=== PATIENT | female | born 1960 | race Two or more races ===

== ENCOUNTER 2017-06-24 17:37 | Inpatient (IN) | payer MEDICAID ==
[~2017-06-24] VITALS: Ht 162.6 cm; Wt 63.2 kg
[2017-06-24] VITALS (20 sets, daily range): BP systolic 53–132; BP diastolic 28–90
[~2017-06-24 17:37] MED LIST: Ertapenem 1 GM in NS 55 ML IV SCH
[2017-06-24] MEDS ORDERED: Vancomycin 1 GM in NS 275 ML IV ONE (17:45)
[2017-06-24] MEDS ORDERED: Zemuron 50mg/5ml Inj IV ONE (17:45)
[2017-06-24] MEDS ORDERED: Cefepime HCl 1 GM in NS 55 ML IV SCH (17:45)
[2017-06-24] MEDS ORDERED: Etomidate 40mg/20ml Inj IV ONE (17:45)
[2017-06-24] MEDS ORDERED: Cefepime 1gm vial ONE (17:56)
[2017-06-24] MEDS ORDERED: Levophed 4mg/4mL Inj IV ONE (18:41)
[2017-06-24 18:53] LABS: ABG ALLEN TEST POSITIVE; ABG BASE EXCESS 8.4; ABG PCO2 54.2 mmHg (35.0-45.0)
[2017-06-24 18:54] LABS: MEAN CORPUSCULAR HEMOGLOBIN 30.3 PG (27.0-31.0); MEAN CORPUSCULAR HGB CONC 32.8 G/DL (32.0-36.0); MEAN CORPUSCULAR VOLUME 93 FL (80-99); PLATELET COUNT 430 K/UL (150-450); RED BLOOD COUNT 2.94 M/UL (4.20-5.40); RED CELL DISTRIBUTION WIDTH 18.2 % (11.6-14.8); WHITE BLOOD COUNT 21.1 K/UL (4.8-10.8)
--- NOTE | 2017-06-24 18:55 | Emergency Room Report ---
History of Present Illness General Chief Complaint: Vomiting Source: Patient, EMS Present Illness HPI Patient is brought in by EMS. Report is obtained through them. Apparently she has stage IV metastatic cancer. I am uncertain of the source. She is being treated at [facility]. She was recently discharged from [facility]. Apparently for the past couple days the patient has been unresponsive at home. The called 911. On arrival she has a GCS of 3, is unresponsive and has agonal breathing. She is bradycardic with a pulse ox in the high 40s. Apparently she had an episode of emesis just prior to arrival. There is no other history available. Allergies: Coded Allergies: No Known Allergies (Unverified , 06/24/17) Patient History Past Medical History: see triage record, unable to obtain, other - Stage 4 metastatic ca Past Surgical History: unable to obtain Pertinent Family History: unable to obtain Nursing Documentation-PMH Hx Cancer: Yes - STAGE 4 CARCINOMA Review of Systems All Other Systems: limited Physical Exam Vital Signs Date Time Temp Pulse Resp B/P (MAP) Pulse Ox O2 Delivery O2 Flow Rate FiO2 06/24/17 17:27 19 109/69 93 Non-Rebreather 15.0 06/24/17 17:38 124 100 Sp02 EP Interpretation: reviewed, abnormal General Appearance: severe distress, other - Unresponsive, agonal breathing. Head: normocephalic, atraumatic ENT: no angioedema, other - Dark colored fluid pouring from esophagus Neck: normal inspection, full range of motion, supple Respiratory: other - agonal breathing, No BS on the L. Cardiovascular #1: bradycardia Gastrointestinal: distended Musculoskeletal: normal inspection Neurologic: other - GCS 3 Skin: normal inspection, other - See RN skin exam Procedures Intubation Intubation : Consent: Emergent Intubation Method: orotracheal Tube Size (cm): 7.5 Medications: Etomidate, Rocuronium Breath Sounds after Intubation: right greater than left Intubation Complications: no complications Post Intubation Xray: Yes Progress/Xray Impression: Deep about 1 cm into R. main stem bronchus Attempts: One Patient Tolerated: Well Complications: None Medical Decision Making Diagnostic Impression: Primary Impression: Respiratory failure Additional Impressions: Pulmonary edema Pleural effusion Sepsis Hypotension Anemia Lactic acid acidosis Septic shock Elevated troponin ER Course This patient presented in respiratory failure. She also appears to likely have aspirated. She was intubated on arrival with rapid sequence intubation. See my procedure note. She also is hypertensive, tachycardic with a leukocytosis. She meets criteria for septic shock. She was given aggressive IV fluid resuscitation, broad-spectrum antibiotics and started on levophed. The patient' s chest x-ray showed white out of the left chest. The initial endotracheal tube was in the right mainstem. This was retracted 2 cm. Repeat chest x-ray shows good inflation of the left lung. There was some residual left pleural effusion. This patient has a very poor prognosis. This patient is critically ill. This patient required complex medical decision- making, aggressive intervention, extensive laboratory workup and monitoring. Critical care time: 40 minutes. Laboratory Tests Test 06/24/17 18:00 06/24/17 18:17 06/24/17 19:27 06/24/17 19:29 White Blood Count 21.1 K/UL (4.8-10.8) H Red Blood Count 2.94 M/UL (4.20-5.40) L Hemoglobin 8.9 G/DL (12.0-16.0) L Hematocrit 27.3 % (37.0-47.0) L Mean Corpuscular Volume 93 FL (80-99) Mean Corpuscular Hemoglobin 30.3 PG (27.0-31.0) Mean Corpuscular Hemoglobin Concent 32.8 G/DL (32.0-36.0) Red Cell Distribution Width 18.2 % (11.6-14.8) H Platelet Count 430 K/UL (150-450) Mean Platelet Volume 6.0 FL (6.5-10.1) L Neutrophils (%) (Auto) % (45.0-75.0) Lymphocytes (%) (Auto) % (20.0-45.0) Monocytes (%) (Auto) % (1.0-10.0) Eosinophils (%) (Auto) % (0.0-3.0) Basophils (%) (Auto) % (0.0-2.0) Neutrophils % (Manual) Pending Lymphocytes % (Manual) Pending Platelet Estimate Pending Platelet Morphology Pending Prothrombin Time 14.0 SEC (9.30-11.50) H Prothrombin Time INR 1.3 (0.9-1.1) H PTT 45 SEC (23-33) H Sodium Level 145 mEQ/L (135-145) Potassium Level 4.8 mEQ/L (3.4-4.9) Chloride Level 105 mEQ/L (98-107) Carbon Dioxide Level 33 mEQ/L (20-30) H Anion Gap 7 (5-15) Blood Urea Nitrogen 31 mg/dL (7-23) H Creatinine 0.7 mg/dL (0.5-0.9) Estimate Glomerular Filtration Rate > 60 mL/min (>60) Glucose Level 180 mg/dL (74-106) H Lactic Acid Level 3.10 mmol/L (0.66-2.22) H 1.70 mmol/L (0.66-2.22) Calcium Level 7.8 mg/dL (8.6-10.2) L Magnesium Level 2.3 mg/dL (1.7-2.5) Total Bilirubin 0.2 mg/dL (0.0-1.2) Aspartate Amino Transferase (AST) 19 U/L (5-40) Alanine Aminotransferase (ALT) 12 U/L (3-33) Alkaline Phosphatase 293 U/L (35-104) H Total Creatine Kinase 67 U/L (26-140) Creatine Kinase MB < 1.5 ng/mL (< 3.8) Creatine Kinase MB Relative Index Troponin I 0.34 ng/mL (<=0.30) *H Total Protein 5.1 g/dL (6.6-8.7) L Albumin 2.7 g/dL (3.5-5.2) L Globulin 2.4 g/dL Albumin/Globulin Ratio 1.1 (1.0-2.7) Arterial Blood pH 7.416 (7.350-7.450) Arterial Blood Partial Pressure CO2 54.2 mmHg (35.0-45.0) H Arterial Blood Partial Pressure O2 173.2 mmHg (75.0-100.0) H Arterial Blood HCO3 34.1 mmol/L (22.0-26.0) H Arterial Blood Oxygen Saturation 99.0 % (92.0-98.0) H Arterial Blood Base Excess 8.4 Jeffry Test Positive Urine Color Yellow Urine Appearance Slightly cloudy Urine pH 6 (4.5-8.0) Urine Specific [place] 1.020 (1.005-1.035) Urine Protein 3+ (NEGATIVE) H Urine Glucose (UA) Negative (NEGATIVE) Urine Ketones 1+ (NEGATIVE) H Urine Occult Blood 3+ (NEGATIVE) H Urine Nitrite Negative (NEGATIVE) Urine Bilirubin Negative (NEGATIVE) Urine Urobilinogen Normal MG/DL (0.0-1.0) Urine Leukocyte Esterase 1+ (NEGATIVE) H Urine RBC Pending Urine WBC Pending Urine Squamous Epithelial Cells Pending Urine Bacteria Pending EKG Diagnostic Results Rate: tachycardiac Rhythm: other ST Segments: no acute changes Other Impression S.tachycardia Rhythm Strip Diag. Results EP Interpretation: yes Rate: 130's Rhythm: no ectopy, other Other Impression A.tachycardia Chest X-Ray Diagnostic Results Chest X-Ray Diagnostic Results : Chest X-Ray Ordered: Yes # of Views/Limited/Complete: 1 View Indication: Shortness of Breath EP Interpretation: Yes Interpretation: other Impression: Other - Entire left lung opacified. Diffuse pulmonary edema. Endotracheal tube in the right mainstem. Appropriate and G-tube placement Electronically Signed by: Iliana CT/MRI/US Diagnostic Results CT/MRI/US Diagnostic Results : Imaging Test Ordered: CT head Impression No identifiable acute or recent territorial infarct. No localizing mass effect or edema. No midline shift or hemorrhage. Last Vital Signs Date Time Temp Pulse Resp B/P (MAP) Pulse Ox O2 Delivery O2 Flow Rate FiO2 06/24/17 17:44 129 14 100 06/24/17 17:38 68/40 93 Mechanical Ventilator 06/24/17 17:27 15.0 Disposition: ADMITTED INPATIENT Condition: Critical Referrals: NON PHYSICIAN (PCP) ROSAMARIA YO D.O. Jun 24, 2017 18:55
[2017-06-24] MEDS ORDERED: Vancomycin 1gm inj IVPB ONE (18:56)
[2017-06-24 18:59] LABS: INR 1.3 (0.9-1.1)
[2017-06-24 19:09] LABS: ALANINE AMINOTRANSFERASE 12 U/L (3-33); ALBUMIN/GLOBULIN RATIO 1.1 (1.0-2.7); ANION GAP 7 (5-15); ASPARTATE AMINO TRANSFERASE 19 U/L (5-40); CALCIUM 7.8 mg/dL (8.6-10.2); CARBON DIOXIDE 33 mEQ/L (20-30); CHLORIDE 105 mEQ/L (98-107); CREATININE 0.7 mg/dL (0.5-0.9); GLOMERULAR FILTRATION RATE > 60 mL/min (>60); HEMOLYSIS 9; MAGNESIUM 2.3 mg/dL (1.7-2.5); POTASSIUM 4.8 mEQ/L (3.4-4.9); SODIUM 145 mEQ/L (135-145); TOTAL PROTEIN 5.1 g/dL (6.6-8.7)
[2017-06-24 19:13] LABS: REFLEX LACTIC ACID YES OR NO YES
[2017-06-24 19:15] LABS: TROPONIN I 0.34 ng/mL (<=0.30)
[2017-06-24 19:20] LABS: CKMB < 1.5 ng/mL (< 3.8)
[2017-06-24 19:46] LABS: KETONES,URINE 1+ (NEGATIVE); LEUKOCYTE ESTERASE ,URINE 1+ (NEGATIVE); NITRITE,URINE NEGATIVE (NEGATIVE); PH,URINE 6 (4.5-8.0); PROTEIN,URINE 3+ (NEGATIVE); UROBILINOGEN,URINE NORMAL MG/DL (0.0-1.0)
[2017-06-24 19:49] LABS: APPEARANCE,URINE SLIGHTLY CLOUDY
[2017-06-24] MEDS ORDERED: NKM (19:53)
[2017-06-24 20:26] LABS: AMORPHOUS SEDIMENT,UR MODERATE /LPF; BACTERIA,URINE MODERATE /HPF; SQUAMOUS EPITHELIAL CELL,UR FEW /LPF (NONE/OCC)
[2017-06-24 20:36] LABS: ANISOCYTOSIS 1+; BAND NEUTROPHILS % (MANUAL) 3 % (0-8); BASOPHILS % (MANUAL) 0 % (0-2); EOSINOPHILS % (MANUAL) 0 % (0-3); HYPOCHROMASIA 1+; LYMPHOCYTES % (MANUAL) 11 % (20-45); NEUTROPHILS % (MANUAL) 82 % (45-75); PLATELET ESTIMATE ADEQUATE; PLATELET MORPHOLOGY NORMAL; TOTAL CELLS COUNTED 100
[2017-06-24] MEDS ORDERED: LORazepam Inj 2mg/ml 1ml IV PRN (21:30)
[2017-06-24] MEDS ORDERED: Miralax 17gm pkt ORAL PRN (21:30)
[2017-06-24] MEDS ORDERED: DuoNeb 0.5-3(2.5)mg/3ml neb HHN PRN (21:30)
[2017-06-24] MEDS ORDERED: Amikacin Rx to dose MISC PRN (22:00)
--- NOTE | 2017-06-24 23:05 | History and Physical ---
History of Present Illness General Date patient seen: Jun 24, 2017 Reason for Hospitalization: Vomiting Present Illness HPI 56 year old female with hx of metastatic cancer, brought in by EMS since she has been unresponsive at home for a few days. On arrival she had a GCS of 3, was unresponsive and had agonal breathing. She was bradycardic with a pulse ox in the high 40s. She was intubated in ER and started on pressors and transferred to ICU. Allergies: Coded Allergies: No Known Allergies (Unverified , 06/24/17) Medication History Scheduled Enoxaparin* (Lovenox*), 1 ML SUBQ DAILY, (Reported) Levofloxacin* (Levaquin*), 750 MG ORAL DAILY, (Reported) Metronidazole* (Flagyl*), 500 MG ORAL EVERY 6 HOURS, (Reported) No Known Medications* (NKM - No Known Medications*), 0 ., (Reported) Omeprazole (Omeprazole), 20 MG ORAL BID, (Reported) Potassium Chloride (Potassium Chloride), 30 MEQ PO EVERY 12 HOURS, (Reported) Scheduled PRN Acetaminophen* (Tylenol Extra Strength*), 500 MG ORAL Q6H PRN for fever, ( Reported) Morphine 10mg/5ml Oral Soln* (Morphine 10mg/5ml Oral Soln*), 15 MG ORAL EVERY 12 HOURS PRN for For Pain, (Reported) Morphine 10mg/5ml Oral Soln* (Morphine 10mg/5ml Oral Soln*), 2.5 ML ORAL EVERY 4 HOURS PRN for For Pain, (Reported) Ondansetron Odt* (Zofran Odt*), 4 MG ORAL Q6H PRN for Nausea & Vomiting, ( Reported) Patient History Healthcare decision maker Resuscitation status Advanced Directive on File Past Medical/Surgical History Past Medical/Surgical History: (1) Metastatic adenocarcinoma Review of Systems All Other Systems: negative except mentioned in HPI Physical Exam General Appearance: cachetic Lines, tubes and drains: peripheral HEENT: normocephalic, atraumatic Neck: non-tender, normal alignment Respiratory/Chest: chest wall non-tender, lungs clear Cardiovascular/Chest: normal peripheral pulses, normal rate Abdomen: normal bowel sounds, non tender Genitourinary/Rectal: normal genital exam Skin Exam: normal pigmentation Last 24 Hour Vital Signs Date Time Temp Pulse Resp B/P (MAP) Pulse Ox O2 Delivery O2 Flow Rate FiO2 9/11/17 22:28 95/57 06/24/17 21:29 110 14 60 06/24/17 19:50 103.9 126 14 125/65 100 Mechanical Ventilator 15.0 100 06/24/17 19:40 125/65 06/24/17 19:39 15.0 100 06/24/17 19:30 120 14 60 06/24/17 19:30 126 14 127/88 100 Mechanical Ventilator 60 06/24/17 19:15 130 14 125/90 100 Mechanical Ventilator 15.0 100 06/24/17 19:00 103.9 106 14 132/85 100 Mechanical Ventilator 15.0 100 06/24/17 18:55 67/44 06/24/17 18:54 67/44 06/24/17 17:44 129 14 100 06/24/17 17:38 124 18 68/40 93 Mechanical Ventilator 100 06/24/17 17:27 19 109/69 93 Non-Rebreather 15.0 Intake and Output 06/24/17 06/25/17 19:00 07:00 Intake Total 0 ml Output Total 0 ml Balance 0 ml Intake Oral 0 ml Output Urine Total 0 ml # Voids 20 Laboratory Tests Test 06/24/17 18:00 06/24/17 18:17 06/24/17 19:27 06/24/17 19:29 White Blood Count 21.1 K/UL (4.8-10.8) H Red Blood Count 2.94 M/UL (4.20-5.40) L Hemoglobin 8.9 G/DL (12.0-16.0) L Hematocrit 27.3 % (37.0-47.0) L Mean Corpuscular Volume 93 FL (80-99) Mean Corpuscular Hemoglobin 30.3 PG (27.0-31.0) Mean Corpuscular Hemoglobin Concent 32.8 G/DL (32.0-36.0) Red Cell Distribution Width 18.2 % (11.6-14.8) H Platelet Count 430 K/UL (150-450) Mean Platelet Volume 6.0 FL (6.5-10.1) L Neutrophils (%) (Auto) % (45.0-75.0) Lymphocytes (%) (Auto) % (20.0-45.0) Monocytes (%) (Auto) % (1.0-10.0) Eosinophils (%) (Auto) % (0.0-3.0) Basophils (%) (Auto) % (0.0-2.0) Differential Total Cells Counted 100 Neutrophils % (Manual) 82 % (45-75) H Lymphocytes % (Manual) 11 % (20-45) L Monocytes % (Manual) 4 % (1-10) Eosinophils % (Manual) 0 % (0-3) Basophils % (Manual) 0 % (0-2) Band Neutrophils 3 % (0-8) Platelet Estimate Adequate Platelet Morphology Normal Hypochromasia 1+ Anisocytosis 1+ Prothrombin Time 14.0 SEC (9.30-11.50) H Prothromb Time International Ratio 1.3 (0.9-1.1) H Activated Partial Thromboplast Time 45 SEC (23-33) H Sodium Level 145 mEQ/L (135-145) Potassium Level 4.8 mEQ/L (3.4-4.9) Chloride Level 105 mEQ/L (98-107) Carbon Dioxide Level 33 mEQ/L (20-30) H Anion Gap 7 (5-15) Blood Urea Nitrogen 31 mg/dL (7-23) H Creatinine 0.7 mg/dL (0.5-0.9) Estimat Glomerular Filtration Rate > 60 mL/min (>60) Glucose Level 180 mg/dL (74-106) H Lactic Acid Level 3.10 mmol/L (0.66-2.22) H 1.70 mmol/L (0.66-2.22) Calcium Level 7.8 mg/dL (8.6-10.2) L Magnesium Level 2.3 mg/dL (1.7-2.5) Total Bilirubin 0.2 mg/dL (0.0-1.2) Aspartate Amino Transf (AST/SGOT) 19 U/L (5-40) Alanine Aminotransferase (ALT/SGPT) 12 U/L (3-33) Alkaline Phosphatase 293 U/L (35-104) H Total Creatine Kinase 67 U/L (26-140) Creatine Kinase MB < 1.5 ng/mL (< 3.8) Creatine Kinase MB Relative Index Troponin I 0.34 ng/mL (<=0.30) *H Total Protein 5.1 g/dL (6.6-8.7) L Albumin 2.7 g/dL (3.5-5.2) L Globulin 2.4 g/dL Albumin/Globulin Ratio 1.1 (1.0-2.7) Arterial Blood pH 7.416 (7.350-7.450) Arterial Blood Partial Pressure CO2 54.2 mmHg (35.0-45.0) H Arterial Blood Partial Pressure O2 173.2 mmHg (75.0-100.0) H Arterial Blood HCO3 34.1 mmol/L (22.0-26.0) H Arterial Blood Oxygen Saturation 99.0 % (92.0-98.0) H Arterial Blood Base Excess 8.4 Jeffry Test Positive Urine Color Yellow Urine Appearance Slightly cloudy Urine pH 6 (4.5-8.0) Urine Specific [place] 1.020 (1.005-1.035) Urine Protein 3+ (NEGATIVE) H Urine Glucose (UA) Negative (NEGATIVE) Urine Ketones 1+ (NEGATIVE) H Urine Occult Blood 3+ (NEGATIVE) H Urine Nitrite Negative (NEGATIVE) Urine Bilirubin Negative (NEGATIVE) Urine Urobilinogen Normal MG/DL (0.0-1.0) Urine Leukocyte Esterase 1+ (NEGATIVE) H Urine RBC 5-10 /HPF (0 - 2) H Urine WBC 2-4 /HPF (0 - 2) Urine Squamous Epithelial Cells Few /LPF (NONE/OCC) Urine Amorphous Sediment Moderate /LPF (NONE) H Urine Bacteria Moderate /HPF (NONE) H Height (Feet): 5 Height (Inches): 4.00 Weight (Pounds): 130 Medications Current Medications Medications (Trade) Dose Ordered Sig/[place] Route PRN Reason Start Time Stop Time Status Last Admin Dose Admin Acetaminophen (Tylenol) 650 mg Q4H PRN ORAL fever 06/24/17 21:30 07/24/17 21:29 Albuterol/ Ipratropium (DuoNeb 0.5-3(2.5)mg/3ml) 3 ml Q4H PRN HHN Shortness of Breath 06/24/17 21:30 06/29/17 21:29 Amikacin Protocol (Amikacin pharmacy to dose) 1 ea DAILY PRN MISC Per rx protocol 06/24/17 22:00 07/24/17 21:59 Amikacin Sulfate 800 mg/Sodium Chloride 113.2 ml @ 113.2 mls/ hr Q24H IV 06/25/17 00:00 07/02/17 00:00 Ertapenem 1 gm/ Sodium Chloride 55 ml @ 110 mls/hr Q24H IV 06/25/17 02:00 06/30/17 01:59 Heparin Sodium (Porcine) (Heparin 5000 units/ml) 5,000 units EVERY 12 HOURS SUBQ 06/25/17 09:00 07/25/17 08:59 Lorazepam (Ativan 2mg/ml 1ml) 2 mg Q2H PRN IV For Anxiety 06/24/17 21:30 07/01/17 21:29 Morphine Sulfate (Morphine Sulfate) 4 mg Q4H PRN IVP Severe Pain (Pain Scale 7-10) 06/24/17 21:30 07/01/17 21:29 Norepinephrine Bitartrate 4 mg/ Dextrose 254 ml @ 0 mls/hr Q24H IV 06/24/17 22:00 07/24/17 21:59 06/24/17 22:28 Ondansetron HCl (Zofran) 4 mg Q6H PRN IVP Nausea & Vomiting 06/24/17 21:30 07/24/17 21:29 Pantoprazole (Protonix) 40 mg DAILY IVP 06/25/17 09:00 07/25/17 08:59 Polyethylene Glycol (Miralax) 17 gm DAILYPRN PRN ORAL Constipation 06/24/17 21:30 07/24/17 21:29 Sodium Chloride 1,000 ml @ 100 mls/hr Q10H IVLG 06/24/17 22:30 07/24/17 22:29 06/24/17 22:21 Vancomycin HCl (Vanco rx to dose) 1 ea DAILY PRN MISC PRN RX PROTOCOL 06/24/17 22:00 07/24/17 21:59 Vancomycin/Sodium Chloride 250 ml @ 166.667 mls/hr Q12HR@0600,1800 IVPB 06/25/17 06:00 06/30/17 05:59 Assessment/Plan Problem List: (1) Respiratory failure ICD Codes: J96.90 - Respiratory failure, unspecified, unspecified whether with hypoxia or hypercapnia SNOMED: 461210482 (2) Septic shock ICD Codes: A41.9 - Sepsis, unspecified organism; R65.21 - Severe sepsis with septic shock SNOMED: 65650597 (3) Hypotension ICD Codes: I95.9 - Hypotension, unspecified SNOMED: 85366635, 267859093 (4) Metastatic adenocarcinoma ICD Codes: C79.9 - Secondary malignant neoplasm of unspecified site SNOMED: 3924905, 174566218 (5) Anemia ICD Codes: D64.9 - Anemia, unspecified SNOMED: 019112507 (6) Pleural effusion ICD Codes: J90 - Pleural effusion, not elsewhere classified; R65.21 - Severe sepsis with septic shock SNOMED: 75846072 Respiratory: monitor respiratory rate, adjust FIO2, CXR Cardiac: continue to monitor HR/BP Renal: F/U I&O, keep IV fluid Infectious Disease: check cultures, continue antibiotics Endocrine: monitor blood sugar Hematologic: monitor H/H, transfuse if hgb<8.5 Neurologic: PRN Morphine, keep patient comfortable Affect: PRN ativan Prophylaxis: Protonix Disposition: keep in ICU Discussed with: nurses, consultants, medical case manager NIXON CHEATHAM Jun 24, 2017 23:05
[2017-06-24] MEDS ORDERED: Vancomycin 1 GM in D5W 275 ML IV SCH (23:45)
[2017-06-25] VITALS (70 sets, daily range): BP systolic 72–126; BP diastolic 4–97
[2017-06-25] MEDS: Amikacin 800 MG in NS 110 ML IV SCH (00:06)
[2017-06-25] MEDS: Ertapenem 1 GM in NS 55 ML IV SCH (01:41)
[2017-06-25] MEDS ORDERED: TYLENOL EXTRA500 MG ORAL (02:01)
[2017-06-25] MEDS ORDERED: ZOFRAN ODT4 MG ORAL (02:01)
[2017-06-25] MEDS ORDERED: LEVAQUIN750 MG ORAL (02:01)
[2017-06-25] MEDS ORDERED: METRONIDAZOLE500 MG ORAL (02:01)
[2017-06-25] MEDS ORDERED: POTASSIUM40 MEQ/11 PO (02:01)
[2017-06-25] MEDS ORDERED: MORPHINE S10 MG/5 ML ORAL ×2 (02:01)
[2017-06-25] MEDS ORDERED: OMEPRAZOLE20 M2 ORAL (02:01)
[2017-06-25] MEDS ORDERED: LOVENOX10 MG SUBQ (02:01)
[2017-06-25] MEDS: Morphine Sulfate 4mg/ml Inj IVP PRN ×3 (03:06→21:52)
[2017-06-25 05:24] LABS: MEAN CORPUSCULAR HEMOGLOBIN 30.3 PG (27.0-31.0); MEAN CORPUSCULAR HGB CONC 32.8 G/DL (32.0-36.0); MEAN CORPUSCULAR VOLUME 92 FL (80-99); PLATELET COUNT 468 K/UL (150-450); RED BLOOD COUNT 3.04 M/UL (4.20-5.40); RED CELL DISTRIBUTION WIDTH 17.8 % (11.6-14.8); WHITE BLOOD COUNT 20.1 K/UL (4.8-10.8)
[2017-06-25 05:44] LABS: ALANINE AMINOTRANSFERASE 15 U/L (3-33); ALBUMIN/GLOBULIN RATIO 1.2 (1.0-2.7); ANION GAP 12 (5-15); ASPARTATE AMINO TRANSFERASE 53 U/L (5-40); BILIRUBIN,DIRECT 0.1 mg/dL (0.1-0.3); CALCIUM 7.5 mg/dL (8.6-10.2); CARBON DIOXIDE 30 mEQ/L (20-30); CHLORIDE 110 mEQ/L (98-107); CREATININE 0.6 mg/dL (0.5-0.9); GLOMERULAR FILTRATION RATE > 60 mL/min (>60); HEMOLYSIS 13; POTASSIUM 3.8 mEQ/L (3.4-4.9); SODIUM 152 mEQ/L (135-145)
[2017-06-25 05:45] LABS: MAGNESIUM 1.9 mg/dL (1.7-2.5)
[2017-06-25 06:04] LABS: PHOSPHORUS 0.5 mg/dL (2.5-4.8)
[2017-06-25] MEDS: Vancomycin 750mg/NS 250ml 250 ML IVPB SCH ×2 (06:27→18:17)
[2017-06-25] MEDS: Heparin 5000 units/ml inj SUBQ SCH ×2 (08:45→21:07)
[2017-06-25] MEDS ORDERED: Pantoprazole Inj IVP SCH (09:00)
[2017-06-25] MEDS ORDERED: Esomeprazole sodium 40mg vial IVP SCH (09:00)
[2017-06-25 09:07] LABS: ABG PCO2 36.4 mmHg (35.0-45.0)
[2017-06-25 09:08] LABS: ABG ALLEN TEST POSITIVE; ABG BASE EXCESS 4.4
[2017-06-25 09:09] LABS: BAND NEUTROPHILS % (MANUAL) 4 % (0-8); LYMPHOCYTES % (MANUAL) 4 % (20-45); NEUTROPHILS % (MANUAL) 88 % (45-75); TOTAL CELLS COUNTED 100
[2017-06-25 09:10] LABS: ANISOCYTOSIS 1+; MICROCYTES 2+; STOMATOCYTES 1+
[2017-06-25 09:15] LABS: BASOPHILS % (MANUAL) 0 % (0-2); EOSINOPHILS % (MANUAL) 0 % (0-3); PLATELET ESTIMATE INCREASED; PLATELET MORPHOLOGY NORMAL
[2017-06-25 09:16] LABS: SCHISTOCYTES 1+
--- NOTE | 2017-06-25 09:43 | Pulmonolgy Critical Care Note ---
Critical Care - Asmt/Plan Problems: (1) Respiratory failure (2) Septic shock (3) Hypotension (4) Lactic acid acidosis (5) Metastatic adenocarcinoma Respiratory: monitor respiratory rate, adjust FIO2, CXR Cardiac: continue pressors, continue to monitor HR/BP Renal: F/U I&O, keep IV fluid Infectious Disease: check cultures Gastrointestinal: continue feedings/current rate Endocrine: monitor blood sugar, check HgA1C Neurologic: PRN Ativan, PRN Morphine Prophylaxis: Protonix, Heparin Discussed with: nurses, special education case manageroperations manager station - Objective Last 24 Hour Vital Signs Date Time Temp Pulse Resp B/P (MAP) Pulse Ox O2 Delivery O2 Flow Rate FiO2 06/25/17 08:51 123 16 60 06/25/17 08:00 122 06/25/17 08:00 98/56 06/25/17 08:00 60 06/25/17 07:01 136 16 60 06/25/17 07:00 87/47 06/25/17 07:00 128 16 87/4 96 Mechanical Ventilator 60 06/25/17 06:45 128 16 126/60 96 Mechanical Ventilator 60 06/25/17 06:30 136 16 126/64 96 Mechanical Ventilator 60 06/25/17 06:27 87/47 06/25/17 06:15 128 16 106/63 96 Mechanical Ventilator 60 06/25/17 06:00 128 16 102/64 96 Mechanical Ventilator 60 06/25/17 06:00 102/64 06/25/17 05:45 117 16 100/66 96 Mechanical Ventilator 60 06/25/17 05:30 109 18 100/66 96 Mechanical Ventilator 60 06/25/17 05:20 116 16 60 06/25/17 05:15 108 16 95/66 96 Mechanical Ventilator 60 06/25/17 05:00 107/57 06/25/17 05:00 109 15 107/57 96 Mechanical Ventilator 60 06/25/17 04:00 100.0 109 15 100/66 96 Mechanical Ventilator 60 06/25/17 04:00 100/66 06/25/17 04:00 112 06/25/17 04:00 60 06/25/17 03:45 108 15 96/61 96 Mechanical Ventilator 60 06/25/17 03:30 105 15 89/56 96 Mechanical Ventilator 60 06/25/17 03:30 108 16 60 06/25/17 03:15 106 15 92/53 96 Mechanical Ventilator 60 06/25/17 03:00 109 15 89/58 96 Mechanical Ventilator 60 06/25/17 03:00 89/58 06/25/17 03:00 109 15 89/58 96 Mechanical Ventilator 60 06/25/17 02:45 115 15 104/69 96 Mechanical Ventilator 60 06/25/17 02:30 110 15 111/65 96 Mechanical Ventilator 60 06/25/17 02:15 109 15 116/72 96 Mechanical Ventilator 60 06/25/17 02:00 73/49 06/25/17 02:00 110 15 72/49 96 Mechanical Ventilator 60 06/25/17 01:45 110 15 98/58 96 Mechanical Ventilator 60 06/25/17 01:30 110 15 98/58 96 Mechanical Ventilator 60 06/25/17 01:20 108 16 60 06/25/17 01:15 110 15 82/58 96 Mechanical Ventilator 60 06/25/17 01:00 98/58 06/25/17 01:00 110 15 98/58 96 Mechanical Ventilator 60 06/25/17 00:45 110 15 102/58 96 Mechanical Ventilator 60 06/25/17 00:30 110 16 110/62 96 Mechanical Ventilator 60 06/25/17 00:15 110 16 102/62 96 Mechanical Ventilator 60 06/25/17 00:00 60 06/25/17 00:00 99.4 110 16 112/83 96 Mechanical Ventilator 60 06/25/17 00:00 93/55 06/24/17 23:45 106 15 110/60 99 Mechanical Ventilator 60 06/24/17 23:30 102 15 109/67 98 Mechanical Ventilator 60 06/24/17 23:28 116 06/24/17 23:23 125 21 60 06/24/17 23:15 109 15 105/43 97 Mechanical Ventilator 60 06/24/17 23:00 112 15 109/67 97 Mechanical Ventilator 60 06/24/17 23:00 107/67 06/24/17 22:45 110 15 107/68 97 Mechanical Ventilator 60 06/24/17 22:30 109 15 109/67 97 Mechanical Ventilator 60 06/24/17 22:28 95/57 06/24/17 22:15 108 15 97 Mechanical Ventilator 60 06/24/17 22:15 109 15 109/67 97 Mechanical Ventilator 60 06/24/17 22:00 109 14 95/57 97 Mechanical Ventilator 60 06/24/17 21:45 108 14 100/61 97 Mechanical Ventilator 60 06/24/17 21:30 108 14 108/55 98 Mechanical Ventilator 60 06/24/17 21:29 110 14 60 06/24/17 21:15 109 14 91/54 95 Mechanical Ventilator 60 06/24/17 21:00 116 26 101/53 96 Mechanical Ventilator 60 06/24/17 20:45 112 14 97/57 95 Mechanical Ventilator 60 06/24/17 20:30 112 14 93/53 95 Mechanical Ventilator 60 06/24/17 20:15 108 14 100/50 94 Mechanical Ventilator 60 06/24/17 20:00 98.5 134 14 97/63 97 Mechanical Ventilator 60 06/24/17 19:50 103.9 126 14 125/65 100 Mechanical Ventilator 15.0 100 06/24/17 19:40 125/65 06/24/17 19:39 15.0 100 06/24/17 19:30 120 14 60 06/24/17 19:30 126 14 127/88 100 Mechanical Ventilator 60 06/24/17 19:15 130 14 125/90 100 Mechanical Ventilator 15.0 100 06/24/17 19:00 103.9 106 14 132/85 100 Mechanical Ventilator 15.0 100 06/24/17 18:55 67/44 06/24/17 18:54 67/44 06/24/17 17:44 129 14 100 06/24/17 17:38 124 18 68/40 93 Mechanical Ventilator 100 06/24/17 17:27 19 109/69 93 Non-Rebreather 15.0 Condition: improving HEENT: atraumatic Neck: full ROM Lungs: chest wall tender Heart: HR/BP stable Abdomen: soft, non-tender, feeding tube Extremities: no C/C/E, edema Micro: Microbiology Date/Time Source Procedure Growth Status 06/24/17 19:29 Urine,Clean Catch Urine Culture - Preliminary NO GROWTH Resulted Accucheck: 151 Critical Care - Subjective ROS Limited/Unobtainable: Yes ICU Day: 2 Condition: critical EKG Rhythm: Sinus Rhythm FI02: 60 Vent Support Breath Rate: 16 Vent Support Mode: AC Vent Tidal Volume: 600 Sputum Amount: Scant PEEP: 0.0 PIP: 36 I&O: Intake and Output 9/12/17 9/13/17 19:00 07:00 Intake Total 130 ml Output Total 35 ml Balance 95 ml IV Total 130 ml Output Urine Total 35 ml CXR: ET tube in good, infiltrate end effusion. ET-Tube: 7.5 ET Position: 22 NIXON CHEATHAM Jun 25, 2017 09:43
[2017-06-25] MEDS ORDERED: Sodium Phosphate 30 MM in Sodium Chloride 550 ML IV ONE (10:30)
--- NOTE | 2017-06-25 10:54 | Diagnostic Imaging Report ---
Indication: Altered mental status Technique: Contiguous 5 mm thick transaxial imaging of the head obtained in a Siemens Sensation [address] scanner. Soft tissue and bone windows generated. Total Dose length Product (DLP): [address] Dose Index Volume (CTDIvol): 70.38, 0.15 mGy Comparison: none Findings: The size and configuration of the cortical sulci, basal cisterns, and ventricles are within normal limits for age. Probable tiny cystic focus in the left putamen. There is no mass effect, midline shift, or edema identified. There is no evidence of acute hemorrhage or abnormal intra-axial or extra-axial fluid collections. The bones and soft tissues are unremarkable. Impression: No mass effect, edema or acute bleed. Probable tiny old lacunar infarct left putamen The CT scanner at [facility] is accredited by the [employer] and the scans are performed using dose optimization techniques as appropriate to a performed exam including Automatic Exposure control.
--- NOTE | 2017-06-25 11:21 | Consultation ---
Consult Note Consult Note Patient is brought in by EMS. Report is obtained through them. Apparently she has stage IV metastatic cancer. I am uncertain of the source. She is being treated at [facility]. She was recently discharged from [facility]. Apparently for the past couple days the patient has been unresponsive at home. The called 911. On arrival she has a GCS of 3, is unresponsive and has agonal breathing. She is bradycardic with a pulse ox in the high 40s. Apparently she had an episode of emesis just prior to arrival. There is no other history available. in ICU intubated on Vent Assessment/Plan Primary Impression: Respiratory failure Additional Impressions: Pulmonary edema Pleural effusion Sepsis with Shock Hypotension Anemia Lactic acid acidosis Low albumin and proteinuria IV Phos 24 H Urine Proteins Per orders discussed with TIARRA Huang Jun 25, 2017 11:21
--- NOTE | 2017-06-25 12:33 | Diagnostic Imaging Report ---
Indication: Intubation Comparison: None 1117 A single view chest radiograph was obtained. Findings: Endotracheal tube is pulled back and is now above the ramu in satisfactory position. There is a moderate left pleural effusion and a probable right pleural effusion. There is groundglass opacities likely pulmonary edema. Impression: Endotracheal tube in good position
--- NOTE | 2017-06-25 12:35 | Diagnostic Imaging Report ---
Indication: Repositioning endotracheal tube Comparison: 06/24/2017 A single view chest radiograph was obtained. Findings: Interstitial edema again demonstrated. Alveolar component is also likely present. There is a left pleural effusion and a probable right pleural effusion. Heart size is relatively normal. Tubes and lines are satisfactory. Impression: No significant change from the prior day
--- NOTE | 2017-06-25 12:41 | Diagnostic Imaging Report ---
Indication: Dyspnea Comparison: None A single view chest radiograph was obtained. Findings: Endotracheal is in the right mainstem bronchus. There is consolidation or atelectasis involving left lower lobe. There is a left pleural effusion. Patchy infiltrate noted in the right lung base as well as well as generalized interstitial edema. Nasogastric tube in the position. Impression: Right mainstem intubation. Associated atelectasis of the left lower lobe. Left pleural effusion. Interstitial edema Superimposed infiltrate in the right lung not excluded.
[2017-06-25 12:53] LABS: URIC ACID 4.9 mg/dL (3.0-7.5)
[2017-06-25] MEDS ORDERED: Potassium Phosphate 30 MM in NS 275 ML IV ONE (17:00)
--- NOTE | 2017-06-25 17:47 | Cardiology Report ---
APPROVED REPORT EXAM: Two-dimensional and M-mode echocardiogram with Doppler and color Doppler. INDICATION Left Ventricular Function M-Mode DIMENSIONS IVSd1.0 (0.7-1.1cm)Left Atrium (MM)2.9 (1.6-4.0cm) LVDd3.9 (3.5-5.6cm)Aortic Root2.5 (2.0-3.7cm) PWd0.7 (0.7-1.1cm)Aortic Cusp Exc.1.8 (1.5-2.0cm) LVDs2.7 (2.5-4.0cm) PWs1.1 cm Technically difficult study due to poor acoustic windows and patient on ventilator. Study quality precludes accurate assessment of regional wall motion. Normal left ventricular chamber size. Global left ventricular hypokinesis. Left ventricular ejection fraction estimated to be 45-50 %. No evidence of ventricular hypertrophy. Large pleural effusion. Anterior Echo-free space, may be due to pericardial fat or effusion. All other cardiac chamber sizes are within normal limits. Mild focal aortic valve sclerosis with adequate cusp excursion. Mildly thickened mitral valve leaflets with normal excursion. Mild mitral annulus and aortic root calcification. Pulmonic valve not well visualized. Normal tricuspid valve structure. IVC at normal size with physiologic collapse. A color flow and spectral Doppler study was performed and revealed: No aortic regurgitation. No mitral regurgitation. Mitral diastolic velocities suggest reduced left ventricular relaxation (Grade I). Mild tricuspid regurgitation. Tricuspid systolic velocities suggests peak right ventricular systolic pressure of 38 mmHg, consistent with mild pulmonary hypertension. No pulmonic regurgitation present.
--- NOTE | 2017-06-25 17:57 | Cardiology Report ---
APPROVED REPORT EKG Measurement Heart [id number] Sinus tachycardia Low voltage QRS Lateral infarct, age undetermined Abnormal ECG
[2017-06-25] MEDS ORDERED: Tubing IV Secondary IV ONE (19:37)
[2017-06-25] MEDS: Pantoprazole Inj IVP SCH (21:05)
[2017-06-25] MEDS: Dyna-Hex 2% Top Sol 8oz TOPIC SCH (21:05)
--- NOTE | 2017-06-25 22:29 | Consultation ---
Consult Note Consult Note ID Dic # [id number] HENRIETTA FRANCIS M.D. Jun 25, 2017 22:29
[2017-06-26] VITALS (59 sets, daily range): BP systolic 61–122; BP diastolic 43–80
[2017-06-26] MEDS ORDERED: Amikacin 500mg/2mL Inj ONE (00:21)
[2017-06-26] MEDS: Amikacin 800 MG in NS 110 ML IV SCH (00:33)
[2017-06-26] MEDS: Ertapenem 1 GM in NS 55 ML IV SCH (01:56)
[2017-06-26 05:50] LABS: MEAN CORPUSCULAR HEMOGLOBIN 28.3 PG (27.0-31.0); MEAN CORPUSCULAR HGB CONC 31.4 G/DL (32.0-36.0); MEAN CORPUSCULAR VOLUME 90 FL (80-99); MEAN PLATELET VOLUME 6.2 FL (6.5-10.1); PLATELET COUNT 421 K/UL (150-450); RED BLOOD COUNT 3.19 M/UL (4.20-5.40); RED CELL DISTRIBUTION WIDTH 17.9 % (11.6-14.8)
[2017-06-26] MEDS: Vancomycin 750mg/NS 250ml 250 ML IVPB SCH ×2 (05:50→18:32)
[2017-06-26 06:01] LABS: WHITE BLOOD COUNT 22.8 K/UL (4.8-10.8)
[2017-06-26 06:12] LABS: ALANINE AMINOTRANSFERASE 91 U/L (3-33); ALBUMIN/GLOBULIN RATIO 0.9 (1.0-2.7); ANION GAP 13 (5-15); ASPARTATE AMINO TRANSFERASE 389 U/L (5-40); CALCIUM 6.9 mg/dL (8.6-10.2); CARBON DIOXIDE 29 mEQ/L (20-30); CHLORIDE 109 mEQ/L (98-107); CREATININE 0.5 mg/dL (0.5-0.9); GLOMERULAR FILTRATION RATE > 60 mL/min (>60); HEMOLYSIS 1; MAGNESIUM 1.7 mg/dL (1.7-2.5); PHOSPHORUS 2.9 mg/dL (2.5-4.8); POTASSIUM 3.3 mEQ/L (3.4-4.9); SODIUM 151 mEQ/L (135-145)
[2017-06-26 06:17] LABS: THYROID STIMULATING HORMONE 2.1 uIU/mL (0.300-4.500)
[2017-06-26] MEDS: Pantoprazole Inj IVP SCH ×2 (08:33→20:37)
[2017-06-26] MEDS: Dyna-Hex 2% Top Sol 8oz TOPIC SCH (08:34)
[2017-06-26] MEDS: Heparin 5000 units/ml inj SUBQ SCH ×2 (08:39→20:39)
[2017-06-26 09:08] LABS: ABG ALLEN TEST POSITIVE; ABG BASE EXCESS 4.4; ABG PCO2 42.3 mmHg (35.0-45.0)
[2017-06-26 09:17] LABS: ANISOCYTOSIS 1+; BAND NEUTROPHILS % (MANUAL) 4 % (0-8); BASOPHILS % (MANUAL) 0 % (0-2); EOSINOPHILS % (MANUAL) 0 % (0-3); LYMPHOCYTES % (MANUAL) 3 % (20-45); NEUTROPHILS % (MANUAL) 89 % (45-75); NUCLEATED RED BLOOD CELLS 1 /100 WBC; PLATELET ESTIMATE INCREASED; PLATELET MORPHOLOGY NORMAL; SCHISTOCYTES 1+; TOTAL CELLS COUNTED 100
[2017-06-26 09:18] LABS: BLISTER CELL 1+; HYPOCHROMASIA 1+; STOMATOCYTES 1+
[2017-06-26] MEDS: Midodrine 10mg tab NG SCH ×3 (10:24→18:09)
--- NOTE | 2017-06-26 10:34 | Pulmonolgy Critical Care Note ---
Critical Care - Asmt/Plan Problems: (1) Respiratory failure (2) Septic shock (3) Hypotension (4) Lactic acid acidosis (5) Metastatic adenocarcinoma Respiratory: monitor respiratory rate, adjust FIO2, CXR Cardiac: continue to monitor HR/BP Renal: F/U I&O, keep IV fluid, check electrolytes Infectious Disease: check cultures Gastrointestinal: continue feedings/current rate Endocrine: monitor blood sugar, check HgA1C, continue sliding scale insulin Hematologic: transfuse if hgb<8.5 Neurologic: PRN Ativan, PRN Morphine, keep patient comfortable Affect: PRN ativan Prophylaxis: Protonix, Heparin Notes Reviewed: cardio, renal Discussed with: nurses, consultants, outpatient case managerspd manager - Objective Last 24 Hour Vital Signs Date Time Temp Pulse Resp B/P (MAP) Pulse Ox O2 Delivery O2 Flow Rate FiO2 06/26/17 10:00 112 18 102/64 97 Mechanical Ventilator 60 06/26/17 09:30 118 17 96/58 97 Mechanical Ventilator 60 06/26/17 09:00 110 17 108/66 97 Mechanical Ventilator 60 06/26/17 09:00 65/36 06/26/17 08:44 124 26 75 06/26/17 08:30 107 17 61/43 96 Mechanical Ventilator 60 06/26/17 08:00 110 06/26/17 08:00 92/40 06/26/17 08:00 60 06/26/17 08:00 98.2 112 17 94/60 96 Mechanical Ventilator 60 06/26/17 07:30 108 16 95/58 97 Mechanical Ventilator 60 06/26/17 07:00 108 17 97/72 96 Mechanical Ventilator 60 06/26/17 06:53 110 23 75 06/26/17 06:45 109 16 90/57 96 Mechanical Ventilator 60 06/26/17 06:30 109 16 102/65 94 Mechanical Ventilator 60 06/26/17 06:15 108 16 89/58 91 Mechanical Ventilator 60 06/26/17 06:00 108 16 96/57 92 Mechanical Ventilator 60 06/26/17 05:45 108 17 92/61 93 Mechanical Ventilator 60 06/26/17 05:30 108 17 92/61 93 Mechanical Ventilator 60 06/26/17 05:24 112 17 75 06/26/17 05:15 113 17 96/65 95 Mechanical Ventilator 60 06/26/17 05:00 108 18 96/65 97 Mechanical Ventilator 60 06/26/17 04:45 106 16 95/64 97 Mechanical Ventilator 60 06/26/17 04:30 106 16 97/61 96 Mechanical Ventilator 60 06/26/17 04:15 106 16 96/63 97 Mechanical Ventilator 60 06/26/17 04:00 107 06/26/17 04:00 99.8 107 16 97/65 96 Mechanical Ventilator 60 06/26/17 04:00 60 06/26/17 03:45 105 16 98/68 96 Mechanical Ventilator 60 06/26/17 03:30 106 16 95/66 96 Mechanical Ventilator 60 06/26/17 03:16 106 17 75 06/26/17 03:15 108 16 94/62 97 Mechanical Ventilator 60 06/26/17 03:00 106 16 103/70 97 Mechanical Ventilator 60 06/26/17 02:45 104 16 113/78 97 Mechanical Ventilator 60 06/26/17 02:30 107 16 120/74 96 Mechanical Ventilator 60 06/26/17 02:00 106 16 116/80 96 Mechanical Ventilator 60 06/26/17 01:45 106 16 107/66 96 Mechanical Ventilator 60 06/26/17 01:30 106 16 109/73 96 Mechanical Ventilator 60 06/26/17 01:10 102 16 75 06/26/17 01:00 106 16 105/76 97 Mechanical Ventilator 60 06/26/17 00:45 105 16 107/73 97 Mechanical Ventilator 60 06/26/17 00:30 108 16 99/70 97 Mechanical Ventilator 60 06/26/17 00:25 110/74 06/26/17 00:15 109 16 102/74 97 Mechanical Ventilator 60 06/26/17 00:00 99.2 102 16 110/74 97 Mechanical Ventilator 60 06/26/17 00:00 102 06/26/17 00:00 60 06/25/17 23:30 103 16 75 06/25/17 23:30 101 16 114/67 97 Mechanical Ventilator 60 06/25/17 23:15 100 16 106/62 97 Mechanical Ventilator 60 06/25/17 23:00 100 16 99/63 97 Mechanical Ventilator 60 06/25/17 22:30 99.2 06/25/17 21:30 116 16 75 06/25/17 21:30 105 16 100/63 97 Mechanical Ventilator 60 06/25/17 21:15 108 16 102/65 97 Mechanical Ventilator 60 06/25/17 21:00 106 16 101/56 97 Mechanical Ventilator 60 06/25/17 20:45 113 16 104/45 97 Mechanical Ventilator 60 06/25/17 20:30 108 17 117/72 97 Mechanical Ventilator 60 06/25/17 20:15 110 17 105/66 97 Mechanical Ventilator 60 06/25/17 20:00 60 06/25/17 20:00 99.6 111 16 109/66 93 Mechanical Ventilator 60 06/25/17 20:00 109 06/25/17 19:45 111 16 112/67 93 Mechanical Ventilator 60 06/25/17 19:30 109 16 120/78 93 Mechanical Ventilator 60 06/25/17 19:30 115 16 75 06/25/17 19:15 111 16 102/64 93 Mechanical Ventilator 60 06/25/17 19:00 113 16 97/64 94 Mechanical Ventilator 60 06/25/17 18:45 112 16 110/64 94 Mechanical Ventilator 60 06/25/17 18:28 113 16 110/66 93 Mechanical Ventilator 60 06/25/17 18:00 100.3 117 16 118/69 93 Mechanical Ventilator 60 06/25/17 17:30 114 16 97/75 93 Mechanical Ventilator 60 06/25/17 17:00 112 16 101/65 94 Mechanical Ventilator 60 06/25/17 16:45 114 16 98/68 94 Mechanical Ventilator 60 06/25/17 16:42 118 16 60 06/25/17 16:30 118 16 100/67 94 Mechanical Ventilator 60 06/25/17 16:03 60 06/25/17 16:02 125 06/25/17 16:00 99.8 123 16 101/61 93 Mechanical Ventilator 60 06/25/17 15:45 125 16 111/64 94 Mechanical Ventilator 60 06/25/17 15:30 118 16 122/97 96 Mechanical Ventilator 60 06/25/17 15:15 119 16 99/65 96 Mechanical Ventilator 60 06/25/17 15:15 119 16 60 06/25/17 15:00 118 16 102/73 97 Mechanical Ventilator 60 06/25/17 14:30 123 16 115/66 97 Mechanical Ventilator 60 06/25/17 14:30 115/66 06/25/17 14:00 119 16 110/63 97 Mechanical Ventilator 60 06/25/17 13:15 119 16 102/62 96 Mechanical Ventilator 60 06/25/17 13:00 123 16 106/62 96 Mechanical Ventilator 60 06/25/17 13:00 102/62 06/25/17 12:58 100.1 06/25/17 12:45 123 16 106/60 96 Mechanical Ventilator 60 06/25/17 12:41 122 16 60 06/25/17 12:30 126 16 95/61 95 Mechanical Ventilator 60 06/25/17 12:15 125 16 109/64 95 Mechanical Ventilator 60 06/25/17 12:02 130 06/25/17 12:00 60 06/25/17 11:59 100.4 129 18 122/71 94 Mechanical Ventilator 60 06/25/17 11:45 114/78 06/25/17 11:30 130 19 122/76 95 Mechanical Ventilator 60 06/25/17 11:00 127 16 114/75 95 Mechanical Ventilator 60 06/25/17 10:42 134 17 60 Status: sedated Condition: critical HEENT: atraumatic Neck: full ROM Lungs: chest wall tender Heart: HR/BP stable, HR/BP unstable Abdomen: non-tender, active bowel sounds Extremities: no C/C/E, edema Decubiti: location Micro: Microbiology Date/Time Source Procedure Growth Status 06/24/17 18:30 Blood Blood Culture - Preliminary Resulted 06/24/17 17:00 Blood Blood Culture - Preliminary NO GROWTH AFTER 24 HOURS Resulted 06/25/17 10:50 Sputum Gram Stain - Final Resulted 06/25/17 10:50 Sputum Sputum Culture Pending Resulted 06/24/17 19:29 Urine,Clean Catch Urine Culture - Preliminary NO GROWTH AFTER 24 HOURS Resulted Accucheck: 151 Critical Care - Subjective ROS Limited/Unobtainable: No ICU Day: 3 Intubation Day: 3 Condition: critical FI02: 60 Vent Support Breath Rate: 16 Vent Support Mode: AC Vent Tidal Volume: 600 Sputum Amount: Moderate PEEP: 0.0 PIP: 41 I&O: Intake and Output 06/26/17 06/27/17 19:00 07:00 Intake Total 280.48 ml Output Total 70 ml Balance 210.48 ml IV Total 280.48 ml Output Urine Total 70 ml CXR: ET in good position ET-Tube: 7.5 ET Position: 22 Labs: Laboratory Tests Test 06/25/17 12:15 06/26/17 05:00 06/26/17 09:05 Uric Acid 4.9 mg/dL (3.0-7.5) Iron Level 19 ug/dL (37-145) L Total Iron Binding Capacity 74 ug/dL (250-400) L Percent Iron Saturation 26 % (15-50) Unsaturated Iron Binding 55 ug/dL (112-346) L Ferritin 4320 ng/mL (13-150) H Folate Pending Random Amikacin Level 7.6 ug/mL White Blood Count 22.8 K/UL (4.8-10.8) *H Red Blood Count 3.19 M/UL (4.20-5.40) L Hemoglobin 9.0 G/DL (12.0-16.0) L Hematocrit 28.8 % (37.0-47.0) L Mean Corpuscular Volume 90 FL (80-99) Mean Corpuscular Hemoglobin 28.3 PG (27.0-31.0) Mean Corpuscular Hemoglobin Concent 31.4 G/DL (32.0-36.0) L Red Cell Distribution Width 17.9 % (11.6-14.8) H Platelet Count 421 K/UL (150-450) Mean Platelet Volume 6.2 FL (6.5-10.1) L Neutrophils (%) (Auto) % (45.0-75.0) Lymphocytes (%) (Auto) % (20.0-45.0) Monocytes (%) (Auto) % (1.0-10.0) Eosinophils (%) (Auto) % (0.0-3.0) Basophils (%) (Auto) % (0.0-2.0) Differential Total Cells Counted 100 Neutrophils % (Manual) 89 % (45-75) H Lymphocytes % (Manual) 3 % (20-45) L Monocytes % (Manual) 4 % (1-10) Eosinophils % (Manual) 0 % (0-3) Basophils % (Manual) 0 % (0-2) Band Neutrophils 4 % (0-8) Nucleated Red Blood Cells 1 /100 WBC Platelet Estimate Increased H Platelet Morphology Normal Hypochromasia 1+ Anisocytosis 1+ Stomatocytes 1+ Blister Cells 1+ Schistocytes 1+ Sodium Level 151 mEQ/L (135-145) H Potassium Level 3.3 mEQ/L (3.4-4.9) L Chloride Level 109 mEQ/L (98-107) H Carbon Dioxide Level 29 mEQ/L (20-30) Anion Gap 13 (5-15) Blood Urea Nitrogen 21 mg/dL (7-23) Creatinine 0.5 mg/dL (0.5-0.9) Estimat Glomerular Filtration Rate > 60 mL/min (>60) Glucose Level 151 mg/dL (74-106) H Calcium Level 6.9 mg/dL (8.6-10.2) L Phosphorus Level 2.9 mg/dL (2.5-4.8) Magnesium Level 1.7 mg/dL (1.7-2.5) Total Bilirubin 0.3 mg/dL (0.0-1.2) Aspartate Amino Transf (AST/SGOT) 389 U/L (5-40) H Alanine Aminotransferase (ALT/SGPT) 91 U/L (3-33) H Alkaline Phosphatase 285 U/L (35-104) H C-Reactive Protein, Quantitative 33.0 mg/dL (< 0.5) H Pro-B-Type Natriuretic Peptide 2944 pg/mL (0-125) H Total Protein 5.0 g/dL (6.6-8.7) L Albumin 2.4 g/dL (3.5-5.2) L Globulin 2.6 g/dL Albumin/Globulin Ratio 0.9 (1.0-2.7) L Thyroid Stimulating Hormone (TSH) 2.100 uIU/mL (0.300-4.500) Arterial Blood pH 7.451 (7.350-7.450) Arterial Blood Partial Pressure CO2 42.3 mmHg (35.0-45.0) Arterial Blood Partial Pressure O2 67.6 mmHg (75.0-100.0) L Arterial Blood HCO3 28.8 mmol/L (22.0-26.0) H Arterial Blood Oxygen Saturation 93.0 % (92.0-98.0) Arterial Blood Base Excess 4.4 Jeffry Test Positive NIXON CHEATHAM Jun 26, 2017 10:34
[2017-06-26] MEDS: Morphine Sulfate 4mg/ml Inj IVP PRN ×2 (11:02→20:37)
--- NOTE | 2017-06-26 11:12 | General Progress Note ---
Assessment/Plan Status: unchanged Status Narrative low BP Assessment/Plan Respiratory failure Additional Impressions: Pulmonary edema Pleural effusion Sepsis with Shock Hypotension Anemia Lactic acid acidosis Low albumin and proteinuria EjFx 45% : Global left ventricular hypokinesis. change IV to D5 24 H Urine Proteins midodrine Calcium IV IV digoxin Per orders Subjective ROS Limited/Unobtainable: Yes Allergies: Coded Allergies: No Known Allergies (Unverified , 06/24/17) Objective Last 24 Hour Vital Signs Date Time Temp Pulse Resp B/P (MAP) Pulse Ox O2 Delivery O2 Flow Rate FiO2 06/26/17 10:59 115 17 108/64 97 Mechanical Ventilator 60 06/26/17 10:37 115 16 75 06/26/17 10:30 113 17 101/69 97 Mechanical Ventilator 60 06/26/17 10:00 112 18 102/64 97 Mechanical Ventilator 60 06/26/17 09:30 118 17 96/58 97 Mechanical Ventilator 60 06/26/17 09:00 110 17 108/66 97 Mechanical Ventilator 60 06/26/17 09:00 65/36 06/26/17 08:44 124 26 75 06/26/17 08:30 107 17 61/43 96 Mechanical Ventilator 60 06/26/17 08:00 110 06/26/17 08:00 92/40 06/26/17 08:00 60 06/26/17 08:00 98.2 112 17 94/60 96 Mechanical Ventilator 60 06/26/17 07:30 108 16 95/58 97 Mechanical Ventilator 60 06/26/17 07:00 108 17 97/72 96 Mechanical Ventilator 60 06/26/17 06:53 110 23 75 06/26/17 06:45 109 16 90/57 96 Mechanical Ventilator 60 06/26/17 06:30 109 16 102/65 94 Mechanical Ventilator 60 06/26/17 06:15 108 16 89/58 91 Mechanical Ventilator 60 06/26/17 06:00 108 16 96/57 92 Mechanical Ventilator 60 06/26/17 05:45 108 17 92/61 93 Mechanical Ventilator 60 06/26/17 05:30 108 17 92/61 93 Mechanical Ventilator 60 06/26/17 05:24 112 17 75 06/26/17 05:15 113 17 96/65 95 Mechanical Ventilator 60 06/26/17 05:00 108 18 96/65 97 Mechanical Ventilator 60 06/26/17 04:45 106 16 95/64 97 Mechanical Ventilator 60 06/26/17 04:30 106 16 97/61 96 Mechanical Ventilator 60 06/26/17 04:15 106 16 96/63 97 Mechanical Ventilator 60 06/26/17 04:00 107 06/26/17 04:00 99.8 107 16 97/65 96 Mechanical Ventilator 60 06/26/17 04:00 60 06/26/17 03:45 105 16 98/68 96 Mechanical Ventilator 60 06/26/17 03:30 106 16 95/66 96 Mechanical Ventilator 60 06/26/17 03:16 106 17 75 06/26/17 03:15 108 16 94/62 97 Mechanical Ventilator 60 06/26/17 03:00 106 16 103/70 97 Mechanical Ventilator 60 06/26/17 02:45 104 16 113/78 97 Mechanical Ventilator 60 06/26/17 02:30 107 16 120/74 96 Mechanical Ventilator 60 06/26/17 02:00 106 16 116/80 96 Mechanical Ventilator 60 06/26/17 01:45 106 16 107/66 96 Mechanical Ventilator 60 06/26/17 01:30 106 16 109/73 96 Mechanical Ventilator 60 06/26/17 01:10 102 16 75 06/26/17 01:00 106 16 105/76 97 Mechanical Ventilator 60 06/26/17 00:45 105 16 107/73 97 Mechanical Ventilator 60 06/26/17 00:30 108 16 99/70 97 Mechanical Ventilator 60 06/26/17 00:25 110/74 06/26/17 00:15 109 16 102/74 97 Mechanical Ventilator 60 06/26/17 00:00 99.2 102 16 110/74 97 Mechanical Ventilator 60 06/26/17 00:00 102 06/26/17 00:00 60 06/25/17 23:30 103 16 75 06/25/17 23:30 101 16 114/67 97 Mechanical Ventilator 60 06/25/17 23:15 100 16 106/62 97 Mechanical Ventilator 60 06/25/17 23:00 100 16 99/63 97 Mechanical Ventilator 60 06/25/17 22:30 99.2 06/25/17 21:30 116 16 75 06/25/17 21:30 105 16 100/63 97 Mechanical Ventilator 60 06/25/17 21:15 108 16 102/65 97 Mechanical Ventilator 60 06/25/17 21:00 106 16 101/56 97 Mechanical Ventilator 60 06/25/17 20:45 113 16 104/45 97 Mechanical Ventilator 60 06/25/17 20:30 108 17 117/72 97 Mechanical Ventilator 60 06/25/17 20:15 110 17 105/66 97 Mechanical Ventilator 60 06/25/17 20:00 60 06/25/17 20:00 99.6 111 16 109/66 93 Mechanical Ventilator 60 06/25/17 20:00 109 06/25/17 19:45 111 16 112/67 93 Mechanical Ventilator 60 06/25/17 19:30 109 16 120/78 93 Mechanical Ventilator 60 06/25/17 19:30 115 16 75 06/25/17 19:15 111 16 102/64 93 Mechanical Ventilator 60 06/25/17 19:00 113 16 97/64 94 Mechanical Ventilator 60 06/25/17 18:45 112 16 110/64 94 Mechanical Ventilator 60 06/25/17 18:28 113 16 110/66 93 Mechanical Ventilator 60 06/25/17 18:00 100.3 117 16 118/69 93 Mechanical Ventilator 60 06/25/17 17:30 114 16 97/75 93 Mechanical Ventilator 60 06/25/17 17:00 112 16 101/65 94 Mechanical Ventilator 60 06/25/17 16:45 114 16 98/68 94 Mechanical Ventilator 60 06/25/17 16:42 118 16 60 06/25/17 16:30 118 16 100/67 94 Mechanical Ventilator 60 06/25/17 16:03 60 06/25/17 16:02 125 06/25/17 16:00 99.8 123 16 101/61 93 Mechanical Ventilator 60 06/25/17 15:45 125 16 111/64 94 Mechanical Ventilator 60 06/25/17 15:30 118 16 122/97 96 Mechanical Ventilator 60 06/25/17 15:15 119 16 99/65 96 Mechanical Ventilator 60 06/25/17 15:15 119 16 60 06/25/17 15:00 118 16 102/73 97 Mechanical Ventilator 60 06/25/17 14:30 123 16 115/66 97 Mechanical Ventilator 60 06/25/17 14:30 115/66 06/25/17 14:00 119 16 110/63 97 Mechanical Ventilator 60 06/25/17 13:15 119 16 102/62 96 Mechanical Ventilator 60 06/25/17 13:00 123 16 106/62 96 Mechanical Ventilator 60 06/25/17 13:00 102/62 06/25/17 12:58 100.1 06/25/17 12:45 123 16 106/60 96 Mechanical Ventilator 60 06/25/17 12:41 122 16 60 06/25/17 12:30 126 16 95/61 95 Mechanical Ventilator 60 06/25/17 12:15 125 16 109/64 95 Mechanical Ventilator 60 06/25/17 12:02 130 06/25/17 12:00 60 06/25/17 11:59 100.4 129 18 122/71 94 Mechanical Ventilator 60 06/25/17 11:45 114/78 06/25/17 11:30 130 19 122/76 95 Mechanical Ventilator 60 Intake and Output 06/26/17 06/27/17 19:00 07:00 Intake Total 280.48 ml Output Total 70 ml Balance 210.48 ml IV Total 280.48 ml Output Urine Total 70 ml Laboratory Tests 06/25/17 12:15: Uric Acid 4.9, Iron Level 19L, Total Iron Binding Capacity 74L, Percent Iron Saturation 26, Unsaturated Iron Binding 55L, Ferritin 4320H, Folate [Pending], Random Amikacin Level 7.6 06/26/17 05:00: White Blood Count 22.8*H, Red Blood Count 3.19L, Hemoglobin 9.0L, Hematocrit 28.8L, Mean Corpuscular Volume 90, Mean Corpuscular Hemoglobin 28.3, Mean Corpuscular Hemoglobin Concent 31.4L, Red Cell Distribution Width 17.9H, Platelet Count 421, Mean Platelet Volume 6.2L, Neutrophils (%) (Auto) , Lymphocytes (%) (Auto) , Monocytes (%) (Auto) , Eosinophils (%) (Auto) , Basophils (%) (Auto) , Differential Total Cells Counted 100, Neutrophils % ( Manual) 89H, Lymphocytes % (Manual) 3L, Monocytes % (Manual) 4, Eosinophils % ( Manual) 0, Basophils % (Manual) 0, Band Neutrophils 4, Nucleated Red Blood Cells 1, Platelet Estimate IncreasedH, Platelet Morphology Normal, Hypochromasia 1+, Anisocytosis 1+, Stomatocytes 1+, Blister Cells 1+, Schistocytes 1+, Sodium Level 151H, Potassium Level 3.3L, Chloride Level 109H, Carbon Dioxide Level 29, Anion Gap 13, Blood Urea Nitrogen 21, Creatinine 0.5, Estimat Glomerular Filtration Rate > 60, Glucose Level 151H, Calcium Level 6.9L , Phosphorus Level 2.9, Magnesium Level 1.7, Total Bilirubin 0.3, Aspartate Amino Transf (AST/SGOT) 389H, Alanine Aminotransferase (ALT/SGPT) 91H, Alkaline Phosphatase 285H, C-Reactive Protein, Quantitative 33.0H, Pro-B-Type Natriuretic Peptide 2944H, Total Protein 5.0L, Albumin 2.4L, Globulin 2.6, Albumin/Globulin Ratio 0.9L, Thyroid Stimulating Hormone (TSH) 2.100 06/26/17 09:05: Arterial Blood pH 7.451H, Arterial Blood Partial Pressure CO2 42.3, Arterial Blood Partial Pressure O2 67.6L, Arterial Blood HCO3 28.8H, Arterial Blood Oxygen Saturation 93.0, Arterial Blood Base Excess 4.4, Jeffry Test Positive 06/26/17 10:45: Vitamin B12 Level [Pending] Height (Feet): 5 Height (Inches): 4.00 Weight (Pounds): 130 EENT: other - intubated on vent Cardiovascular: tachycardia Respiratory/Chest: decreased breath sounds Abdomen: soft TIARRA HOWARD Jun 26, 2017 11:12
[2017-06-26] MEDS ORDERED: Digoxin 0.5mg/2ml Inj IVP ONE (11:15)
--- NOTE | 2017-06-26 11:28 | Diagnostic Imaging Report ---
Indication: DYSPNEA Technique: One view of the chest Comparison: 06/25/2017 Findings: Again demonstrated are bilateral left greater than right pleural effusions, and extensive interstitial and alveolar edema versus infiltrates. Stable satisfactory positions of endotracheal and nasogastric tubes and left arm PICC. The heart size is normal. When compared to the prior study, the amount of pleural fluid appears slightly increased on the left. Parenchymal consolidation is equivocally slightly less dense Impression:
--- NOTE | 2017-06-26 12:41 | Consultation ---
DATE OF CONSULTATION: INFECTIOUS DISEASES CONSULTATION CONSULTING PHYSICIAN: Toy Thomas M.D. REFERRING PHYSICIAN: Qamar Christie M.D. Reason For Consultation: Evaluation of the patient for fever, pneumonia, sepsis, and antibiotic management. History of Present Illness: The patient is a 56-year-old unfortunate female with multiple medical problems as listed below who was admitted to this medical center due to shortness of breath. The patient with a history of what sounds like maybe cancer and the patient was released from hospital three days ago. According to family at the bedside, the patient did not have any cough or respiratory symptoms. However, the patient is in respiratory distress today, was brought to the hospital. The patient had to be intubated and has been admitted to the ICU. The patient has been started on pressors. An infectious Disease consultation has been requested for further evaluation of the patient and antibiotic management. PAST MEDICAL HISTORY: 1. Hypertension. 2. cancer. 3. stomach cancer. 4. History of diabetes. 5. History of metastasis to the liver. MEDICATIONS: IV vancomycin, ertapenem, and amikacin. ALLERGIES: No known drug allergies. SOCIAL HISTORY: The patient lives at home. FAMILY HISTORY: Unavailable. REVIEW OF SYSTEMS: Unobtainable. PHYSICAL EXAMINATION: Vital Signs: Temperature 99.6 degrees, blood pressure 109/60, pulse 110, and respiratory rate 18. HEENT: Mild pale conjunctivae. No icterus. NECK: No lymphadenopathy. CHEST: Coarse breathing sounds. HEART: S1 and S2. ABDOMEN: Soft. Mildly distended. Nontender. EXTREMITIES: No cyanosis at this time. NEUROLOGIC: Awake. Laboratory Data: White blood cells 20, hemoglobin 9.2, and platelets 468,000. UA unremarkable. BUN 33 and creatinine 0.6. ALT and AST unremarkable. Alkaline phosphatase 289. Urine culture is pending. Blood culture is pending. Sputum culture is pending. Chest x-ray, atelectasis of the left lower lobe, left pleural effusion, interstitial edema. Assessment: The patient is a 56-year-old female with multiple medical problems as listed above, who has: 1. Sepsis. 2. Septic shock. 3. Leukocytosis. 4. Possible healthcare-associated pneumonia. PLAN: 1. We will continue the patient on IV ertapenem, Amikacin, and vancomycin. 2. Monitor CBC. 3. Monitor BMP. 4. Monitor cultures (sputum, urine, blood). 5. We will continue the patient on vent support. 6. We will continue the patient on pressor. 7. Monitor chest x-ray. 8. Based on the patient's clinical course and labs, we will do further recommendations. Thank you, Dr. Christie, for allowing me to participate in the care of this patient. I will follow the patient with you during this hospitalization. Toy Thomas M.D. DR: Taylor JOB#: [id number] CC:
[2017-06-26 13:01] LABS: TROPONIN I < 0.30 ng/mL (<=0.30)
[2017-06-26] MEDS ORDERED: Calcium Gluconate 1gm/10ml vial ONE (13:02)
[2017-06-26] MEDS: Calcium Gluconate 10% 1 GM in NS 110 ML IVPB SCH ×2 (13:56→22:10)
[2017-06-26 15:20] LABS: TOTAL PROTEIN 24HR URINE 502.5 mg/24hr (< 150)
--- NOTE | 2017-06-26 18:43 | Infectious Diseases Prog Note ---
Assessment/Plan Assessment/Plan Assessment: The patient is a 56-year-old female with Fungemia Sepsis Septic shock. Leukocytosis. Possible healthcare-associated pneumonia. Hypertension. Metastatic cancer. History of diabetes. Metastasis to the liver PLAN: continue the patient on IV ertapenem, , and vancomycin # 2 add IV Mycamine d# 1 Monitor CBC Monitor BMP. Monitor cultures (sputum, urine, blood). We will continue the patient on vent support. We will continue the patient on pressor. Monitor chest x-ray. Subjective Constitutional: Denies: no symptoms, fever, chills, fatigue, anorexia, drenching sweats, other Allergies: Coded Allergies: No Known Allergies (Unverified , 06/24/17) Objective Vital Signs Last 24 Hour Vital Signs Date Time Temp Pulse Resp B/P (MAP) Pulse Ox O2 Delivery O2 Flow Rate FiO2 06/26/17 18:29 97 16 94/53 96 Mechanical Ventilator 75 06/26/17 18:10 98/60 06/26/17 18:00 106 16 99/61 94 Mechanical Ventilator 75 06/26/17 17:30 97 16 101/59 95 Mechanical Ventilator 75 06/26/17 17:04 102 16 75 06/26/17 17:00 98/60 06/26/17 17:00 98.7 98 16 99/57 96 Mechanical Ventilator 75 06/26/17 16:30 103 16 98/50 96 Mechanical Ventilator 75 06/26/17 16:03 60 06/26/17 16:02 96 06/26/17 16:00 100/52 06/26/17 15:55 103 16 98/50 96 Mechanical Ventilator 60 06/26/17 15:30 106 16 100/59 93 Mechanical Ventilator 60 06/26/17 15:19 108 16 75 06/26/17 15:00 98/50 06/26/17 15:00 99 16 122/69 93 Mechanical Ventilator 60 06/26/17 14:30 100 16 104/62 95 Mechanical Ventilator 60 06/26/17 14:00 100 16 104/59 95 Mechanical Ventilator 60 06/26/17 14:00 110/52 06/26/17 13:30 100 16 106/65 95 Mechanical Ventilator 60 06/26/17 13:08 110 16 75 06/26/17 13:00 103 16 108/71 94 Mechanical Ventilator 60 06/26/17 12:57 98.5 9/13/17 12:30 97 16 102/66 97 Mechanical Ventilator 60 06/26/17 12:00 104 06/26/17 12:00 98.4 93 18 107/64 96 Mechanical Ventilator 60 06/26/17 12:00 60 06/26/17 11:30 104 17 101/64 97 Mechanical Ventilator 60 06/26/17 11:15 111 06/26/17 10:59 115 17 108/64 97 Mechanical Ventilator 60 06/26/17 10:37 115 16 75 06/26/17 10:30 113 17 101/69 97 Mechanical Ventilator 60 06/26/17 10:00 112 18 102/64 97 Mechanical Ventilator 60 06/26/17 09:30 118 17 96/58 97 Mechanical Ventilator 60 06/26/17 09:00 110 17 108/66 97 Mechanical Ventilator 60 06/26/17 09:00 65/36 06/26/17 08:44 124 26 75 06/26/17 08:30 107 17 61/43 96 Mechanical Ventilator 60 06/26/17 08:00 110 06/26/17 08:00 92/40 06/26/17 08:00 60 06/26/17 08:00 98.2 112 17 94/60 96 Mechanical Ventilator 60 06/26/17 07:30 108 16 95/58 97 Mechanical Ventilator 60 06/26/17 07:00 108 17 97/72 96 Mechanical Ventilator 60 06/26/17 06:53 110 23 75 06/26/17 06:45 109 16 90/57 96 Mechanical Ventilator 60 06/26/17 06:30 109 16 102/65 94 Mechanical Ventilator 60 06/26/17 06:15 108 16 89/58 91 Mechanical Ventilator 60 06/26/17 06:00 108 16 96/57 92 Mechanical Ventilator 60 06/26/17 05:45 108 17 92/61 93 Mechanical Ventilator 60 06/26/17 05:30 108 17 92/61 93 Mechanical Ventilator 60 06/26/17 05:24 112 17 75 06/26/17 05:15 113 17 96/65 95 Mechanical Ventilator 60 06/26/17 05:00 108 18 96/65 97 Mechanical Ventilator 60 06/26/17 04:45 106 16 95/64 97 Mechanical Ventilator 60 06/26/17 04:30 106 16 97/61 96 Mechanical Ventilator 60 06/26/17 04:15 106 16 96/63 97 Mechanical Ventilator 60 06/26/17 04:00 107 06/26/17 04:00 99.8 107 16 97/65 96 Mechanical Ventilator 60 06/26/17 04:00 60 06/26/17 03:45 105 16 98/68 96 Mechanical Ventilator 60 06/26/17 03:30 106 16 95/66 96 Mechanical Ventilator 60 06/26/17 03:16 106 17 75 06/26/17 03:15 108 16 94/62 97 Mechanical Ventilator 60 06/26/17 03:00 106 16 103/70 97 Mechanical Ventilator 60 06/26/17 02:45 104 16 113/78 97 Mechanical Ventilator 60 06/26/17 02:30 107 16 120/74 96 Mechanical Ventilator 60 06/26/17 02:00 106 16 116/80 96 Mechanical Ventilator 60 06/26/17 01:45 106 16 107/66 96 Mechanical Ventilator 60 06/26/17 01:30 106 16 109/73 96 Mechanical Ventilator 60 06/26/17 01:10 102 16 75 06/26/17 01:00 106 16 105/76 97 Mechanical Ventilator 60 06/26/17 00:45 105 16 107/73 97 Mechanical Ventilator 60 06/26/17 00:30 108 16 99/70 97 Mechanical Ventilator 60 06/26/17 00:25 110/74 06/26/17 00:15 109 16 102/74 97 Mechanical Ventilator 60 06/26/17 00:00 99.2 102 16 110/74 97 Mechanical Ventilator 60 06/26/17 00:00 102 06/26/17 00:00 60 06/25/17 23:30 103 16 75 06/25/17 23:30 101 16 114/67 97 Mechanical Ventilator 60 06/25/17 23:15 100 16 106/62 97 Mechanical Ventilator 60 06/25/17 23:00 100 16 99/63 97 Mechanical Ventilator 60 06/25/17 21:30 116 16 75 06/25/17 21:30 105 16 100/63 97 Mechanical Ventilator 60 06/25/17 21:15 108 16 102/65 97 Mechanical Ventilator 60 06/25/17 21:00 106 16 101/56 97 Mechanical Ventilator 60 06/25/17 20:45 113 16 104/45 97 Mechanical Ventilator 60 06/25/17 20:30 108 17 117/72 97 Mechanical Ventilator 60 06/25/17 20:15 110 17 105/66 97 Mechanical Ventilator 60 06/25/17 20:00 60 06/25/17 20:00 99.6 111 16 109/66 93 Mechanical Ventilator 60 06/25/17 20:00 109 06/25/17 19:45 111 16 112/67 93 Mechanical Ventilator 60 06/25/17 19:30 109 16 120/78 93 Mechanical Ventilator 60 06/25/17 19:30 115 16 75 06/25/17 19:15 111 16 102/64 93 Mechanical Ventilator 60 06/25/17 19:00 113 16 97/64 94 Mechanical Ventilator 60 06/25/17 18:45 112 16 110/64 94 Mechanical Ventilator 60 Height (Feet): 5 Height (Inches): 4.00 Weight (Pounds): 130 HEENT: anicteric Respiratory/Chest: no respiratory distress Cardiovascular: regular rhythm Abdomen: non distended Microbiology Date/Time Source Procedure Growth Status 06/24/17 18:30 Blood Blood Culture - Preliminary Resulted 06/24/17 17:00 Blood Blood Culture - Preliminary NO GROWTH AFTER 24 HOURS Resulted 06/25/17 10:50 Sputum Gram Stain - Final Resulted 06/25/17 10:50 Sputum Sputum Culture Pending Resulted 06/24/17 19:29 Urine,Clean Catch Urine Culture - Preliminary NO GROWTH AFTER 24 HOURS Resulted Laboratory Tests Test 06/26/17 05:00 06/26/17 09:05 06/26/17 10:45 06/26/17 17:25 White Blood Count 22.8 K/UL (4.8-10.8) *H Red Blood Count 3.19 M/UL (4.20-5.40) L Hemoglobin 9.0 G/DL (12.0-16.0) L Hematocrit 28.8 % (37.0-47.0) L Mean Corpuscular Volume 90 FL (80-99) Mean Corpuscular Hemoglobin 28.3 PG (27.0-31.0) Mean Corpuscular Hemoglobin Concent 31.4 G/DL (32.0-36.0) L Red Cell Distribution Width 17.9 % (11.6-14.8) H Platelet Count 421 K/UL (150-450) Mean Platelet Volume 6.2 FL (6.5-10.1) L Neutrophils (%) (Auto) % (45.0-75.0) Lymphocytes (%) (Auto) % (20.0-45.0) Monocytes (%) (Auto) % (1.0-10.0) Eosinophils (%) (Auto) % (0.0-3.0) Basophils (%) (Auto) % (0.0-2.0) Differential Total Cells Counted 100 Neutrophils % (Manual) 89 % (45-75) H Lymphocytes % (Manual) 3 % (20-45) L Monocytes % (Manual) 4 % (1-10) Eosinophils % (Manual) 0 % (0-3) Basophils % (Manual) 0 % (0-2) Band Neutrophils 4 % (0-8) Nucleated Red Blood Cells 1 /100 WBC Platelet Estimate Increased H Platelet Morphology Normal Hypochromasia 1+ Anisocytosis 1+ Stomatocytes 1+ Blister Cells 1+ Schistocytes 1+ Sodium Level 151 mEQ/L (135-145) H Potassium Level 3.3 mEQ/L (3.4-4.9) L Chloride Level 109 mEQ/L (98-107) H Carbon Dioxide Level 29 mEQ/L (20-30) Anion Gap 13 (5-15) Blood Urea Nitrogen 21 mg/dL (7-23) Creatinine 0.5 mg/dL (0.5-0.9) Estimat Glomerular Filtration Rate > 60 mL/min (>60) Glucose Level 151 mg/dL (74-106) H Calcium Level 6.9 mg/dL (8.6-10.2) L Phosphorus Level 2.9 mg/dL (2.5-4.8) Magnesium Level 1.7 mg/dL (1.7-2.5) Total Bilirubin 0.3 mg/dL (0.0-1.2) Aspartate Amino Transf (AST/SGOT) 389 U/L (5-40) H Alanine Aminotransferase (ALT/SGPT) 91 U/L (3-33) H Alkaline Phosphatase 285 U/L (35-104) H Troponin I < 0.30 ng/mL (<=0.30) C-Reactive Protein, Quantitative 33.0 mg/dL (< 0.5) H Pro-B-Type Natriuretic Peptide 2944 pg/mL (0-125) H Total Protein 5.0 g/dL (6.6-8.7) L Albumin 2.4 g/dL (3.5-5.2) L Globulin 2.6 g/dL Albumin/Globulin Ratio 0.9 (1.0-2.7) L Thyroid Stimulating Hormone (TSH) 2.100 uIU/mL (0.300-4.500) Arterial Blood pH 7.451 (7.350-7.450) Arterial Blood Partial Pressure CO2 42.3 mmHg (35.0-45.0) Arterial Blood Partial Pressure O2 67.6 mmHg (75.0-100.0) L Arterial Blood HCO3 28.8 mmol/L (22.0-26.0) H Arterial Blood Oxygen Saturation 93.0 % (92.0-98.0) Arterial Blood Base Excess 4.4 Jeffry Test Positive Vitamin B12 Level > 2000 pg/mL (211-946) H Vancomycin Level Trough 15.4 ug/mL (5.0-12.0) H Current Medications Medications (Trade) Dose Ordered Sig/Kwabena Route PRN Reason Start Time Stop Time Status Last Admin Dose Admin Acetaminophen (Tylenol) 650 mg Q4H PRN ORAL fever 06/24/17 21:30 07/24/17 21:29 06/25/17 11:59 Albuterol/ Ipratropium (DuoNeb 0.5-3(2.5)mg/3ml) 3 ml Q4H PRN HHN Shortness of Breath 06/24/17 21:30 06/29/17 21:29 Amikacin Protocol (Amikacin pharmacy to dose) 1 ea DAILY PRN MISC Per rx protocol 06/24/17 22:00 07/24/17 21:59 Amikacin Sulfate 800 mg/Sodium Chloride 113.2 ml @ 113.2 mls/ hr Q24H IV 06/25/17 00:00 07/02/17 00:00 06/26/17 00:33 Calcium Gluconate 1 gm/Sodium Chloride 120 ml @ 240 mls/hr Q8HR IVPB 06/26/17 14:00 07/26/17 13:59 06/26/17 13:56 Chlorhexidine Gluconate (Angelique-Hex 2%) 1 applic DAILY TOPIC 06/25/17 21:00 07/25/17 20:59 06/26/17 08:34 Dextrose 1,000 ml @ 50 mls/hr Q20H IV 06/26/17 11:30 07/26/17 11:29 06/26/17 11:30 Ertapenem 1 gm/ Sodium Chloride 55 ml @ 110 mls/hr Q24H IV 06/25/17 02:00 06/30/17 01:59 06/26/17 01:56 Heparin Sodium (Porcine) (Heparin 5000 units/ml) 5,000 units EVERY 12 HOURS SUBQ 06/25/17 09:00 07/25/17 08:59 06/26/17 08:39 Lorazepam (Ativan 2mg/ml 1ml) 2 mg Q2H PRN IV For Anxiety 06/24/17 21:30 07/01/17 21:29 Midodrine (Pro-Amatine) 10 mg THREE TIMES A DAY NG 06/26/17 10:15 07/26/17 10:14 06/26/17 18:09 Morphine Sulfate (Morphine Sulfate) 4 mg Q4H PRN IVP Severe Pain (Pain Scale 7-10) 06/24/17 21:30 07/01/17 21:29 06/26/17 11:02 Norepinephrine Bitartrate 4 mg/ Dextrose 254 ml @ 0 mls/hr Q24H IV 06/24/17 22:00 07/24/17 21:59 06/26/17 18:10 Ondansetron HCl (Zofran) 4 mg Q6H PRN IVP Nausea & Vomiting 06/24/17 21:30 07/24/17 21:29 Pantoprazole (Protonix) 40 mg Q12HR IVP 06/25/17 21:00 07/25/17 20:59 06/26/17 08:33 Polyethylene Glycol (Miralax) 17 gm DAILYPRN PRN ORAL Constipation 06/24/17 21:30 07/24/17 21:29 Vancomycin HCl (Vanco rx to dose) 1 ea DAILY PRN MISC PRN RX PROTOCOL 06/24/17 22:00 07/24/17 21:59 Vancomycin/Sodium Chloride 250 ml @ 166.667 mls/hr Q12HR@0600,1800 IVPB 06/25/17 06:00 06/30/17 05:59 06/26/17 18:32 HENRIETTA FRANCIS M.D. Jun 26, 2017 18:43
[2017-06-26] MEDS: Micafungin 100 MG in NS 110 ML IVPB SCH (20:35)
[2017-06-27] VITALS (24 sets, daily range): BP systolic 84–106; BP diastolic 50–78
[2017-06-27] MEDS: Ertapenem 1 GM in NS 55 ML IV SCH (01:46)
[2017-06-27 05:33] LABS: MEAN CORPUSCULAR HEMOGLOBIN 29.1 PG (27.0-31.0); MEAN CORPUSCULAR HGB CONC 32.1 G/DL (32.0-36.0); MEAN CORPUSCULAR VOLUME 91 FL (80-99); MEAN PLATELET VOLUME 6.4 FL (6.5-10.1); PLATELET COUNT 349 K/UL (150-450); RED BLOOD COUNT 2.78 M/UL (4.20-5.40); RED CELL DISTRIBUTION WIDTH 18.3 % (11.6-14.8); WHITE BLOOD COUNT 19.1 K/UL (4.8-10.8)
[2017-06-27 05:36] LABS: ALANINE AMINOTRANSFERASE 71 U/L (3-33); ALBUMIN/GLOBULIN RATIO 0.8 (1.0-2.7); ASPARTATE AMINO TRANSFERASE 177 U/L (5-40); CALCIUM 7.4 mg/dL (8.6-10.2); CARBON DIOXIDE 29 mEQ/L (20-30); CHLORIDE 108 mEQ/L (98-107); CREATININE 0.5 mg/dL (0.5-0.9); GLOMERULAR FILTRATION RATE > 60 mL/min (>60); HEMOLYSIS 1; MAGNESIUM 1.5 mg/dL (1.7-2.5); PHOSPHORUS 1.7 mg/dL (2.5-4.8); SODIUM 148 mEQ/L (135-145); TOTAL PROTEIN 5.2 g/dL (6.6-8.7)
[2017-06-27 05:46] LABS: ANION GAP 11 (5-15); POTASSIUM 3.6 mEQ/L (3.4-4.9)
[2017-06-27] MEDS: Vancomycin 750mg/NS 250ml 250 ML IVPB SCH ×2 (06:34→17:50)
[2017-06-27] MEDS: Calcium Gluconate 10% 1 GM in NS 110 ML IVPB SCH ×3 (06:34→21:44)
[2017-06-27] MEDS: Heparin 5000 units/ml inj SUBQ SCH ×2 (07:34→20:45)
[2017-06-27] MEDS: Dyna-Hex 2% Top Sol 8oz TOPIC SCH ×2 (08:12→20:44)
[2017-06-27] MEDS: Midodrine 10mg tab NG SCH ×3 (08:12→17:49)
[2017-06-27] MEDS: Pantoprazole Inj IVP SCH ×2 (08:13→20:44)
[2017-06-27] MEDS ORDERED: Potassium Phosphate 30 MM in NS 275 ML IV ONE ×2 (08:30→09:30)
[2017-06-27 09:41] LABS: ANISOCYTOSIS 1+; BAND NEUTROPHILS % (MANUAL) 0 % (0-8); BASOPHILS % (MANUAL) 0 % (0-2); EOSINOPHILS % (MANUAL) 1 % (0-3); LYMPHOCYTES % (MANUAL) 4 % (20-45); NEUTROPHILS % (MANUAL) 94 % (45-75); PLATELET ESTIMATE ADEQUATE; PLATELET MORPHOLOGY NORMAL; TOTAL CELLS COUNTED 100
[2017-06-27 09:42] LABS: SCHISTOCYTES 1+
--- NOTE | 2017-06-27 09:54 | General Progress Note ---
Assessment/Plan Status: unchanged Assessment/Plan Respiratory failure Additional Impressions: Pulmonary edema Pleural effusion Sepsis with Shock Hypotension Anemia Lactic acid acidosis Low albumin and proteinuria EjFx 45% : Global left ventricular hypokinesis. change IV to D5 24 H Urine Proteins Pending midodrine Calcium IV IV digoxin Per orders Subjective ROS Limited/Unobtainable: Yes Allergies: Coded Allergies: No Known Allergies (Unverified , 06/24/17) Objective Last 24 Hour Vital Signs Date Time Temp Pulse Resp B/P (MAP) Pulse Ox O2 Delivery O2 Flow Rate FiO2 06/27/17 08:55 107 18 90 06/27/17 08:00 90 06/27/17 08:00 104 06/27/17 08:00 100.8 98 18 93/64 98 Mechanical Ventilator 90 06/27/17 07:14 97 21 90 06/27/17 07:00 108 16 95/61 97 Mechanical Ventilator 80 06/27/17 06:00 105 16 106/62 98 Mechanical Ventilator 80 06/27/17 05:26 102 16 90 06/27/17 05:00 104 17 90/53 96 Mechanical Ventilator 80 06/27/17 04:00 80 06/27/17 04:00 99.3 105 17 90/58 93 Mechanical Ventilator 80 06/27/17 04:00 105 06/27/17 03:25 103 16 80 06/27/17 03:00 96 18 102/59 94 Mechanical Ventilator 80 06/27/17 02:00 103 16 89/59 93 Mechanical Ventilator 80 06/27/17 01:28 106 16 80 06/27/17 01:00 95 18 86/50 95 Mechanical Ventilator 80 06/27/17 00:00 111 06/27/17 00:00 98.9 111 18 90/58 92 Mechanical Ventilator 80 06/27/17 00:00 80 06/26/17 23:18 104 16 80 06/26/17 23:00 128 18 92/51 92 Mechanical Ventilator 80 06/26/17 22:00 109 16 107/64 94 Mechanical Ventilator 80 06/26/17 21:45 103 16 95/58 95 Mechanical Ventilator 80 06/26/17 21:15 104 16 88/49 95 Mechanical Ventilator 80 06/26/17 21:11 99.0 06/26/17 21:07 106 16 80 06/26/17 21:00 104 16 85/50 95 Mechanical Ventilator 80 06/26/17 20:30 106 16 95/57 92 Mechanical Ventilator 80 06/26/17 20:00 106 06/26/17 20:00 106 16 96/61 94 Mechanical Ventilator 75 06/26/17 20:00 80 06/26/17 19:30 99.6 97 16 100/63 94 Mechanical Ventilator 75 06/26/17 19:29 96 16 75 17 19:00 97 16 96/61 96 Mechanical Ventilator 75 06/26/17 18:29 97 16 94/53 96 Mechanical Ventilator 75 06/26/17 18:10 98/60 06/26/17 18:00 106 16 99/61 94 Mechanical Ventilator 75 17 17:30 97 16 101/59 95 Mechanical Ventilator 75 06/26/17 17:04 102 16 75 06/26/17 17:00 98/60 06/26/17 17:00 98.7 98 16 99/57 96 Mechanical Ventilator 75 06/26/17 16:30 103 16 98/50 96 Mechanical Ventilator 75 06/26/17 16:03 60 06/26/17 16:02 96 06/26/17 16:00 100/52 06/26/17 15:55 103 16 98/50 96 Mechanical Ventilator 60 06/26/17 15:30 106 16 100/59 93 Mechanical Ventilator 60 06/26/17 15:19 108 16 75 06/26/17 15:00 98/50 06/26/17 15:00 99 16 122/69 93 Mechanical Ventilator 60 06/26/17 14:30 100 16 104/62 95 Mechanical Ventilator 60 06/26/17 14:00 100 16 104/59 95 Mechanical Ventilator 60 06/26/17 14:00 110/52 06/26/17 13:30 100 16 106/65 95 Mechanical Ventilator 60 06/26/17 13:08 110 16 75 06/26/17 13:00 103 16 108/71 94 Mechanical Ventilator 60 06/26/17 12:30 97 16 102/66 97 Mechanical Ventilator 60 06/26/17 12:00 104 06/26/17 12:00 98.4 93 18 107/64 96 Mechanical Ventilator 60 06/26/17 12:00 60 06/26/17 11:30 104 17 101/64 97 Mechanical Ventilator 60 06/26/17 11:15 111 06/26/17 10:59 115 17 108/64 97 Mechanical Ventilator 60 06/26/17 10:37 115 16 75 06/26/17 10:30 113 17 101/69 97 Mechanical Ventilator 60 06/26/17 10:00 112 18 102/64 97 Mechanical Ventilator 60 Intake and Output 06/27/17 06/28/17 19:00 07:00 Output Total 20 ml Balance -20 ml Output Urine Total 20 ml Laboratory Tests 06/26/17 10:45: Vitamin B12 Level > 2000H 06/26/17 17:25: Vancomycin Level Trough 15.4H 06/27/17 04:30: White Blood Count 19.1H, Red Blood Count 2.78L, Hemoglobin 8.1L, Hematocrit 25.2L, Mean Corpuscular Volume 91, Mean Corpuscular Hemoglobin 29.1, Mean Corpuscular Hemoglobin Concent 32.1, Red Cell Distribution Width 18.3H, Platelet Count 349, Mean Platelet Volume 6.4L, Neutrophils (%) (Auto) , Lymphocytes (%) (Auto) , Monocytes (%) (Auto) , Eosinophils (%) (Auto) , Basophils (%) (Auto) , Differential Total Cells Counted 100, Neutrophils % ( Manual) 94H, Lymphocytes % (Manual) 4L, Monocytes % (Manual) 1, Eosinophils % ( Manual) 1, Basophils % (Manual) 0, Band Neutrophils 0, Platelet Estimate Adequate, Platelet Morphology Normal, Anisocytosis 1+, Schistocytes 1+, Sodium Level 148H, Potassium Level 3.6, Chloride Level 108H, Carbon Dioxide Level 29, Anion Gap 11, Blood Urea Nitrogen 17, Creatinine 0.5, Estimat Glomerular Filtration Rate > 60, Glucose Level 155H, Calcium Level 7.4L, Phosphorus Level 1.7L, Magnesium Level 1.5L, Total Bilirubin 0.4, Aspartate Amino Transf (AST/ SGOT) 177H, Alanine Aminotransferase (ALT/SGPT) 71H, Alkaline Phosphatase 367H, Total Protein 5.2L, Albumin 2.4L, Globulin 2.8, Albumin/Globulin Ratio 0.8L Height (Feet): 5 Height (Inches): 4.00 Weight (Pounds): 133 General Appearance: no apparent distress EENT: other - intubated on vent Cardiovascular: tachycardia Respiratory/Chest: decreased breath sounds TIARRA HOWARD Jun 27, 2017 09:54
[2017-06-27] MEDS ORDERED: Digoxin 0.5mg/2ml Inj IVP ONE (10:00)
[2017-06-27 10:16] LABS: ABG BASE EXCESS 0.6; ABG PCO2 38.9 mmHg (35.0-45.0)
[2017-06-27 10:17] LABS: ABG ALLEN TEST POSITIVE
--- NOTE | 2017-06-27 10:34 | Pulmonology Progress Note ---
Assessment/Plan Problems: (1) Respiratory failure (2) Septic shock (3) Hypotension (4) Metastatic adenocarcinoma (5) Anemia (6) Pleural effusion Respiratory: monitor respiratory rate, adjust FIO2, CXR Cardiac: continue to monitor HR/BP Renal: F/U I&O, keep IV fluid, check electrolytes Infectious Disease: check cultures Gastrointestinal: continue feedings/current rate, hold feedings Endocrine: check TSH, check HgA1C, continue sliding scale insulin Hematologic: transfuse if hgb<8.5 Neurologic: PRN Ativan, PRN Morphine, keep patient comfortable Affect: PRN ativan Notes Reviewed: renal Discussed with: nurses, consultants, case picker Subjective ROS Limited/Unobtainable: No Constitutional: Reports: no symptoms HEENT: Repors: no symptoms Allergies: Coded Allergies: No Known Allergies (Unverified , 06/24/17) Objective Last 24 Hour Vital Signs Date Time Temp Pulse Resp B/P (MAP) Pulse Ox O2 Delivery O2 Flow Rate FiO2 06/27/17 10:00 102 19 91/57 98 Mechanical Ventilator 90 06/27/17 09:12 99.0 06/27/17 09:00 99.0 96 20 91/56 98 Mechanical Ventilator 90 06/27/17 08:55 107 18 90 06/27/17 08:00 90 06/27/17 08:00 104 06/27/17 08:00 100.8 98 18 93/64 98 Mechanical Ventilator 90 06/27/17 07:14 97 21 90 06/27/17 07:00 108 16 95/61 97 Mechanical Ventilator 80 06/27/17 06:00 105 16 106/62 98 Mechanical Ventilator 80 06/27/17 05:26 102 16 90 06/27/17 05:00 104 17 90/53 96 Mechanical Ventilator 80 06/27/17 04:00 80 06/27/17 04:00 99.3 105 17 90/58 93 Mechanical Ventilator 80 06/27/17 04:00 105 06/27/17 03:25 103 16 80 06/27/17 03:00 96 18 102/59 94 Mechanical Ventilator 80 06/27/17 02:00 103 16 89/59 93 Mechanical Ventilator 80 06/27/17 01:28 106 16 80 06/27/17 01:00 95 18 86/50 95 Mechanical Ventilator 80 06/27/17 00:00 111 06/27/17 00:00 98.9 111 18 90/58 92 Mechanical Ventilator 80 06/27/17 00:00 80 06/26/17 23:18 104 16 80 06/26/17 23:00 128 18 92/51 92 Mechanical Ventilator 80 06/26/17 22:00 109 16 107/64 94 Mechanical Ventilator 80 06/26/17 21:45 103 16 95/58 95 Mechanical Ventilator 80 06/26/17 21:15 104 16 88/49 95 Mechanical Ventilator 80 06/26/17 21:11 99.0 06/26/17 21:07 106 16 80 06/26/17 21:00 104 16 85/50 95 Mechanical Ventilator 80 06/26/17 20:30 106 16 95/57 92 Mechanical Ventilator 80 06/26/17 20:00 106 06/26/17 20:00 106 16 96/61 94 Mechanical Ventilator 75 06/26/17 20:00 80 06/26/17 19:30 99.6 97 16 100/63 94 Mechanical Ventilator 75 06/26/17 19:29 96 16 75 06/26/17 19:00 97 16 96/61 96 Mechanical Ventilator 75 06/26/17 18:29 97 16 94/53 96 Mechanical Ventilator 75 06/26/17 18:10 98/60 06/26/17 18:00 106 16 99/61 94 Mechanical Ventilator 75 06/26/17 17:30 97 16 101/59 95 Mechanical Ventilator 75 06/26/17 17:04 102 16 75 06/26/17 17:00 98/60 06/26/17 17:00 98.7 98 16 99/57 96 Mechanical Ventilator 75 06/26/17 16:30 103 16 98/50 96 Mechanical Ventilator 75 06/26/17 16:03 60 06/26/17 16:02 96 06/26/17 16:00 100/52 06/26/17 15:55 103 16 98/50 96 Mechanical Ventilator 60 06/26/17 15:30 106 16 100/59 93 Mechanical Ventilator 60 06/26/17 15:19 108 16 75 06/26/17 15:00 98/50 06/26/17 15:00 99 16 122/69 93 Mechanical Ventilator 60 06/26/17 14:30 100 16 104/62 95 Mechanical Ventilator 60 06/26/17 14:00 100 16 104/59 95 Mechanical Ventilator 60 06/26/17 14:00 110/52 06/26/17 13:30 100 16 106/65 95 Mechanical Ventilator 60 06/26/17 13:08 110 16 75 06/26/17 13:00 103 16 108/71 94 Mechanical Ventilator 60 06/26/17 12:30 97 16 102/66 97 Mechanical Ventilator 60 06/26/17 12:00 104 06/26/17 12:00 98.4 93 18 107/64 96 Mechanical Ventilator 60 06/26/17 12:00 60 06/26/17 11:30 104 17 101/64 97 Mechanical Ventilator 60 06/26/17 11:15 111 06/26/17 10:59 115 17 108/64 97 Mechanical Ventilator 60 06/26/17 10:37 115 16 75 Intake and Output 06/27/17 06/28/17 19:00 07:00 Intake Total 40 ml Output Total 70 ml Balance -30 ml Other 40 ml Output Urine Total 70 ml General Appearance: WD/WN HEENT: normocephalic, atraumatic Respiratory/Chest: chest wall non-tender, lungs clear, normal breath sounds Breasts: no masses Cardiovascular: normal peripheral pulses, normal rate Abdomen: normal bowel sounds, soft, non tender, no organomegaly Genitourinary: normal external genitalia Extremities: no cyanosis Skin: no rash 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: 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 normal Lymphatic: no neck adenopathy, no groin adenopathy Microbiology Date/Time Source Procedure Growth Status 06/24/17 18:30 Blood Blood Culture - Preliminary Yeast Species Resulted 06/24/17 17:00 Blood Blood Culture - Preliminary NO GROWTH AFTER 48 HOURS Resulted 06/25/17 10:50 Sputum Gram Stain - Final Complete 06/25/17 10:50 Sputum Culture - Final Sharon Albicans Complete 06/24/17 19:29 Urine,Clean Catch Urine Culture - Final NO GROWTH AFTER 48 HOURS Complete Laboratory Tests 06/26/17 10:45: Vitamin B12 Level > 2000H 06/26/17 17:25: Vancomycin Level Trough 15.4H 06/27/17 04:30: White Blood Count 19.1H, Red Blood Count 2.78L, Hemoglobin 8.1L, Hematocrit 25.2L, Mean Corpuscular Volume 91, Mean Corpuscular Hemoglobin 29.1, Mean Corpuscular Hemoglobin Concent 32.1, Red Cell Distribution Width 18.3H, Platelet Count 349, Mean Platelet Volume 6.4L, Neutrophils (%) (Auto) , Lymphocytes (%) (Auto) , Monocytes (%) (Auto) , Eosinophils (%) (Auto) , Basophils (%) (Auto) , Differential Total Cells Counted 100, Neutrophils % ( Manual) 94H, Lymphocytes % (Manual) 4L, Monocytes % (Manual) 1, Eosinophils % ( Manual) 1, Basophils % (Manual) 0, Band Neutrophils 0, Platelet Estimate Adequate, Platelet Morphology Normal, Anisocytosis 1+, Schistocytes 1+, Sodium Level 148H, Potassium Level 3.6, Chloride Level 108H, Carbon Dioxide Level 29, Anion Gap 11, Blood Urea Nitrogen 17, Creatinine 0.5, Estimat Glomerular Filtration Rate > 60, Glucose Level 155H, Calcium Level 7.4L, Phosphorus Level 1.7L, Magnesium Level 1.5L, Total Bilirubin 0.4, Aspartate Amino Transf (AST/ SGOT) 177H, Alanine Aminotransferase (ALT/SGPT) 71H, Alkaline Phosphatase 367H, Total Protein 5.2L, Albumin 2.4L, Globulin 2.8, Albumin/Globulin Ratio 0.8L 06/27/17 10:06: Arterial Blood pH 7.420, Arterial Blood Partial Pressure CO2 38.9, Arterial Blood Partial Pressure O2 85.5, Arterial Blood HCO3 25.0, Arterial Blood Oxygen Saturation 96.0, Arterial Blood Base Excess 0.6, Jeffry Test Positive Current Medications Medications (Trade) Dose Ordered Sig/Kwabena Route PRN Reason Start Time Stop Time Status Last Admin Dose Admin Acetaminophen (Tylenol) 650 mg Q4H PRN ORAL fever 06/24/17 21:30 07/24/17 21:29 06/27/17 08:13 Albuterol/ Ipratropium (DuoNeb 0.5-3(2.5)mg/3ml) 3 ml Q4H PRN HHN Shortness of Breath 06/24/17 21:30 06/29/17 21:29 Calcium Gluconate 1 gm/Sodium Chloride 120 ml @ 240 mls/hr Q8HR IVPB 06/26/17 14:00 07/26/17 13:59 06/27/17 06:34 Chlorhexidine Gluconate (Angelique-Hex 2%) 1 applic DAILY TOPIC 06/25/17 21:00 07/25/17 20:59 06/27/17 08:12 Dextrose 1,000 ml @ 50 mls/hr Q20H IV 06/26/17 11:30 07/26/17 11:29 06/27/17 07:38 Ertapenem 1 gm/ Sodium Chloride 55 ml @ 110 mls/hr Q24H IV 06/25/17 02:00 06/30/17 01:59 06/27/17 01:46 Heparin Sodium (Porcine) (Heparin 5000 units/ml) 5,000 units EVERY 12 HOURS SUBQ 06/25/17 09:00 07/25/17 08:59 06/26/17 20:39 Lorazepam (Ativan 2mg/ml 1ml) 2 mg Q2H PRN IV For Anxiety 06/24/17 21:30 07/01/17 21:29 Magnesium Sulfate 100 ml @ 100 mls/hr Q1H IVPB 06/27/17 08:30 06/27/17 12:29 06/27/17 09:52 Micafungin Sodium 100 mg/Sodium Chloride 110 ml @ 110 mls/hr Q24H IVPB 06/26/17 20:00 07/03/17 19:59 06/26/17 20:35 Midodrine (Pro-Amatine) 10 mg THREE TIMES A DAY NG 06/26/17 10:15 07/26/17 10:14 06/27/17 08:12 Morphine Sulfate (Morphine Sulfate) 4 mg Q4H PRN IVP Severe Pain (Pain Scale 7-10) 06/24/17 21:30 07/01/17 21:29 06/26/17 20:37 Norepinephrine Bitartrate 4 mg/ Dextrose 254 ml @ 0 mls/hr Q24H IV 06/24/17 22:00 07/24/17 21:59 06/26/17 18:10 Ondansetron HCl (Zofran) 4 mg Q6H PRN IVP Nausea & Vomiting 06/24/17 21:30 07/24/17 21:29 Pantoprazole (Protonix) 40 mg Q12HR IVP 06/25/17 21:00 07/25/17 20:59 06/27/17 08:13 Polyethylene Glycol (Miralax) 17 gm DAILYPRN PRN ORAL Constipation 06/24/17 21:30 07/24/17 21:29 Potassium Phosphate 30 mm/ Sodium Chloride 285 ml @ 47.5 mls/hr ONCE ONCE IV 06/27/17 09:30 06/27/17 15:29 06/27/17 09:51 Vancomycin HCl (Vanco rx to dose) 1 ea DAILY PRN MISC PRN RX PROTOCOL 06/24/17 22:00 07/24/17 21:59 Vancomycin/Sodium Chloride 250 ml @ 166.667 mls/hr Q12HR@0600,1800 IVPB 06/25/17 06:00 06/30/17 05:59 06/27/17 06:34 NIXON CHEATHAM Jun 27, 2017 10:34
--- NOTE | 2017-06-27 14:00 | Diagnostic Imaging Report ---
Indication: Dyspnea Comparison: 06/26/17 A single view chest radiograph was obtained. Findings: Bilateral airspace opacification noted. There is a left pleural effusion again demonstrated. Heart size is relatively normal. Tubes and lines are stable. Impression: No change from the previous day
[2017-06-27] MEDS: Micafungin 100 MG in NS 110 ML IVPB SCH (19:39)
[2017-06-28] VITALS (24 sets, daily range): BP systolic 80–111; BP diastolic 40–73
[2017-06-28] MEDS: Ertapenem 1 GM in NS 55 ML IV SCH (01:58)
[2017-06-28 05:19] LABS: MEAN CORPUSCULAR HGB CONC 33.3 G/DL (32.0-36.0); MEAN CORPUSCULAR VOLUME 90 FL (80-99); MEAN PLATELET VOLUME 7.5 FL (6.5-10.1); PLATELET COUNT 312 K/UL (150-450); RED BLOOD COUNT 3.03 M/UL (4.20-5.40); RED CELL DISTRIBUTION WIDTH 18.1 % (11.6-14.8); WHITE BLOOD COUNT 21.9 K/UL (4.8-10.8)
[2017-06-28 05:44] LABS: ALANINE AMINOTRANSFERASE 42 U/L (3-33); ALBUMIN/GLOBULIN RATIO 0.7 (1.0-2.7); ANION GAP 12 (5-15); ASPARTATE AMINO TRANSFERASE 64 U/L (5-40); CALCIUM 7.8 mg/dL (8.6-10.2); CARBON DIOXIDE 25 mEQ/L (20-30); CHLORIDE 105 mEQ/L (98-107); CREATININE 0.5 mg/dL (0.5-0.9); GLOMERULAR FILTRATION RATE > 60 mL/min (>60); HEMOLYSIS 0; MAGNESIUM 2.1 mg/dL (1.7-2.5); POTASSIUM 2.9 mEQ/L (3.4-4.9); SODIUM 142 mEQ/L (135-145); TOTAL PROTEIN 5.2 g/dL (6.6-8.7)
[2017-06-28] MEDS: Vancomycin 750mg/NS 250ml 250 ML IVPB SCH ×2 (05:51→17:44)
[2017-06-28] MEDS: Calcium Gluconate 10% 1 GM in NS 110 ML IVPB SCH (05:52)
[2017-06-28] MEDS ORDERED: 1/2 NS 1000ml IV ONE (09:03)
[2017-06-28] MEDS ORDERED: Tubing IV Secondary IV ONE ×2 (09:03→09:08)
[2017-06-28] MEDS ORDERED: NS 275ml ONE ×2 (09:03→09:08)
--- NOTE | 2017-06-28 09:45 | Diagnostic Imaging Report ---
Indication: DYSPNEA Technique: One view of the chest Comparison: 06/27/2017 Findings: Diffuse and extensive consolidation of both lungs appears to progressed since the previous study. Large left pleural effusion is again demonstrated, probably increased in extent. Stable satisfactory positions of left arm PICC, nasogastric tube, endotracheal tube Impression: Worsening bilateral infiltrates Worsening left-sided pleural effusion, over one day
[2017-06-28] MEDS: Midodrine 10mg tab NG SCH (09:48)
[2017-06-28] MEDS: Pantoprazole Inj IVP SCH ×2 (09:48→21:01)
[2017-06-28] MEDS: Digoxin 0.5mg/2ml Inj IVP SCH (09:48)
[2017-06-28] MEDS: Heparin 5000 units/ml inj SUBQ SCH ×2 (09:48→21:03)
[2017-06-28 09:57] LABS: ANISOCYTOSIS 2+; BAND NEUTROPHILS % (MANUAL) 9 % (0-8); BASOPHILS % (MANUAL) 0 % (0-2); EOSINOPHILS % (MANUAL) 1 % (0-3); LYMPHOCYTES % (MANUAL) 3 % (20-45); NEUTROPHILS % (MANUAL) 86 % (45-75); PLATELET ESTIMATE ADEQUATE; PLATELET MORPHOLOGY NORMAL; TOTAL CELLS COUNTED 100
[2017-06-28 09:59] LABS: HYPOCHROMASIA 1+
--- NOTE | 2017-06-28 10:15 | Pulmonolgy Critical Care Note ---
Critical Care - Asmt/Plan Problems: (1) Respiratory failure (2) Septic shock (3) Hypotension (4) Lactic acid acidosis (5) Metastatic adenocarcinoma Respiratory: monitor respiratory rate, adjust FIO2, CXR Cardiac: continue to monitor HR/BP Renal: F/U I&O, keep IV fluid, check electrolytes Infectious Disease: check cultures Gastrointestinal: continue feedings/current rate, other - us of abdomen with possible paracentesis Endocrine: continue sliding scale insulin Hematologic: monitor H/H, transfuse if hgb<8.5 Neurologic: PRN Ativan, PRN Morphine, keep patient comfortable Affect: PRN ativan Disposition: keep in ICU Notes Reviewed: educational/development assistant, renal Discussed with: consultants, counseling case managerflight kitchen manager - Objective Last 24 Hour Vital Signs Date Time Temp Pulse Resp B/P (MAP) Pulse Ox O2 Delivery O2 Flow Rate FiO2 06/28/17 09:48 99 06/28/17 08:51 102 18 100 06/28/17 08:00 100 06/28/17 08:00 99.0 106 20 99/56 99 Mechanical Ventilator 100 06/28/17 07:00 103 20 85/55 99 Mechanical Ventilator 90 06/28/17 06:49 95 20 100 06/28/17 06:00 99.9 106 20 99/56 99 Mechanical Ventilator 100 06/28/17 05:21 100.3 06/28/17 05:00 119 21 100 06/28/17 05:00 100.3 107 21 110/66 95 Mechanical Ventilator 90 06/28/17 04:00 101.6 111 20 89/55 96 Mechanical Ventilator 90 06/28/17 04:00 111 06/28/17 04:00 90 06/28/17 03:00 102 21 92/56 97 Mechanical Ventilator 90 06/28/17 03:00 106 17 90 06/28/17 02:00 110 19 80/48 95 Mechanical Ventilator 90 06/28/17 01:30 108 21 90 06/28/17 01:00 103 19 91/46 95 Mechanical Ventilator 90 06/28/17 00:00 120 06/28/17 00:00 90 06/28/17 00:00 99.2 105 20 111/73 96 Mechanical Ventilator 90 06/27/17 23:01 115 19 90 06/27/17 23:00 111 20 105/63 95 Mechanical Ventilator 90 06/27/17 22:00 107 20 88/67 96 Mechanical Ventilator 90 06/27/17 22:00 88/67 06/27/17 21:00 100 16 90 06/27/17 21:00 115 20 86/57 96 Mechanical Ventilator 90 06/27/17 20:00 90 06/27/17 20:00 98.9 115 19 84/60 95 Mechanical Ventilator 90 06/27/17 20:00 119 06/27/17 19:07 114 17 90 06/27/17 19:00 106 20 96/55 98 Mechanical Ventilator 90 06/27/17 18:00 93 20 100/78 98 Mechanical Ventilator 90 06/27/17 17:00 108 20 98/63 98 Mechanical Ventilator 90 06/27/17 16:59 110 19 90 06/27/17 16:00 99.0 101 19 91/63 98 Mechanical Ventilator 90 06/27/17 16:00 90 06/27/17 16:00 101 06/27/17 15:12 97 16 90 06/27/17 15:00 94 20 89/54 98 Mechanical Ventilator 90 06/27/17 14:00 105 20 106/62 98 Mechanical Ventilator 90 06/27/17 13:28 112 17 90 06/27/17 13:00 96 20 104/63 98 Mechanical Ventilator 90 06/27/17 12:00 90 06/27/17 12:00 98.9 109 19 87/56 98 Mechanical Ventilator 90 06/27/17 12:00 96 06/27/17 11:00 98 20 86/57 98 Mechanical Ventilator 90 06/27/17 10:47 104 17 90 06/27/17 10:34 99 Status: sedated Condition: critical HEENT: atraumatic Neck: full ROM Lungs: clear Heart: HR/BP stable, HR/BP unstable, regular Abdomen: soft, non-tender Extremities: no C/C/E, edema Decubiti: location Micro: Microbiology Date/Time Source Procedure Growth Status 06/25/17 10:50 Sputum Gram Stain - Final Complete 06/25/17 10:50 Sputum Culture - Final Sharon Albicans Complete 06/28/17 00:05 Stool Clostridium difficile Toxin Assay - Final Complete Accucheck: 151 Critical Care - Subjective ROS Limited/Unobtainable: No ICU Day: 4 Intubation Day: 4 Condition: critical EKG Rhythm: Sinus Tachycardia FI02: 100 Vent Support Breath Rate: 16 Vent Support Mode: AC Vent Tidal Volume: 600 Sputum Amount: Small PEEP: 0.0 PIP: 51 I&O: Intake and Output 06/28/17 06/29/17 19:00 07:00 Output Total 20 ml Balance -20 ml Output Urine Total 20 ml CXR: worsening, ET tube in place ET-Tube: 7.5 ET Position: 22 Labs: Laboratory Tests Test 06/28/17 04:55 White Blood Count 21.9 K/UL (4.8-10.8) H Red Blood Count 3.03 M/UL (4.20-5.40) L Hemoglobin 9.1 G/DL (12.0-16.0) L Hematocrit 27.3 % (37.0-47.0) L Mean Corpuscular Volume 90 FL (80-99) Mean Corpuscular Hemoglobin 30.0 PG (27.0-31.0) Mean Corpuscular Hemoglobin Concent 33.3 G/DL (32.0-36.0) Red Cell Distribution Width 18.1 % (11.6-14.8) H Platelet Count 312 K/UL (150-450) Mean Platelet Volume 7.5 FL (6.5-10.1) Neutrophils (%) (Auto) % (45.0-75.0) Lymphocytes (%) (Auto) % (20.0-45.0) Monocytes (%) (Auto) % (1.0-10.0) Eosinophils (%) (Auto) % (0.0-3.0) Basophils (%) (Auto) % (0.0-2.0) Differential Total Cells Counted 100 Neutrophils % (Manual) 86 % (45-75) H Lymphocytes % (Manual) 3 % (20-45) L Monocytes % (Manual) 1 % (1-10) Eosinophils % (Manual) 1 % (0-3) Basophils % (Manual) 0 % (0-2) Band Neutrophils 9 % (0-8) H Platelet Estimate Adequate Platelet Morphology Normal Hypochromasia 1+ Anisocytosis 2+ Arterial Blood pH Pending Arterial Blood Partial Pressure CO2 Pending Arterial Blood Partial Pressure O2 Pending Arterial Blood HCO3 Pending Arterial Blood Oxygen Saturation Pending Arterial Blood Base Excess Pending Jeffry Test Pending Sodium Level 142 mEQ/L (135-145) Potassium Level 2.9 mEQ/L (3.4-4.9) L Chloride Level 105 mEQ/L (98-107) Carbon Dioxide Level 25 mEQ/L (20-30) Anion Gap 12 (5-15) Blood Urea Nitrogen 16 mg/dL (7-23) Creatinine 0.5 mg/dL (0.5-0.9) Estimat Glomerular Filtration Rate > 60 mL/min (>60) Glucose Level 169 mg/dL (74-106) H Calcium Level 7.8 mg/dL (8.6-10.2) L Phosphorus Level 3.0 mg/dL (2.5-4.8) Magnesium Level 2.1 mg/dL (1.7-2.5) Total Bilirubin 0.4 mg/dL (0.0-1.2) Aspartate Amino Transf (AST/SGOT) 64 U/L (5-40) H Alanine Aminotransferase (ALT/SGPT) 42 U/L (3-33) H Alkaline Phosphatase 299 U/L (35-104) H Total Protein 5.2 g/dL (6.6-8.7) L Albumin 2.2 g/dL (3.5-5.2) L Globulin 3.0 g/dL Albumin/Globulin Ratio 0.7 (1.0-2.7) L NIXON CHEATHAM Jun 28, 2017 10:15
--- NOTE | 2017-06-28 10:58 | GI Initial Consult Note ---
History of Present Illness General Date patient seen: Jun 28, 2017 Time patient seen: 10:50 Reason for Hospitalization: Vomiting Referring physician: NIXON CARTER Reason for Consultation: ABDOMINAL DISTENTION Present Illness HPI Patient is brought in by EMS. Report is obtained through them. Apparently she has stage IV metastatic cancer. I am uncertain of the source. She is being treated at [facility]. She was recently discharged from [facility]. Apparently for the past couple days the patient has been unresponsive at home. The called 911. On arrival she has a GCS of 3, is unresponsive and has agonal breathing. She is bradycardic with a pulse ox in the high 40s. Apparently she had an episode of emesis just prior to arrival. There is no other history available. GI Consult. HPI as noted above. GI consulted for abdominal distention. ROS limited, family at bedside. Patient on mechanical vent with NGT to suction. Noted patient has episodes of emesis after flush and/or feeding pushed. Patient presents today with abdominal distention, generalized anasarca, leukocytosis, anemia, hypoalbuminemia and transaminitis. Cdiff negative. Unknown history of endoscopic procedures. Home Meds Reported Medications Morphine 10mg/5ml Oral Soln* (Morphine 10mg/5ml Oral Soln*) 10 Mg/5 Ml Solution , 2.5 ML ORAL EVERY 4 HOURS Y for For Pain, ML 0 Refills 06/25/17 Omeprazole (OMEPRAZOLE) 20 Mg Capsule.dr, 20 MG ORAL BID, CAP 06/25/17 Acetaminophen* (TYLENOL EXTRA STRENGTH*) 500 Mg Tablet, 500 MG ORAL Q6H Y for fever, TAB 0 Refills 06/25/17 Potassium Chloride (POTASSIUM CHLORIDE) 40 Meq/15 Ml Liquid, 30 MEQ PO EVERY 12 HOURS, ML 06/25/17 Enoxaparin* (LOVENOX*) 30 Mg/0.3 Ml Inj, 1 ML SUBQ DAILY, EA 0 Refills 06/25/17 Metronidazole* (FLAGYL*) 500 Mg Tablet, 500 MG ORAL EVERY 6 HOURS for 7 Days, TAB 06/25/17 Levofloxacin* (LEVAQUIN*) 750 Mg Tablet, 750 MG ORAL DAILY for 7 Days, TAB 06/25/17 Morphine 10mg/5ml Oral Soln* (Morphine 10mg/5ml Oral Soln*) 10 Mg/5 Ml Solution , 15 MG ORAL EVERY 12 HOURS Y for For Pain, ML 0 Refills 06/25/17 Ondansetron Odt* (ZOFRAN ODT*) 4 Mg Tab.rapdis, 4 MG ORAL Q6H Y for Nausea & Vomiting, TAB 06/25/17 No Known Medications* (NKM - No Known Medications*) ., 0 ., 0 Refills 06/24/17 Med list reviewed/reconciled: Yes Allergies: Coded Allergies: No Known Allergies (Unverified , 06/24/17) Patient History Limited by: medical condition History Provided By: Medical Record [facility] Narrative Past Medical History: see triage record, unable to obtain, other - Stage 4 metastatic ca Past Surgical History: unable to obtain Pertinent Family History: unable to obtain Nursing Documentation-H Hx Cancer: Yes - STAGE 4 CARCINOMA Social History: Denies: smoking, alcohol use, drug use, other Review of Systems All Other Systems: limited Physical Exam Vital Signs Date Time Temp Pulse Resp B/P (MAP) Pulse Ox O2 Delivery O2 Flow Rate FiO2 06/24/17 17:27 19 109/69 93 Non-Rebreather 15.0 06/24/17 17:38 124 100 06/24/17 19:00 103.9 Sp02 EP Interpretation: reviewed Labs Laboratory Tests Test 06/28/17 04:55 White Blood Count 21.9 K/UL (4.8-10.8) H Red Blood Count 3.03 M/UL (4.20-5.40) L Hemoglobin 9.1 G/DL (12.0-16.0) L Hematocrit 27.3 % (37.0-47.0) L Mean Corpuscular Volume 90 FL (80-99) Mean Corpuscular Hemoglobin 30.0 PG (27.0-31.0) Mean Corpuscular Hemoglobin Concent 33.3 G/DL (32.0-36.0) Red Cell Distribution Width 18.1 % (11.6-14.8) H Platelet Count 312 K/UL (150-450) Mean Platelet Volume 7.5 FL (6.5-10.1) Neutrophils (%) (Auto) % (45.0-75.0) Lymphocytes (%) (Auto) % (20.0-45.0) Monocytes (%) (Auto) % (1.0-10.0) Eosinophils (%) (Auto) % (0.0-3.0) Basophils (%) (Auto) % (0.0-2.0) Differential Total Cells Counted 100 Neutrophils % (Manual) 86 % (45-75) H Lymphocytes % (Manual) 3 % (20-45) L Monocytes % (Manual) 1 % (1-10) Eosinophils % (Manual) 1 % (0-3) Basophils % (Manual) 0 % (0-2) Band Neutrophils 9 % (0-8) H Platelet Estimate Adequate Platelet Morphology Normal Hypochromasia 1+ Anisocytosis 2+ Arterial Blood pH Pending Arterial Blood Partial Pressure CO2 Pending Arterial Blood Partial Pressure O2 Pending Arterial Blood HCO3 Pending Arterial Blood Oxygen Saturation Pending Arterial Blood Base Excess Pending Jeffry Test Pending Sodium Level 142 mEQ/L (135-145) Potassium Level 2.9 mEQ/L (3.4-4.9) L Chloride Level 105 mEQ/L (98-107) Carbon Dioxide Level 25 mEQ/L (20-30) Anion Gap 12 (5-15) Blood Urea Nitrogen 16 mg/dL (7-23) Creatinine 0.5 mg/dL (0.5-0.9) Estimat Glomerular Filtration Rate > 60 mL/min (>60) Glucose Level 169 mg/dL (74-106) H Calcium Level 7.8 mg/dL (8.6-10.2) L Phosphorus Level 3.0 mg/dL (2.5-4.8) Magnesium Level 2.1 mg/dL (1.7-2.5) Total Bilirubin 0.4 mg/dL (0.0-1.2) Aspartate Amino Transf (AST/SGOT) 64 U/L (5-40) H Alanine Aminotransferase (ALT/SGPT) 42 U/L (3-33) H Alkaline Phosphatase 299 U/L (35-104) H Total Protein 5.2 g/dL (6.6-8.7) L Albumin 2.2 g/dL (3.5-5.2) L Globulin 3.0 g/dL Albumin/Globulin Ratio 0.7 (1.0-2.7) L General Appearance: no apparent distress Head: normocephalic EENT: normal ENT inspection Neck: supple Respiratory: other - mech vent Cardiovascular: normal rate Gastrointestinal: distended, ascites, ngt - TO LIS Rectal: deferred Genitourinary: no CVA tenderness Musculoskeletal: back normal Neurologic: alert Psychiatric: normal inspection, judgement/insight normal, memory normal Skin: normal inspection, normal color, no rash, other - +3 edema BLE Current Medications Current Medications Medications (Trade) Dose Ordered Sig/Kwabena Route PRN Reason Start Time Stop Time Status Last Admin Dose Admin Acetaminophen (Tylenol) 650 mg Q4H PRN ORAL fever 06/24/17 21:30 07/24/17 21:29 06/28/17 04:22 Albuterol/ Ipratropium (DuoNeb 0.5-3(2.5)mg/3ml) 3 ml Q4H PRN HHN Shortness of Breath 06/24/17 21:30 06/29/17 21:29 Calcium Gluconate 1 gm/Sodium Chloride 120 ml @ 240 mls/hr Q8HR IVPB 06/26/17 14:00 07/26/17 13:59 06/28/17 05:52 Chlorhexidine Gluconate (Angelique-Hex 2%) 1 applic BEDTIME TOPIC 06/28/17 21:00 07/25/17 21:00 Dextrose 1,000 ml @ 50 mls/hr Q20H IV 06/26/17 11:30 07/26/17 11:29 06/27/17 21:47 Digoxin (Lanoxin) 0.25 mg DAILY IVP 06/28/17 09:30 07/28/17 09:29 06/28/17 09:48 Ergocalciferol (Drisdol) 50,000 intlu QWEEK ORAL 06/28/17 17:00 07/28/17 16:59 Ertapenem 1 gm/ Sodium Chloride 55 ml @ 110 mls/hr Q24H IV 06/25/17 02:00 06/30/17 01:59 06/28/17 01:58 Heparin Sodium (Porcine) (Heparin 5000 units/ml) 5,000 units EVERY 12 HOURS SUBQ 06/25/17 09:00 07/25/17 08:59 06/28/17 09:48 Lorazepam (Ativan 2mg/ml 1ml) 2 mg Q2H PRN IV For Anxiety 06/24/17 21:30 07/01/17 21:29 Micafungin Sodium 100 mg/Sodium Chloride 110 ml @ 110 mls/hr Q24H IVPB 06/26/17 20:00 07/03/17 19:59 06/27/17 19:39 Morphine Sulfate (Morphine Sulfate) 4 mg Q4H PRN IVP Severe Pain (Pain Scale 7-10) 06/24/17 21:30 07/01/17 21:29 06/26/17 20:37 Norepinephrine Bitartrate 4 mg/ Dextrose 254 ml @ 0 mls/hr Q24H IV 06/24/17 22:00 07/24/17 21:59 06/26/17 18:10 Ondansetron HCl (Zofran) 4 mg Q6H PRN IVP Nausea & Vomiting 06/24/17 21:30 07/24/17 21:29 Pantoprazole (Protonix) 40 mg Q12HR IVP 06/25/17 21:00 07/25/17 20:59 06/28/17 09:48 Potassium Chloride 100 ml @ 50 mls/hr Q2H IVPB 06/28/17 09:30 06/28/17 15:29 06/28/17 09:47 Vancomycin HCl (Vanco rx to dose) 1 ea DAILY PRN MISC PRN RX PROTOCOL 06/24/17 22:00 07/24/17 21:59 Vancomycin/Sodium Chloride 250 ml @ 166.667 mls/hr Q12HR@0600,1800 IVPB 06/25/17 06:00 06/30/17 05:59 06/28/17 05:51 GI: Plan Problems: (1) Severe malnutrition (2) Transaminitis (3) Ascites (4) Metastatic adenocarcinoma (5) Anemia (6) Respiratory failure Plan cdiff negative supportive care monitor H&H, prn transfusion abdominal paracentesis >> r/o SBP maintain NPO + NGT to LIS consider reglan if patient has persistent emesis ppi abx pulmonary care fu labs, tumor markers request med records from [facility] Discussed with Dr. Alexis. Thank you for referring this patient, we will follow. Stephanie Funes N.P. Jun 28, 2017 10:58
[2017-06-28] MEDS: Morphine Sulfate 4mg/ml Inj IVP PRN (12:44)
[2017-06-28] MEDS ORDERED: Metoclopramide 10mg/2ml Inj IVP PRN (13:00)
--- NOTE | 2017-06-28 14:08 | General Progress Note ---
Assessment/Plan Status: stable - from renal stand Assessment/Plan Respiratory failure Additional Impressions: Pulmonary edema Pleural effusion Sepsis with Shock Hypotension Anemia Lactic acid acidosis Low albumin and proteinuria EjFx 45% : Global left ventricular hypokinesis. IV to D5 NGT feeding 24 H Urine Proteins Pending midodrine Calcium IV decrease the ddose IV digoxin Per orders Subjective Allergies: Coded Allergies: No Known Allergies (Unverified , 06/24/17) Objective Last 24 Hour Vital Signs Date Time Temp Pulse Resp B/P (MAP) Pulse Ox O2 Delivery O2 Flow Rate FiO2 06/28/17 13:22 108 16 100 06/28/17 13:14 99.0 06/28/17 13:00 104 20 86/40 99 Mechanical Ventilator 100 06/28/17 12:00 99.0 113 20 90/50 99 Mechanical Ventilator 90 06/28/17 12:00 112 06/28/17 12:00 90 06/28/17 11:00 104 20 94/71 99 Mechanical Ventilator 100 06/28/17 10:43 112 22 100 06/28/17 10:00 105 20 99/58 99 Mechanical Ventilator 100 06/28/17 09:48 99 06/28/17 09:00 101 21 90/58 99 Mechanical Ventilator 100 06/28/17 08:51 102 18 100 06/28/17 08:00 100 06/28/17 08:00 99.0 106 20 99/56 99 Mechanical Ventilator 100 06/28/17 08:00 104 06/28/17 07:00 103 20 85/55 99 Mechanical Ventilator 90 06/28/17 06:49 95 20 100 06/28/17 06:00 99.9 106 20 99/56 99 Mechanical Ventilator 100 06/28/17 05:21 100.3 06/28/17 05:00 119 21 100 06/28/17 05:00 100.3 107 21 110/66 95 Mechanical Ventilator 90 06/28/17 04:00 101.6 111 20 89/55 96 Mechanical Ventilator 90 06/28/17 04:00 111 06/28/17 04:00 90 06/28/17 03:00 102 21 92/56 97 Mechanical Ventilator 90 06/28/17 03:00 106 17 90 06/28/17 02:00 110 19 80/48 95 Mechanical Ventilator 90 06/28/17 01:30 108 21 90 06/28/17 01:00 103 19 91/46 95 Mechanical Ventilator 90 06/28/17 00:00 120 06/28/17 00:00 90 06/28/17 00:00 99.2 105 20 111/73 96 Mechanical Ventilator 90 06/27/17 23:01 115 19 90 06/27/17 23:00 111 20 105/63 95 Mechanical Ventilator 90 06/27/17 22:00 107 20 88/67 96 Mechanical Ventilator 90 06/27/17 22:00 88/67 06/27/17 21:00 100 16 90 06/27/17 21:00 115 20 86/57 96 Mechanical Ventilator 90 06/27/17 20:00 90 06/27/17 20:00 98.9 115 19 84/60 95 Mechanical Ventilator 90 06/27/17 20:00 119 06/27/17 19:07 114 17 90 06/27/17 19:00 106 20 96/55 98 Mechanical Ventilator 90 06/27/17 18:00 93 20 100/78 98 Mechanical Ventilator 90 06/27/17 17:00 108 20 98/63 98 Mechanical Ventilator 90 06/27/17 16:59 110 19 90 06/27/17 16:00 99.0 101 19 91/63 98 Mechanical Ventilator 90 06/27/17 16:00 90 06/27/17 16:00 101 06/27/17 15:12 97 16 90 06/27/17 15:00 94 20 89/54 98 Mechanical Ventilator 90 Intake and Output 06/28/17 06/29/17 19:00 07:00 Intake Total 493.333 ml Output Total 90 ml Balance 403.333 ml IV Total 433.333 ml Other 60 ml Output Urine Total 90 ml Laboratory Tests 06/28/17 04:55: White Blood Count 21.9H, Red Blood Count 3.03L, Hemoglobin 9.1L, Hematocrit 27.3L, Mean Corpuscular Volume 90, Mean Corpuscular Hemoglobin 30.0, Mean Corpuscular Hemoglobin Concent 33.3, Red Cell Distribution Width 18.1H, Platelet Count 312, Mean Platelet Volume 7.5, Neutrophils (%) (Auto) , Lymphocytes (%) (Auto) , Monocytes (%) (Auto) , Eosinophils (%) (Auto) , Basophils (%) (Auto) , Differential Total Cells Counted 100, Neutrophils % ( Manual) 86H, Lymphocytes % (Manual) 3L, Monocytes % (Manual) 1, Eosinophils % ( Manual) 1, Basophils % (Manual) 0, Band Neutrophils 9H, Platelet Estimate Adequate, Platelet Morphology Normal, Hypochromasia 1+, Anisocytosis 2+, Arterial Blood pH [Pending], Arterial Blood Partial Pressure CO2 [Pending], Arterial Blood Partial Pressure O2 [Pending], Arterial Blood HCO3 [Pending], Arterial Blood Oxygen Saturation [Pending], Arterial Blood Base Excess [Pending] , Jeffry Test [Pending], Sodium Level 142, Potassium Level 2.9L, Chloride Level 105, Carbon Dioxide Level 25, Anion Gap 12, Blood Urea Nitrogen 16, Creatinine 0.5, Estimat Glomerular Filtration Rate > 60, Glucose Level 169H, Calcium Level 7.8L, Phosphorus Level 3.0, Magnesium Level 2.1, Total Bilirubin 0.4, Aspartate Amino Transf (AST/SGOT) 64H, Alanine Aminotransferase (ALT/SGPT) 42H, Alkaline Phosphatase 299H, Total Protein 5.2L, Albumin 2.2L, Globulin 3.0, Albumin/ Globulin Ratio 0.7L Height (Feet): 5 Height (Inches): 4.00 Weight (Pounds): 142 General Appearance: no apparent distress Cardiovascular: tachycardia Respiratory/Chest: decreased breath sounds Objective no change in other PE TIARRA HOWARD Jun 28, 2017 14:08
[2017-06-28 14:11] LABS: ABG ALLEN TEST POSITIVE; ABG BASE EXCESS 1.6; ABG PCO2 41.1 mmHg (35.0-45.0)
--- NOTE | 2017-06-28 15:50 | Diagnostic Imaging Report ---
Indications: Ascites Technique: Procedure performed at bedside Ultrasound used to localize optimal puncture site. Sterile prepping and draping right lower quadrant. Local anesthesia with 1% lidocaine. Under real-time ultrasound guidance, puncture peritoneal space using paracentesis needle. Stylet removed. Catheter placed to vacuum bottle suction. Total 3.4 liters of clear yellow fluid aspirated. Patient tolerated procedure well, without immediate complication. Findings: Followup sonography demonstrates complete resolution of peritoneal fluid. Impression: Successful ultrasound-guided paracentesis, yielding 3.4 liters of clear yellow fluid
[2017-06-28 16:56] LABS: APPEARANCE, BODY FLUID CLOUDY; BD FL VOLUME 24 mL
[2017-06-28 16:57] LABS: BD FL SOURCE ASCITIC FLUID
[2017-06-28] MEDS ORDERED: Vitamin D 50,000 units cap ORAL SCH (17:00)
[2017-06-28 18:39] LABS: BODY FLUID NUCLEATED CELLS 145 /CUMM; BODY FLUID RBC 4560 /CUMM; MONONUCLEAR WBC 14 %; POLYMORPHONUCLEAR WBC 86 %
[2017-06-28] MEDS ORDERED: Heparin 2000 units/Ns 1000ml INJ PRN (18:45)
[2017-06-28] MEDS ORDERED: Lidocaine 1% Plain 30 ml INJ PRN (18:45)
[2017-06-28] MEDS ORDERED: Sodium Bicarbonate 50ml Carp IV PRN (18:45)
--- NOTE | 2017-06-28 19:07 | Infectious Diseases Prog Note ---
Assessment/Plan Assessment/Plan Assessment: The patient is a 56-year-old female with Fungemia ( Lusitaniae ) Sepsis Septic shock, SP off of pressors Leukocytosis. Possible healthcare-associated pneumonia. Hypertension. Metastatic cancer. History of diabetes. Metastasis to the liver PLAN: continue the patient on IV ertapenem d# 4 / 7, and IV Mycamine d# 3 / 14-21 DC vancomycin # 4 Monitor CBC Monitor BMP. Monitor cultures (sputum, urine, blood). repeat Blood cx in AM We will continue the patient on vent support. remove PICC and Tip for Cx ( SHAYY RN ) Monitor chest x-ray. paracentesis Subjective Constitutional: Denies: no symptoms, fever, chills, fatigue, anorexia, drenching sweats, other Allergies: Coded Allergies: No Known Allergies (Unverified , 06/24/17) Objective Vital Signs Last 24 Hour Vital Signs Date Time Temp Pulse Resp B/P (MAP) Pulse Ox O2 Delivery O2 Flow Rate FiO2 06/28/17 18:00 101 19 96/66 97 Mechanical Ventilator 90 06/28/17 17:12 103 16 90 06/28/17 17:00 103 20 80/54 97 Mechanical Ventilator 90 06/28/17 16:00 90 06/28/17 16:00 99.2 86 21 89/54 99 Mechanical Ventilator 90 06/28/17 16:00 105 06/28/17 15:11 109 17 90 06/28/17 15:00 109 20 87/57 99 Mechanical Ventilator 90 06/28/17 14:00 118 21 90/55 99 Mechanical Ventilator 100 06/28/17 13:22 108 16 90 06/28/17 13:14 99.0 06/28/17 13:00 104 20 86/40 99 Mechanical Ventilator 100 06/28/17 12:00 99.0 113 20 90/50 99 Mechanical Ventilator 90 06/28/17 12:00 112 06/28/17 12:00 90 06/28/17 11:00 104 20 94/71 99 Mechanical Ventilator 100 06/28/17 10:43 112 22 100 06/28/17 10:00 105 20 99/58 99 Mechanical Ventilator 100 06/28/17 09:48 99 06/28/17 09:00 101 21 90/58 99 Mechanical Ventilator 100 06/28/17 08:51 102 18 100 06/28/17 08:00 100 9/15/17 08:00 99.0 106 20 99/56 99 Mechanical Ventilator 100 06/28/17 08:00 104 06/28/17 07:00 103 20 85/55 99 Mechanical Ventilator 90 06/28/17 06:49 95 20 100 06/28/17 06:00 99.9 106 20 99/56 99 Mechanical Ventilator 100 06/28/17 05:21 100.3 06/28/17 05:00 119 21 100 06/28/17 05:00 100.3 107 21 110/66 95 Mechanical Ventilator 90 06/28/17 04:00 101.6 111 20 89/55 96 Mechanical Ventilator 90 06/28/17 04:00 111 06/28/17 04:00 90 06/28/17 03:00 102 21 92/56 97 Mechanical Ventilator 90 06/28/17 03:00 106 17 90 06/28/17 02:00 110 19 80/48 95 Mechanical Ventilator 90 06/28/17 01:30 108 21 90 06/28/17 01:00 103 19 91/46 95 Mechanical Ventilator 90 06/28/17 00:00 120 06/28/17 00:00 90 06/28/17 00:00 99.2 105 20 111/73 96 Mechanical Ventilator 90 06/27/17 23:01 115 19 90 06/27/17 23:00 111 20 105/63 95 Mechanical Ventilator 90 06/27/17 22:00 107 20 88/67 96 Mechanical Ventilator 90 06/27/17 22:00 88/67 06/27/17 21:00 100 16 90 06/27/17 21:00 115 20 86/57 96 Mechanical Ventilator 90 06/27/17 20:00 90 06/27/17 20:00 98.9 115 19 84/60 95 Mechanical Ventilator 90 06/27/17 20:00 119 06/27/17 19:07 114 17 90 Height (Feet): 5 Height (Inches): 4.00 Weight (Pounds): 142 HEENT: anicteric Respiratory/Chest: chest wall non-tender Cardiovascular: regularly irregular Abdomen: non distended Microbiology Date/Time Source Procedure Growth Status 06/28/17 00:05 Stool Clostridium difficile Toxin Assay - Final Complete Laboratory Tests Test 06/28/17 04:55 06/28/17 14:05 06/28/17 15:00 White Blood Count 21.9 K/UL (4.8-10.8) H Red Blood Count 3.03 M/UL (4.20-5.40) L Hemoglobin 9.1 G/DL (12.0-16.0) L Hematocrit 27.3 % (37.0-47.0) L Mean Corpuscular Volume 90 FL (80-99) Mean Corpuscular Hemoglobin 30.0 PG (27.0-31.0) Mean Corpuscular Hemoglobin Concent 33.3 G/DL (32.0-36.0) Red Cell Distribution Width 18.1 % (11.6-14.8) H Platelet Count 312 K/UL (150-450) Mean Platelet Volume 7.5 FL (6.5-10.1) Neutrophils (%) (Auto) % (45.0-75.0) Lymphocytes (%) (Auto) % (20.0-45.0) Monocytes (%) (Auto) % (1.0-10.0) Eosinophils (%) (Auto) % (0.0-3.0) Basophils (%) (Auto) % (0.0-2.0) Differential Total Cells Counted 100 Neutrophils % (Manual) 86 % (45-75) H Lymphocytes % (Manual) 3 % (20-45) L Monocytes % (Manual) 1 % (1-10) Eosinophils % (Manual) 1 % (0-3) Basophils % (Manual) 0 % (0-2) Band Neutrophils 9 % (0-8) H Platelet Estimate Adequate Platelet Morphology Normal Hypochromasia 1+ Anisocytosis 2+ Arterial Blood pH Pending 7.420 (7.350-7.450) Arterial Blood Partial Pressure CO2 Pending 41.1 mmHg (35.0-45.0) Arterial Blood Partial Pressure O2 Pending 83.2 mmHg (75.0-100.0) Arterial Blood HCO3 Pending 26.2 mmol/L (22.0-26.0) H Arterial Blood Oxygen Saturation Pending 96.0 % (92.0-98.0) Arterial Blood Base Excess Pending 1.6 Jeffry Test Pending Positive Sodium Level 142 mEQ/L (135-145) Potassium Level 2.9 mEQ/L (3.4-4.9) L Chloride Level 105 mEQ/L (98-107) Carbon Dioxide Level 25 mEQ/L (20-30) Anion Gap 12 (5-15) Blood Urea Nitrogen 16 mg/dL (7-23) Creatinine 0.5 mg/dL (0.5-0.9) Estimat Glomerular Filtration Rate > 60 mL/min (>60) Glucose Level 169 mg/dL (74-106) H Calcium Level 7.8 mg/dL (8.6-10.2) L Phosphorus Level 3.0 mg/dL (2.5-4.8) Magnesium Level 2.1 mg/dL (1.7-2.5) Total Bilirubin 0.4 mg/dL (0.0-1.2) Aspartate Amino Transf (AST/SGOT) 64 U/L (5-40) H Alanine Aminotransferase (ALT/SGPT) 42 U/L (3-33) H Alkaline Phosphatase 299 U/L (35-104) H Total Protein 5.2 g/dL (6.6-8.7) L Albumin 2.2 g/dL (3.5-5.2) L Globulin 3.0 g/dL Albumin/Globulin Ratio 0.7 (1.0-2.7) L Body Fluid Source Ascitic fluid Body Fluid Volume 24 mL Body Fluid Appearance Cloudy Body Fluid RBC 4560 /CUMM Body Fluid Total Nucleated Cells 145 /CUMM Body Fluid Polynuclear WBCs (%) 86 % Body Fluid Mononuclear WBCs (%) 14 % Body Fluid Mesothelial Cells (%) 0 % Body Fluid Glucose Pending Body Fluid Total Protein Pending Body Fluid Albumin Pending Current Medications Medications (Trade) Dose Ordered Sig/K[place] Route PRN Reason Start Time Stop Time Status Last Admin Dose Admin Acetaminophen (Tylenol) 650 mg Q4H PRN ORAL fever 06/28/17 11:00 07/28/17 10:59 Albuterol/ Ipratropium (DuoNeb 0.5-3(2.5)mg/3ml) 3 ml Q4H PRN HHN Shortness of Breath 06/24/17 21:30 06/29/17 21:29 Calcium Gluconate 1 gm/Sodium Chloride 120 ml @ 240 mls/hr Q12HR IVPB 06/29/17 09:00 07/26/17 13:59 Chlorhexidine Gluconate (Angelique-Hex 2%) 1 applic DAILY TOPIC 06/29/17 09:00 07/29/17 08:59 Dextrose 1,000 ml @ 50 mls/hr Q20H IV 06/26/17 11:30 07/26/17 11:29 06/28/17 17:44 Digoxin (Lanoxin) 0.25 mg DAILY IVP 06/28/17 09:30 07/28/17 09:29 06/28/17 09:48 Ergocalciferol (Drisdol) 50,000 intlu QWEEK ORAL 06/28/17 17:00 07/28/17 16:59 Ertapenem 1 gm/ Sodium Chloride 55 ml @ 110 mls/hr Q24H IV 06/25/17 02:00 06/30/17 01:59 06/28/17 01:58 Heparin Sodium (Porcine) (Heparin 5000 units/ml) 5,000 units EVERY 12 HOURS SUBQ 06/25/17 09:00 07/25/17 08:59 06/28/17 09:48 Heparin Sodium/ Sodium Chloride (Heparin 2000 units/Ns 1000ml premix) 2,000 unit ONCE PRN INJ PICC PLACEMENT 06/28/17 18:45 06/29/17 23:59 Lidocaine HCl (Xylocaine 1% 30ml) 30 ml ONCE PRN INJ PICC PLACEMENT 06/28/17 18:45 06/29/17 23:59 Lorazepam (Ativan 2mg/ml 1ml) 2 mg Q2H PRN IV For Anxiety 06/24/17 21:30 07/01/17 21:29 Metoclopramide HCl (Reglan) 10 mg Q8H PRN IVP Nausea & Vomiting 06/28/17 13:00 07/28/17 12:59 Micafungin Sodium 100 mg/Sodium Chloride 110 ml @ 110 mls/hr Q24H IVPB 06/26/17 20:00 07/03/17 19:59 06/27/17 19:39 Morphine Sulfate (Morphine Sulfate) 4 mg Q4H PRN IVP Severe Pain (Pain Scale 7-10) 06/24/17 21:30 07/01/17 21:29 06/28/17 12:44 Norepinephrine Bitartrate 4 mg/ Dextrose 254 ml @ 0 mls/hr Q24H IV 06/24/17 22:00 07/24/17 21:59 06/26/17 18:10 Ondansetron HCl (Zofran) 4 mg Q6H PRN IVP Nausea & Vomiting 06/24/17 21:30 07/24/17 21:29 Pantoprazole (Protonix) 40 mg Q12HR IVP 06/25/17 21:00 07/25/17 20:59 06/28/17 09:48 Sodium Bicarbonate (Sodium Bicarbonate) 50 ml ONCE PRN IV PICC LINE USE 06/28/17 18:45 06/29/17 23:59 Vancomycin HCl (Vanco rx to dose) 1 ea DAILY PRN MISC PRN RX PROTOCOL 06/24/17 22:00 07/24/17 21:59 Vancomycin/Sodium Chloride 250 ml @ 166.667 mls/hr Q12HR@0600,1800 IVPB 06/25/17 06:00 06/30/17 05:59 06/28/17 17:44 HENRIETTA FRANCIS M.D. Jun 28, 2017 19:07
[2017-06-28] MEDS: Micafungin 100 MG in NS 110 ML IVPB SCH (19:58)
[2017-06-28] MEDS ORDERED: Dyna-Hex 2% Top Sol 8oz TOPIC SCH (21:00)
[2017-06-29] VITALS (59 sets, daily range): BP systolic 39–142; BP diastolic 16–104
[2017-06-29] MEDS: Acetaminophen 650mg/20.3ml ORAL PRN ×2 (00:24→20:28)
[2017-06-29] MEDS: Ertapenem 1 GM in NS 55 ML IV SCH (02:01)
[2017-06-29] MEDS ORDERED: Levophed 4mg/4mL Inj IV ONE (05:22)
[2017-06-29 08:01] LABS: MEAN CORPUSCULAR HEMOGLOBIN 28.1 PG (27.0-31.0); MEAN CORPUSCULAR HGB CONC 31.4 G/DL (32.0-36.0); MEAN CORPUSCULAR VOLUME 89 FL (80-99); MEAN PLATELET VOLUME 7.4 FL (6.5-10.1); PLATELET COUNT 326 K/UL (150-450); RED BLOOD COUNT 3.46 M/UL (4.20-5.40); RED CELL DISTRIBUTION WIDTH 17.7 % (11.6-14.8)
[2017-06-29 08:02] LABS: ABG BASE EXCESS -3.6
[2017-06-29 08:03] LABS: ABG ALLEN TEST POSITIVE
[2017-06-29 08:18] LABS: WHITE BLOOD COUNT 22.4 K/UL (4.8-10.8)
[2017-06-29 08:35] LABS: ALANINE AMINOTRANSFERASE 31 U/L (3-33); ALBUMIN/GLOBULIN RATIO 0.5 (1.0-2.7); ANION GAP 13 (5-15); ASPARTATE AMINO TRANSFERASE 58 U/L (5-40); CALCIUM 7.5 mg/dL (8.6-10.2); CARBON DIOXIDE 23 mEQ/L (20-30); CHLORIDE 104 mEQ/L (98-107); CREATININE 0.7 mg/dL (0.5-0.9); GLOMERULAR FILTRATION RATE > 60 mL/min (>60); HEMOLYSIS 2; MAGNESIUM 2.1 mg/dL (1.7-2.5); PHOSPHORUS 3.2 mg/dL (2.5-4.8); POTASSIUM 3.2 mEQ/L (3.4-4.9); SODIUM 140 mEQ/L (135-145); TOTAL PROTEIN 5.2 g/dL (6.6-8.7)
[2017-06-29 08:36] LABS: URIC ACID 3.9 mg/dL (3.0-7.5)
--- NOTE | 2017-06-29 08:40 | General Progress Note ---
Assessment/Plan Status: unchanged Status Narrative Feeding on hold for vomiting Assessment/Plan Respiratory failure Additional Impressions: Pulmonary edema Pleural effusion Sepsis with Shock Hypotension Anemia Lactic acid acidosis Low albumin and proteinuria EjFx 45% : Global left ventricular hypokinesis. Had paracenthesis IV to D5 NGT feeding held. NG suction- 24 H Urine Proteins Pending midodrine Calcium IV decrease the ddose IV digoxin Per orders Subjective ROS Limited/Unobtainable: Yes Allergies: Coded Allergies: No Known Allergies (Unverified , 06/24/17) Objective Last 24 Hour Vital Signs Date Time Temp Pulse Resp B/P (MAP) Pulse Ox O2 Delivery O2 Flow Rate FiO2 06/29/17 08:22 100 06/29/17 07:10 117 16 80 06/29/17 07:00 103 20 99/62 96 Mechanical Ventilator 80 06/29/17 07:00 99/62 06/29/17 06:45 100 19 89/57 97 Mechanical Ventilator 80 06/29/17 06:30 101 19 89/57 96 Mechanical Ventilator 80 06/29/17 06:15 102 19 90/55 96 Mechanical Ventilator 80 06/29/17 06:00 103 17 103/53 96 Mechanical Ventilator 80 06/29/17 06:00 103/54 06/29/17 05:45 102 18 92/55 96 Mechanical Ventilator 80 06/29/17 05:36 102 18 80 06/29/17 05:30 101 18 103/68 97 Mechanical Ventilator 80 06/29/17 05:27 79/45 06/29/17 05:00 97 20 79/45 97 Mechanical Ventilator 80 06/29/17 04:00 99.5 103 18 94/65 94 Mechanical Ventilator 80 06/29/17 04:00 100 06/29/17 04:00 80 06/29/17 03:29 107 21 85 06/29/17 03:00 106 20 85/51 97 Mechanical Ventilator 85 06/29/17 02:00 99.7 103 20 91/45 96 Mechanical Ventilator 85 06/29/17 01:54 121 22 85 06/29/17 01:00 100.0 108 19 82/48 97 Mechanical Ventilator 85 06/29/17 00:54 100.0 06/29/17 00:00 107 06/29/17 00:00 100.4 100 20 108/55 98 Mechanical Ventilator 85 06/29/17 00:00 85 06/28/17 23:40 122 27 85 06/28/17 23:00 107 19 91/53 97 Mechanical Ventilator 85 06/28/17 22:00 105 18 82/53 97 Mechanical Ventilator 85 06/28/17 22:00 87/52 06/28/17 21:31 100 18 85 06/28/17 21:00 104 18 87/52 97 Mechanical Ventilator 85 06/28/17 20:00 85 06/28/17 20:00 99.3 99 19 93/48 97 Mechanical Ventilator 85 06/28/17 20:00 98 06/28/17 19:37 96 19 85 06/28/17 19:00 102 20 85/52 97 Mechanical Ventilator 90 06/28/17 18:00 101 19 96/66 97 Mechanical Ventilator 90 06/28/17 17:12 103 16 90 06/28/17 17:00 103 20 80/54 97 Mechanical Ventilator 90 06/28/17 16:00 90 06/28/17 16:00 99.2 86 21 89/54 99 Mechanical Ventilator 90 06/28/17 16:00 105 06/28/17 15:11 109 17 90 06/28/17 15:00 109 20 87/57 99 Mechanical Ventilator 90 06/28/17 14:00 118 21 90/55 99 Mechanical Ventilator 100 06/28/17 13:22 108 16 90 06/28/17 13:14 99.0 06/28/17 13:00 104 20 86/40 99 Mechanical Ventilator 100 06/28/17 12:00 99.0 113 20 90/50 99 Mechanical Ventilator 90 06/28/17 12:00 112 06/28/17 12:00 90 06/28/17 11:00 104 20 94/71 99 Mechanical Ventilator 100 06/28/17 10:43 112 22 100 06/28/17 10:00 105 20 99/58 99 Mechanical Ventilator 100 06/28/17 09:48 99 06/28/17 09:00 101 21 90/58 99 Mechanical Ventilator 100 06/28/17 08:51 102 18 100 Laboratory Tests 06/28/17 14:05: Arterial Blood pH 7.420, Arterial Blood Partial Pressure CO2 41.1, Arterial Blood Partial Pressure O2 83.2, Arterial Blood HCO3 26.2H, Arterial Blood Oxygen Saturation 96.0, Arterial Blood Base Excess 1.6, Jeffry Test Positive 06/28/17 15:00: Body Fluid Source Ascitic fluid, Body Fluid Volume 24, Body Fluid Appearance Cloudy, Body Fluid RBC 4560, Body Fluid Total Nucleated Cells 145, Body Fluid Polynuclear WBCs (%) 86, Body Fluid Mononuclear WBCs (%) 14, Body Fluid Mesothelial Cells (%) 0, Body Fluid Glucose [Pending], Body Fluid Total Protein [Pending], Body Fluid Albumin [Pending] 06/29/17 07:00: White Blood Count 22.4*H, Red Blood Count 3.46L, Hemoglobin 9.7L, Hematocrit 31.0L, Mean Corpuscular Volume 89, Mean Corpuscular Hemoglobin 28.1, Mean Corpuscular Hemoglobin Concent 31.4L, Red Cell Distribution Width 17.7H, Platelet Count 326, Mean Platelet Volume 7.4, Neutrophils (%) (Auto) , Lymphocytes (%) (Auto) , Monocytes (%) (Auto) , Eosinophils (%) (Auto) , Basophils (%) (Auto) , Neutrophils % (Manual) [Pending], Lymphocytes % (Manual) [Pending], Platelet Estimate [Pending], Platelet Morphology [Pending], Sodium Level [Pending], Potassium Level [Pending], Chloride Level [Pending], Carbon Dioxide Level [Pending], Blood Urea Nitrogen [Pending], Creatinine [Pending], Estimat Glomerular Filtration Rate [Pending], Glucose Level [Pending], Uric Acid [Pending], Calcium Level [Pending], Phosphorus Level [Pending], Magnesium Level [Pending], Total Bilirubin [Pending], Aspartate Amino Transf (AST/SGOT) [ Pending], Alanine Aminotransferase (ALT/SGPT) [Pending], Alkaline Phosphatase [ Pending], C-Reactive Protein, Quantitative [Pending], Pro-B-Type Natriuretic Peptide [Pending], Total Protein [Pending], Albumin [Pending], Globulin [Pending ], Alpha Fetoprotein [Pending], Carcinoembryonic Antigen [Pending], CA 19-9 Antigen [Pending] 06/29/17 07:55: Arterial Blood pH 7.344L, Arterial Blood Partial Pressure CO2 41.0, Arterial Blood Partial Pressure O2 59.9L, Arterial Blood HCO3 21.8L, Arterial Blood Oxygen Saturation 87.6L, Arterial Blood Base Excess -3.6, Jeffry Test Positive Height (Feet): 5 Height (Inches): 4.00 Weight (Pounds): 139 General Appearance: no apparent distress EENT: other - intubated Respiratory/Chest: decreased breath sounds Abdomen: distended Objective no change in other PE TIARRA HOWARD Jun 29, 2017 08:40
[2017-06-29] MEDS: Digoxin 0.5mg/2ml Inj IVP SCH (08:45)
[2017-06-29] MEDS: Pantoprazole Inj IVP SCH ×2 (08:45→20:30)
[2017-06-29] MEDS: Calcium Gluconate 10% 1 GM in NS 110 ML IVPB SCH ×2 (08:45→20:30)
[2017-06-29] MEDS: Heparin 5000 units/ml inj SUBQ SCH ×2 (08:48→20:31)
[2017-06-29 08:53] LABS: CRP QUANT 35.1 mg/dL (< 0.5)
[2017-06-29] MEDS ORDERED: Dyna-Hex 2% Top Sol 8oz TOPIC SCH (09:00)
--- NOTE | 2017-06-29 09:45 | General Progress Note ---
Assessment/Plan Problem List: (1) Metastatic adenocarcinoma ICD Codes: C79.9 - Secondary malignant neoplasm of unspecified site SNOMED: 6107542, 796364248 (2) Ascites ICD Codes: R18.8 - Other ascites SNOMED: 917298071 (3) Transaminitis ICD Codes: R74.0 - Nonspecific elevation of levels of transaminase and lactic acid dehydrogenase [LDH] SNOMED: 993527337 (4) Respiratory failure ICD Codes: J96.90 - Respiratory failure, unspecified, unspecified whether with hypoxia or hypercapnia SNOMED: 501509962 (5) Anemia ICD Codes: D64.9 - Anemia, unspecified SNOMED: 837346151 Assessment/Plan s/p paracentesis NPO NGT to suction ABX fu labs fu oncology poor prognosis Subjective ROS Limited/Unobtainable: No Allergies: Coded Allergies: No Known Allergies (Unverified , 06/24/17) Objective Last 24 Hour Vital Signs Date Time Temp Pulse Resp B/P (MAP) Pulse Ox O2 Delivery O2 Flow Rate FiO2 06/29/17 08:45 111 06/29/17 08:22 100 06/29/17 08:00 100 06/29/17 07:10 117 16 80 06/29/17 07:00 103 20 99/62 96 Mechanical Ventilator 80 06/29/17 07:00 99/62 06/29/17 06:45 100 19 89/57 97 Mechanical Ventilator 80 06/29/17 06:30 101 19 89/57 96 Mechanical Ventilator 80 06/29/17 06:15 102 19 90/55 96 Mechanical Ventilator 80 06/29/17 06:00 103 17 103/53 96 Mechanical Ventilator 80 06/29/17 06:00 103/54 06/29/17 05:45 102 18 92/55 96 Mechanical Ventilator 80 06/29/17 05:36 102 18 80 06/29/17 05:30 101 18 103/68 97 Mechanical Ventilator 80 06/29/17 05:27 79/45 06/29/17 05:00 97 20 79/45 97 Mechanical Ventilator 80 06/29/17 04:00 99.5 103 18 94/65 94 Mechanical Ventilator 80 06/29/17 04:00 100 06/29/17 04:00 80 06/29/17 03:29 107 21 85 06/29/17 03:00 106 20 85/51 97 Mechanical Ventilator 85 06/29/17 02:00 99.7 103 20 91/45 96 Mechanical Ventilator 85 06/29/ 01:54 121 22 85 06/29/17 01:00 100.0 108 19 82/48 97 Mechanical Ventilator 85 16 00:54 100.0 06/29/17 00:00 107 06/29/17 00:00 100.4 100 20 108/55 98 Mechanical Ventilator 85 06/29/17 00:00 85 06/28/17 23:40 122 27 85 06/28/17 23:00 107 19 91/53 97 Mechanical Ventilator 85 06/28/17 22:00 105 18 82/53 97 Mechanical Ventilator 85 06/28/17 22:00 87/52 06/28/17 21:31 100 18 85 06/28/17 21:00 104 18 87/52 97 Mechanical Ventilator 85 06/28/17 20:00 85 06/28/17 20:00 99.3 99 19 93/48 97 Mechanical Ventilator 85 06/28/17 20:00 98 06/28/17 19:37 96 19 85 06/28/17 19:00 102 20 85/52 97 Mechanical Ventilator 90 06/28/17 18:00 101 19 96/66 97 Mechanical Ventilator 90 06/28/17 17:12 103 16 90 06/28/17 17:00 103 20 80/54 97 Mechanical Ventilator 90 06/28/17 16:00 90 06/28/17 16:00 99.2 86 21 89/54 99 Mechanical Ventilator 90 06/28/17 16:00 105 06/28/17 15:11 109 17 90 06/28/17 15:00 109 20 87/57 99 Mechanical Ventilator 90 06/28/17 14:00 118 21 90/55 99 Mechanical Ventilator 100 06/28/17 13:22 108 16 90 06/28/17 13:14 99.0 06/28/17 13:00 104 20 86/40 99 Mechanical Ventilator 100 06/28/17 12:00 99.0 113 20 90/50 99 Mechanical Ventilator 90 06/28/17 12:00 112 06/28/17 12:00 90 06/28/17 11:00 104 20 94/71 99 Mechanical Ventilator 100 06/28/17 10:43 112 22 100 06/28/17 10:00 105 20 99/58 99 Mechanical Ventilator 100 9/15/17 09:48 99 Intake and Output 06/29/17 06/30/17 19:00 07:00 Output Total 5 ml Balance -5 ml Output Urine Total 5 ml Laboratory Tests 06/28/17 14:05: Arterial Blood pH 7.420, Arterial Blood Partial Pressure CO2 41.1, Arterial Blood Partial Pressure O2 83.2, Arterial Blood HCO3 26.2H, Arterial Blood Oxygen Saturation 96.0, Arterial Blood Base Excess 1.6, Jeffry Test Positive 06/28/17 15:00: Body Fluid Source Ascitic fluid, Body Fluid Volume 24, Body Fluid Appearance Cloudy, Body Fluid RBC 4560, Body Fluid Total Nucleated Cells 145, Body Fluid Polynuclear WBCs (%) 86, Body Fluid Mononuclear WBCs (%) 14, Body Fluid Mesothelial Cells (%) 0, Body Fluid Glucose [Pending], Body Fluid Total Protein [Pending], Body Fluid Albumin [Pending] 06/29/17 07:00: White Blood Count 22.4*H, Red Blood Count 3.46L, Hemoglobin 9.7L, Hematocrit 31.0L, Mean Corpuscular Volume 89, Mean Corpuscular Hemoglobin 28.1, Mean Corpuscular Hemoglobin Concent 31.4L, Red Cell Distribution Width 17.7H, Platelet Count 326, Mean Platelet Volume 7.4, Neutrophils (%) (Auto) , Lymphocytes (%) (Auto) , Monocytes (%) (Auto) , Eosinophils (%) (Auto) , Basophils (%) (Auto) , Neutrophils % (Manual) [Pending], Lymphocytes % (Manual) [Pending], Platelet Estimate [Pending], Platelet Morphology [Pending], Sodium Level 140, Potassium Level 3.2L, Chloride Level 104, Carbon Dioxide Level 23, Anion Gap 13, Blood Urea Nitrogen 20, Creatinine 0.7, Estimat Glomerular Filtration Rate > 60, Glucose Level 158H, Uric Acid 3.9, Calcium Level 7.5L, Phosphorus Level 3.2, Magnesium Level 2.1, Total Bilirubin 0.4, Aspartate Amino Transf (AST/SGOT) 58H, Alanine Aminotransferase (ALT/SGPT) 31, Alkaline Phosphatase 247H, C-Reactive Protein, Quantitative 35.1H, Pro-B-Type Natriuretic Peptide 3195H, Total Protein 5.2L, Albumin 1.9L, Globulin 3.3, Albumin/Globulin Ratio 0.5L, Alpha Fetoprotein [Pending], Carcinoembryonic Antigen 14.0H, CA 19-9 Antigen > [id number] 06/29/17 07:55: Arterial Blood pH 7.344L, Arterial Blood Partial Pressure CO2 41.0, Arterial Blood Partial Pressure O2 59.9L, Arterial Blood HCO3 21.8L, Arterial Blood Oxygen Saturation 87.6L, Arterial Blood Base Excess -3.6, Jeffry Test Positive Height (Feet): 5 Height (Inches): 4.00 Weight (Pounds): 139 General Appearance: mild distress EENT: normal ENT inspection Neck: supple Cardiovascular: tachycardia Respiratory/Chest: decreased breath sounds Abdomen: soft, hypoactive bowel sounds, distended Extremities: non-tender JOSE D GRIFFIN Jun 29, 2017 09:45
[2017-06-29 09:52] LABS: BAND NEUTROPHILS % (MANUAL) 0 % (0-8); BASOPHILS % (MANUAL) 0 % (0-2); EOSINOPHILS % (MANUAL) 0 % (0-3); HYPOCHROMASIA 2+; LYMPHOCYTES % (MANUAL) 3 % (20-45); NEUTROPHILS % (MANUAL) 93 % (45-75); PLATELET ESTIMATE ADEQUATE; PLATELET MORPHOLOGY NORMAL; TOTAL CELLS COUNTED 100
[2017-06-29 09:53] LABS: ANISOCYTOSIS 1+; SCHISTOCYTES 1+
--- NOTE | 2017-06-29 11:44 | Diagnostic Imaging Report ---
Indication: Dyspnea Comparison: 06/28/17 A single view chest radiograph was obtained. Findings: Tubes and lines are stable and satisfactory. Extensive airspace opacification noted bilaterally with air bronchograms. Suspected left pleural effusion again noted. Heart size is difficult to assess because of extensive lung disease. 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
[2017-06-29 13:10] LABS: PROTEIN, BODY FLUID 2.3 g/dL (.)
[2017-06-29] MEDS ORDERED: NS 275ml ONE (16:05)
[2017-06-29] MEDS ORDERED: Tubing IV Secondary IV ONE (16:05)
[2017-06-29] MEDS ORDERED: D5W 275ml ONE (16:05)
[2017-06-29] MEDS: Morphine Sulfate 4mg/ml Inj IVP PRN (18:45)
--- NOTE | 2017-06-29 19:03 | Infectious Diseases Prog Note ---
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 Monitor CXR remove PICC and Tip for Cx vent support, wean as tolerated Subjective Allergies: Coded Allergies: No Known Allergies (Unverified , 06/24/17) Subjective fevers improved remains on vent repeat BCx pending Objective Vital Signs Last 24 Hour Vital Signs Date Time Temp Pulse Resp B/P (MAP) Pulse Ox O2 Delivery O2 Flow Rate FiO2 06/29/17 18:45 76/59 06/29/17 18:00 96 24 81/60 100 Mechanical Ventilator 100 06/29/17 17:30 89 24 91/56 100 Mechanical Ventilator 100 06/29/17 17:15 99 25 100 06/29/17 17:00 90 25 95/50 100 Mechanical Ventilator 100 06/29/17 16:30 99 24 87/51 100 Mechanical Ventilator 100 06/29/17 16:00 99.4 92 21 86/53 100 Mechanical Ventilator 100 06/29/17 16:00 89 06/29/17 16:00 100 06/29/17 15:30 92 21 98/62 100 Mechanical Ventilator 100 06/29/17 15:10 99 21 100 06/29/17 15:00 93 21 88/75 100 Mechanical Ventilator 100 06/29/17 14:30 90 19 93/75 100 Mechanical Ventilator 100 06/29/17 14:00 96 21 102/60 100 Mechanical Ventilator 100 06/29/17 13:30 93 21 91/52 100 Mechanical Ventilator 100 06/29/17 13:10 91 21 100 06/29/17 13:00 94 20 89/58 100 Mechanical Ventilator 100 9/16/17 12:45 94 20 100/62 100 Mechanical Ventilator 100 16/17 12:30 94 19 91/53 100 Mechanical Ventilator 100 16/17 12:15 96 18 101/68 100 Mechanical Ventilator 100 /16/17 12:00 97 /16/17 12:00 100 /16/17 12:00 97 19 101/62 100 Mechanical Ventilator 100 16/17 11:45 97 19 89/71 100 Mechanical Ventilator 100 16/17 11:30 96 19 85/56 100 Mechanical Ventilator 100 16/17 11:05 96 20 100 /16/17 11:00 96 21 102/60 100 Mechanical Ventilator 100 16/17 10:30 96 20 96/56 100 Mechanical Ventilator 100 16/17 10:00 97 21 91/59 100 Mechanical Ventilator 100 16/17 09:30 123 17 109/69 100 Mechanical Ventilator 100 16/17 09:10 91 17 100 16/17 09:00 122 18 116/84 97 Mechanical Ventilator 100 16/17 08:45 111 16/17 08:30 108 16 98/59 100 Mechanical Ventilator 100 16/17 08:22 100 16/17 08:00 113 /16/17 08:00 98/61 16/17 08:00 100 16/17 08:00 113 17 98/61 96 Mechanical Ventilator 100 16/17 07:45 116 17 105/65 93 Mechanical Ventilator 80 16/17 07:30 110 20 110/66 93 Mechanical Ventilator 80 16/17 07:15 107 21 119/84 90 Mechanical Ventilator 80 16/17 07:10 117 16 80 16/17 07:00 103 20 99/62 96 Mechanical Ventilator 80 16/17 07:00 99/62 16/17 06:45 100 19 89/57 97 Mechanical Ventilator 80 16/17 06:30 101 19 89/57 96 Mechanical Ventilator 80 /16/17 06:15 102 19 90/55 96 Mechanical Ventilator 80 /16/17 06:00 103 17 103/53 96 Mechanical Ventilator 80 /16/17 06:00 103/54 16/17 05:45 102 18 92/55 96 Mechanical Ventilator 80 16/17 05:36 102 18 80 9/16/17 05:30 101 18 103/68 97 Mechanical Ventilator 80 06/29/17 05:27 79/45 06/29/17 05:00 97 20 79/45 97 Mechanical Ventilator 80 06/29/17 04:00 99.5 103 18 94/65 94 Mechanical Ventilator 80 06/29/17 04:00 100 06/29/17 04:00 80 06/29/17 03:29 107 21 85 06/29/17 03:00 106 20 85/51 97 Mechanical Ventilator 85 06/29/17 02:00 99.7 103 20 91/45 96 Mechanical Ventilator 85 06/29/17 01:54 121 22 85 06/29/17 01:00 100.0 108 19 82/48 97 Mechanical Ventilator 85 06/29/17 00:54 100.0 06/29/17 00:00 107 06/29/17 00:00 100.4 100 20 108/55 98 Mechanical Ventilator 85 06/29/17 00:00 85 06/28/17 23:40 122 27 85 06/28/17 23:00 107 19 91/53 97 Mechanical Ventilator 85 06/28/17 22:00 105 18 82/53 97 Mechanical Ventilator 85 06/28/17 22:00 87/52 06/28/17 21:31 100 18 85 06/28/17 21:00 104 18 87/52 97 Mechanical Ventilator 85 06/28/17 20:00 85 06/28/17 20:00 99.3 99 19 93/48 97 Mechanical Ventilator 85 06/28/17 20:00 98 06/28/17 19:37 96 19 85 06/28/17 19:00 102 20 85/52 97 Mechanical Ventilator 90 Height (Feet): 5 Height (Inches): 4.00 Weight (Pounds): 139 General Appearance: no acute distress Respiratory/Chest: decreased breath sounds Cardiovascular: normal rate, regular rhythm Abdomen: normal bowel sounds, soft, non tender, non distended Microbiology Date/Time Source Procedure Growth Status 06/28/17 00:05 Stool Clostridium difficile Toxin Assay - Final Complete Laboratory Tests Test 06/29/17 07:00 06/29/17 07:55 White Blood Count 22.4 K/UL (4.8-10.8) *H Red Blood Count 3.46 M/UL (4.20-5.40) L Hemoglobin 9.7 G/DL (12.0-16.0) L Hematocrit 31.0 % (37.0-47.0) L Mean Corpuscular Volume 89 FL (80-99) Mean Corpuscular Hemoglobin 28.1 PG (27.0-31.0) Mean Corpuscular Hemoglobin Concent 31.4 G/DL (32.0-36.0) L Red Cell Distribution Width 17.7 % (11.6-14.8) H Platelet Count 326 K/UL (150-450) Mean Platelet Volume 7.4 FL (6.5-10.1) Neutrophils (%) (Auto) % (45.0-75.0) Lymphocytes (%) (Auto) % (20.0-45.0) Monocytes (%) (Auto) % (1.0-10.0) Eosinophils (%) (Auto) % (0.0-3.0) Basophils (%) (Auto) % (0.0-2.0) Differential Total Cells Counted 100 Neutrophils % (Manual) 93 % (45-75) H Lymphocytes % (Manual) 3 % (20-45) L Monocytes % (Manual) 4 % (1-10) Eosinophils % (Manual) 0 % (0-3) Basophils % (Manual) 0 % (0-2) Band Neutrophils 0 % (0-8) Platelet Estimate Adequate Platelet Morphology Normal Hypochromasia 2+ Anisocytosis 1+ Schistocytes 1+ Sodium Level 140 mEQ/L (135-145) Potassium Level 3.2 mEQ/L (3.4-4.9) L Chloride Level 104 mEQ/L (98-107) Carbon Dioxide Level 23 mEQ/L (20-30) Anion Gap 13 (5-15) Blood Urea Nitrogen 20 mg/dL (7-23) Creatinine 0.7 mg/dL (0.5-0.9) Estimat Glomerular Filtration Rate > 60 mL/min (>60) Glucose Level 158 mg/dL (74-106) H Uric Acid 3.9 mg/dL (3.0-7.5) Calcium Level 7.5 mg/dL (8.6-10.2) L Phosphorus Level 3.2 mg/dL (2.5-4.8) Magnesium Level 2.1 mg/dL (1.7-2.5) Total Bilirubin 0.4 mg/dL (0.0-1.2) Aspartate Amino Transf (AST/SGOT) 58 U/L (5-40) H Alanine Aminotransferase (ALT/SGPT) 31 U/L (3-33) Alkaline Phosphatase 247 U/L (35-104) H C-Reactive Protein, Quantitative 35.1 mg/dL (< 0.5) H Pro-B-Type Natriuretic Peptide 3195 pg/mL (0-125) H Total Protein 5.2 g/dL (6.6-8.7) L Albumin 1.9 g/dL (3.5-5.2) L Globulin 3.3 g/dL Albumin/Globulin Ratio 0.5 (1.0-2.7) L Alpha Fetoprotein Pending Carcinoembryonic Antigen 14.0 ng/mL H CA 19-9 Antigen > 54486 U/mL (< 37) H Arterial Blood pH 7.344 (7.350-7.450) Arterial Blood Partial Pressure CO2 41.0 mmHg (35.0-45.0) Arterial Blood Partial Pressure O2 59.9 mmHg (75.0-100.0) L Arterial Blood HCO3 21.8 mmol/L (22.0-26.0) L Arterial Blood Oxygen Saturation 87.6 % (92.0-98.0) L Arterial Blood Base Excess -3.6 Jeffry Test Positive Current Medications Medications (Trade) Dose Ordered Sig/Kwabena Route PRN Reason Start Time Stop Time Status Last Admin Dose Admin Acetaminophen (Tylenol) 650 mg Q4H PRN ORAL fever 06/28/17 11:00 07/28/17 10:59 06/29/17 00:24 Albuterol/ Ipratropium (DuoNeb 0.5-3(2.5)mg/3ml) 3 ml Q4H PRN HHN Shortness of Breath 06/24/17 21:30 06/29/17 21:29 Calcium Gluconate 1 gm/Sodium Chloride 120 ml @ 240 mls/hr Q12HR IVPB 06/29/17 09:00 07/26/17 13:59 06/29/17 08:45 Chlorhexidine Gluconate (Angelique-Hex 2%) 1 applic DAILY TOPIC 06/29/17 09:00 07/29/17 08:59 Dextrose 1,000 ml @ 50 mls/hr Q20H IV 06/26/17 11:30 07/26/17 11:29 06/29/17 14:00 Digoxin (Lanoxin) 0.25 mg DAILY IVP 06/28/17 09:30 07/28/17 09:29 06/29/17 08:45 Ergocalciferol (Drisdol) 50,000 intlu QWEEK ORAL 06/28/17 17:00 07/28/17 16:59 Ertapenem 1 gm/ Sodium Chloride 55 ml @ 110 mls/hr Q24H IV 06/25/17 02:00 07/01/17 23:59 06/29/17 02:01 Heparin Sodium (Porcine) (Heparin 5000 units/ml) 5,000 units EVERY 12 HOURS SUBQ 06/25/17 09:00 07/25/17 08:59 06/29/17 08:48 Heparin Sodium/ Sodium Chloride (Heparin 2000 units/Ns 1000ml premix) 2,000 unit ONCE PRN INJ PICC PLACEMENT 06/28/17 18:45 06/29/17 23:59 Lidocaine HCl (Xylocaine 1% 30ml) 30 ml ONCE PRN INJ PICC PLACEMENT 06/28/17 18:45 06/29/17 23:59 Lorazepam (Ativan 2mg/ml 1ml) 2 mg Q2H PRN IV For Anxiety 06/24/17 21:30 07/01/17 21:29 Metoclopramide HCl (Reglan) 10 mg Q8H PRN IVP Nausea & Vomiting 06/28/17 13:00 07/28/17 12:59 06/29/17 08:45 Micafungin Sodium 100 mg/Sodium Chloride 110 ml @ 110 mls/hr Q24H IVPB 06/26/17 20:00 07/03/17 19:59 06/28/17 19:58 Morphine Sulfate (Morphine Sulfate) 4 mg Q4H PRN IVP Severe Pain (Pain Scale 7-10) 06/24/17 21:30 07/01/17 21:29 06/29/17 18:45 Norepinephrine Bitartrate 4 mg/ Dextrose 254 ml @ 0 mls/hr Q24H IV 06/24/17 22:00 07/24/17 21:59 06/29/17 18:45 Ondansetron HCl (Zofran) 4 mg Q6H PRN IVP Nausea & Vomiting 06/24/17 21:30 07/24/17 21:29 Pantoprazole (Protonix) 40 mg Q12HR IVP 06/25/17 21:00 07/25/17 20:59 06/29/17 08:45 Sodium Bicarbonate (Sodium Bicarbonate) 50 ml ONCE PRN IV PICC LINE USE 06/28/17 18:45 06/29/17 23:59 ESTRELLITA SILVEIRA Jun 29, 2017 19:03
--- NOTE | 2017-06-29 19:26 | Pulmonolgy Critical Care Note ---
Critical Care - Asmt/Plan Problems: (1) Respiratory failure (2) Septic shock (3) Hypotension (4) Lactic acid acidosis (5) Metastatic adenocarcinoma Respiratory: monitor respiratory rate, adjust FIO2, CXR Cardiac: continue to monitor HR/BP Renal: F/U I&O Infectious Disease: check cultures Gastrointestinal: hold feedings Endocrine: monitor blood sugar, check TSH Neurologic: PRN Ativan, PRN Morphine Prophylaxis: Protonix Notes Reviewed: emergency crew supervisor Discussed with: nurses, consultants, correctional case records supervisordivisional merchandising manager - Objective Last 24 Hour Vital Signs Date Time Temp Pulse Resp B/P (MAP) Pulse Ox O2 Delivery O2 Flow Rate FiO2 06/29/17 19:15 99.4 06/29/17 19:00 112 26 109/80 99 Mechanical Ventilator 100 06/29/17 18:45 76/59 06/29/17 18:30 109 24 79/42 99 Mechanical Ventilator 100 06/29/17 18:00 96 24 81/60 100 Mechanical Ventilator 100 06/29/17 17:30 89 24 91/56 100 Mechanical Ventilator 100 06/29/17 17:15 99 25 100 06/29/17 17:00 90 25 95/50 100 Mechanical Ventilator 100 06/29/17 16:30 99 24 87/51 100 Mechanical Ventilator 100 06/29/17 16:00 99.4 92 21 86/53 100 Mechanical Ventilator 100 06/29/17 16:00 89 06/29/17 16:00 100 06/29/17 15:30 92 21 98/62 100 Mechanical Ventilator 100 06/29/17 15:10 99 21 100 06/29/17 15:00 93 21 88/75 100 Mechanical Ventilator 100 06/29/17 14:30 90 19 93/75 100 Mechanical Ventilator 100 06/29/17 14:00 96 21 102/60 100 Mechanical Ventilator 100 06/29/17 13:30 93 21 91/52 100 Mechanical Ventilator 100 06/29/17 13:10 91 21 100 06/29/17 13:00 94 20 89/58 100 Mechanical Ventilator 100 06/29/17 12:45 94 20 100/62 100 Mechanical Ventilator 100 06/29/17 12:30 94 19 91/53 100 Mechanical Ventilator 100 06/29/17 12:15 96 18 101/68 100 Mechanical Ventilator 100 06/29/17 12:00 97 06/29/17 12:00 100 9/16/17 12:00 97 19 101/62 100 Mechanical Ventilator 100 9/16/17 11:45 97 19 89/71 100 Mechanical Ventilator 100 /16/17 11:30 96 19 85/56 100 Mechanical Ventilator 100 /16/17 11:05 96 20 100 9/16/17 11:00 96 21 102/60 100 Mechanical Ventilator 100 /16/17 10:30 96 20 96/56 100 Mechanical Ventilator 100 16/17 10:00 97 21 91/59 100 Mechanical Ventilator 100 /16/17 09:30 123 17 109/69 100 Mechanical Ventilator 100 16/17 09:10 91 17 100 /16/17 09:00 122 18 116/84 97 Mechanical Ventilator 100 16/17 08:45 111 16/17 08:30 108 16 98/59 100 Mechanical Ventilator 100 16/17 08:22 100 16/17 08:00 113 /16/17 08:00 98/61 16/17 08:00 100 16/17 08:00 113 17 98/61 96 Mechanical Ventilator 100 16/17 07:45 116 17 105/65 93 Mechanical Ventilator 80 16/17 07:30 110 20 110/66 93 Mechanical Ventilator 80 16/17 07:15 107 21 119/84 90 Mechanical Ventilator 80 16/17 07:10 117 16 80 /16/17 07:00 103 20 99/62 96 Mechanical Ventilator 80 16/17 07:00 99/62 16/17 06:45 100 19 89/57 97 Mechanical Ventilator 80 16/17 06:30 101 19 89/57 96 Mechanical Ventilator 80 /16/17 06:15 102 19 90/55 96 Mechanical Ventilator 80 16/17 06:00 103 17 103/53 96 Mechanical Ventilator 80 /16/17 06:00 103/54 16/17 05:45 102 18 92/55 96 Mechanical Ventilator 80 /16/17 05:36 102 18 80 9/16/17 05:30 101 18 103/68 97 Mechanical Ventilator 80 /16/17 05:27 79/45 /16/17 05:00 97 20 79/45 97 Mechanical Ventilator 80 16/17 04:00 99.5 103 18 94/65 94 Mechanical Ventilator 80 9/16/17 04:00 100 06/29/17 04:00 80 06/29/17 03:29 107 21 85 06/29/17 03:00 106 20 85/51 97 Mechanical Ventilator 85 06/29/17 02:00 99.7 103 20 91/45 96 Mechanical Ventilator 85 06/29/17 01:54 121 22 85 06/29/17 01:00 100.0 108 19 82/48 97 Mechanical Ventilator 85 06/29/17 00:54 100.0 06/29/17 00:00 107 06/29/17 00:00 100.4 100 20 108/55 98 Mechanical Ventilator 85 06/29/17 00:00 85 06/28/17 23:40 122 27 85 06/28/17 23:00 107 19 91/53 97 Mechanical Ventilator 85 06/28/17 22:00 105 18 82/53 97 Mechanical Ventilator 85 06/28/17 22:00 87/52 06/28/17 21:31 100 18 85 06/28/17 21:00 104 18 87/52 97 Mechanical Ventilator 85 06/28/17 20:00 85 06/28/17 20:00 99.3 99 19 93/48 97 Mechanical Ventilator 85 06/28/17 20:00 98 06/28/17 19:37 96 19 85 Status: awake Condition: critical HEENT: atraumatic Neck: full ROM Lungs: chest wall tender Heart: HR/BP unstable Abdomen: soft, active bowel sounds Extremities: no C/C/E, edema Micro: Microbiology Date/Time Source Procedure Growth Status 06/28/17 00:05 Stool Clostridium difficile Toxin Assay - Final Complete Accucheck: 151 Critical Care - Subjective ROS Limited/Unobtainable: Yes Condition: critical EKG Rhythm: Sinus Rhythm FI02: 100 Vent Support Breath Rate: 16 Vent Support Mode: AC Vent Tidal Volume: 600 Sputum Amount: Small PEEP: 0.0 PIP: 48 Fluids: levophed I&O: Intake and Output 06/29/17 06/30/17 19:00 07:00 Intake Total 860.50 ml Output Total 205 ml Balance 655.50 ml IV Total 860.50 ml Output Urine Total 55 ml Stool Total 100 ml Gastric Drainage Total 50 ml CXR: extensive infiltrate ET-Tube: 7.5 ET Position: 22 Labs: Laboratory Tests Test 06/29/17 07:00 06/29/17 07:55 White Blood Count 22.4 K/UL (4.8-10.8) *H Red Blood Count 3.46 M/UL (4.20-5.40) L Hemoglobin 9.7 G/DL (12.0-16.0) L Hematocrit 31.0 % (37.0-47.0) L Mean Corpuscular Volume 89 FL (80-99) Mean Corpuscular Hemoglobin 28.1 PG (27.0-31.0) Mean Corpuscular Hemoglobin Concent 31.4 G/DL (32.0-36.0) L Red Cell Distribution Width 17.7 % (11.6-14.8) H Platelet Count 326 K/UL (150-450) Mean Platelet Volume 7.4 FL (6.5-10.1) Neutrophils (%) (Auto) % (45.0-75.0) Lymphocytes (%) (Auto) % (20.0-45.0) Monocytes (%) (Auto) % (1.0-10.0) Eosinophils (%) (Auto) % (0.0-3.0) Basophils (%) (Auto) % (0.0-2.0) Differential Total Cells Counted 100 Neutrophils % (Manual) 93 % (45-75) H Lymphocytes % (Manual) 3 % (20-45) L Monocytes % (Manual) 4 % (1-10) Eosinophils % (Manual) 0 % (0-3) Basophils % (Manual) 0 % (0-2) Band Neutrophils 0 % (0-8) Platelet Estimate Adequate Platelet Morphology Normal Hypochromasia 2+ Anisocytosis 1+ Schistocytes 1+ Sodium Level 140 mEQ/L (135-145) Potassium Level 3.2 mEQ/L (3.4-4.9) L Chloride Level 104 mEQ/L (98-107) Carbon Dioxide Level 23 mEQ/L (20-30) Anion Gap 13 (5-15) Blood Urea Nitrogen 20 mg/dL (7-23) Creatinine 0.7 mg/dL (0.5-0.9) Estimat Glomerular Filtration Rate > 60 mL/min (>60) Glucose Level 158 mg/dL (74-106) H Uric Acid 3.9 mg/dL (3.0-7.5) Calcium Level 7.5 mg/dL (8.6-10.2) L Phosphorus Level 3.2 mg/dL (2.5-4.8) Magnesium Level 2.1 mg/dL (1.7-2.5) Total Bilirubin 0.4 mg/dL (0.0-1.2) Aspartate Amino Transf (AST/SGOT) 58 U/L (5-40) H Alanine Aminotransferase (ALT/SGPT) 31 U/L (3-33) Alkaline Phosphatase 247 U/L (35-104) H C-Reactive Protein, Quantitative 35.1 mg/dL (< 0.5) H Pro-B-Type Natriuretic Peptide 3195 pg/mL (0-125) H Total Protein 5.2 g/dL (6.6-8.7) L Albumin 1.9 g/dL (3.5-5.2) L Globulin 3.3 g/dL Albumin/Globulin Ratio 0.5 (1.0-2.7) L Alpha Fetoprotein Pending Carcinoembryonic Antigen 14.0 ng/mL H CA 19-9 Antigen > 26036 U/mL (< 37) H Arterial Blood pH 7.344 (7.350-7.450) Arterial Blood Partial Pressure CO2 41.0 mmHg (35.0-45.0) Arterial Blood Partial Pressure O2 59.9 mmHg (75.0-100.0) L Arterial Blood HCO3 21.8 mmol/L (22.0-26.0) L Arterial Blood Oxygen Saturation 87.6 % (92.0-98.0) L Arterial Blood Base Excess -3.6 Jeffry Test Positive NIXON CHEATHAM Jun 29, 2017 19:26
[2017-06-29] MEDS: Micafungin 100 MG in NS 110 ML IVPB SCH (19:39)
[2017-06-29] MEDS ORDERED: Phenylephrine 10mg/ml 5ml vial IV ONE (20:41)
[2017-06-29] MEDS: Phenylephrine 50 MG in D5W 245 ML IV SCH (20:52)
[2017-06-29] MEDS ORDERED: Norepinephrine Bitartrate 8 MG in D5W 500ml 492 ML IV SCH (21:00)
[2017-06-29] MEDS: Norepinephrine Bitartrate 8 MG in D5W 500ml 492 ML IV SCH (23:45)
[2017-06-30] VITALS (22 sets, daily range): BP systolic 31–105; BP diastolic 12–75
[2017-06-30] MEDS: Phenylephrine 50 MG in D5W 245 ML IV SCH ×2 (00:34→04:45)
[2017-06-30] MEDS: Ertapenem 1 GM in NS 55 ML IV SCH (01:31)
[2017-06-30] MEDS: Acetaminophen 650mg/20.3ml ORAL PRN (01:41)
[2017-06-30 05:28] LABS: MEAN CORPUSCULAR VOLUME 93 FL (80-99); MEAN PLATELET VOLUME 7.5 FL (6.5-10.1); PLATELET COUNT 101 K/UL (150-450); RED CELL DISTRIBUTION WIDTH 19.3 % (11.6-14.8); WHITE BLOOD COUNT 19.9 K/UL (4.8-10.8)
[2017-06-30 05:48] LABS: ALBUMIN/GLOBULIN RATIO 0.6 (1.0-2.7); CALCIUM 7.1 mg/dL (8.6-10.2); CREATININE 1.1 mg/dL (0.5-0.9); GLOMERULAR FILTRATION RATE 51.3 mL/min (>60); MAGNESIUM 1.9 mg/dL (1.7-2.5); PHOSPHORUS 5.9 mg/dL (2.5-4.8); POTASSIUM 4.1 mEQ/L (3.4-4.9); TOTAL PROTEIN 4.2 g/dL (6.6-8.7)
[2017-06-30] MEDS: Norepinephrine Bitartrate 8 MG in D5W 500ml 492 ML IV SCH (05:57)
--- NOTE | 2017-06-30 06:48 | Infectious Diseases Prog Note ---
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 Monitor CXR remove PICC and Tip for Cx when able CT A/P if stabilizes vent support, wean as tolerated poor overall prognosis, consider comfort care d/w RN Subjective Allergies: Coded Allergies: No Known Allergies (Unverified , 06/24/17) Subjective high fever, now unresponsive, maxed out on 2 pressors awaiting PICC change Objective Vital Signs Last 24 Hour Vital Signs Date Time Temp Pulse Resp B/P (MAP) Pulse Ox O2 Delivery O2 Flow Rate FiO2 06/30/17 06:30 117 16 32/22 100 Mechanical Ventilator 100 06/30/17 06:00 125 18 /17 99 Mechanical Ventilator 100 06/30/17 06:00 50/17 06/30/17 05:57 64/26 06/30/17 05:35 131 16 100 06/30/17 05:30 126 16 50/12 95 Mechanical Ventilator 100 06/30/17 05:00 127 13 76/60 94 Mechanical Ventilator 100 06/30/17 05:00 76/60 06/30/17 04:45 118 93/29 06/30/17 04:30 104.9 127 17 93/29 95 Mechanical Ventilator 100 06/30/17 04:00 82/58 06/30/17 04:00 127 16 82/58 95 Mechanical Ventilator 100 06/30/17 04:00 100 06/30/17 03:31 118 06/30/17 03:30 128 17 88/47 95 Mechanical Ventilator 100 06/30/17 03:22 115 21 100 06/30/17 03:00 128 17 46/30 93 Mechanical Ventilator 100 06/30/17 03:00 93/46 06/30/17 02:30 129 17 82/45 92 Mechanical Ventilator 100 06/30/17 02:17 101.5 06/30/17 02:00 128 17 80/20 91 Mechanical Ventilator 100 06/30/17 01:32 131 23 100 06/30/17 01:30 131 18 100/75 92 Mechanical Ventilator 100 06/30/17 01:00 132 19 99/47 92 Mechanical Ventilator 100 06/30/17 01:00 99/47 06/30/17 00:34 134 93/53 06/30/17 00:30 134 20 93/53 93 Mechanical Ventilator 100 06/30/17 00:00 101.2 136 20 105/52 94 Mechanical Ventilator 100 06/30/17 00:00 105/52 06/29/17 23:51 136 06/29/17 23:45 104/66 06/29/17 23:45 138 21 142/104 95 Mechanical Ventilator 100 06/29/17 23:30 141 20 104/66 95 Mechanical Ventilator 100 06/29/17 23:21 140 22 100 06/29/17 23:15 141 20 103/74 94 Mechanical Ventilator 100 06/29/17 23:00 106/90 06/29/17 23:00 139 19 100/60 94 Mechanical Ventilator 100 06/29/17 22:45 159 19 96/77 93 Mechanical Ventilator 100 06/29/17 22:30 156 19 95/61 93 Mechanical Ventilator 100 06/29/17 22:15 162 21 98/60 93 Mechanical Ventilator 100 06/29/17 22:00 98/60 06/29/17 21:45 162 21 106/74 96 Mechanical Ventilator 100 06/29/17 21:30 138 24 102/58 98 Mechanical Ventilator 100 06/29/17 21:28 112/93 06/29/17 21:15 123 24 106/74 97 Mechanical Ventilator 100 06/29/17 21:09 149 23 100 06/29/17 21:00 149 23 91/58 97 Mechanical Ventilator 100 06/29/17 21:00 91/58 06/29/17 20:52 154 39/16 06/29/17 20:45 162 19 39/16 96 Mechanical Ventilator 100 06/29/17 20:30 152 19 54/34 97 Mechanical Ventilator 100 9/16/17 20:30 54/34 9/16/17 20:15 133 20 79/33 97 Mechanical Ventilator 100 9/16/17 20:00 131 9/16/17 20:00 135 20 46/25 99 Mechanical Ventilator 100 9/16/17 20:00 52/28 9/16/17 20:00 100 9/16/17 19:45 123 22 50/29 99 Mechanical Ventilator 100 9/16/17 19:30 100.4 128 22 50/29 99 Mechanical Ventilator 100 9/16/17 19:30 133 22 100 9/16/17 19:15 99.4 9/16/17 19:00 112 26 109/80 99 Mechanical Ventilator 100 9/16/17 18:45 76/59 9/16/17 18:30 109 24 79/42 99 Mechanical Ventilator 100 9/16/17 18:00 96 24 81/60 100 Mechanical Ventilator 100 16/17 17:30 89 24 91/56 100 Mechanical Ventilator 100 16/17 17:15 99 25 100 916/17 17:00 90 25 95/50 100 Mechanical Ventilator 100 16/17 16:30 99 24 87/51 100 Mechanical Ventilator 100 /16/17 16:00 99.4 92 21 86/53 100 Mechanical Ventilator 100 /16/17 16:00 89 /16/17 16:00 100 /16/17 15:30 92 21 98/62 100 Mechanical Ventilator 100 /16/17 15:10 99 21 100 9/16/17 15:00 93 21 88/75 100 Mechanical Ventilator 100 /16/17 14:30 90 19 93/75 100 Mechanical Ventilator 100 16/17 14:00 96 21 102/60 100 Mechanical Ventilator 100 916/17 13:30 93 21 91/52 100 Mechanical Ventilator 100 9/16/17 13:10 91 21 100 9/16/17 13:00 94 20 89/58 100 Mechanical Ventilator 100 9/16/17 12:45 94 20 100/62 100 Mechanical Ventilator 100 9/16/17 12:30 94 19 91/53 100 Mechanical Ventilator 100 9/16/17 12:15 96 18 101/68 100 Mechanical Ventilator 100 9/16/17 12:00 97 9/16/17 12:00 100 9/16/17 12:00 97 19 101/62 100 Mechanical Ventilator 100 06/29/17 11:45 97 19 89/71 100 Mechanical Ventilator 100 06/29/17 11:30 96 19 85/56 100 Mechanical Ventilator 100 06/29/17 11:05 96 20 100 06/29/17 11:00 96 21 102/60 100 Mechanical Ventilator 100 06/29/17 10:30 96 20 96/56 100 Mechanical Ventilator 100 06/29/17 10:00 97 21 91/59 100 Mechanical Ventilator 100 06/29/17 09:30 123 17 109/69 100 Mechanical Ventilator 100 06/29/17 09:10 91 17 100 06/29/17 09:00 122 18 116/84 97 Mechanical Ventilator 100 06/29/17 08:45 111 06/29/17 08:30 108 16 98/59 100 Mechanical Ventilator 100 06/29/17 08:22 100 06/29/17 08:00 113 06/29/17 08:00 98/61 06/29/17 08:00 100 06/29/17 08:00 113 17 98/61 96 Mechanical Ventilator 100 06/29/17 07:45 116 17 105/65 93 Mechanical Ventilator 80 06/29/17 07:30 110 20 110/66 93 Mechanical Ventilator 80 06/29/17 07:15 107 21 119/84 90 Mechanical Ventilator 80 06/29/17 07:10 117 16 80 06/29/17 07:00 103 20 99/62 96 Mechanical Ventilator 80 06/29/17 07:00 99/62 06/29/17 06:45 100 19 89/57 97 Mechanical Ventilator 80 Height (Feet): 5 Height (Inches): 4.00 Weight (Pounds): 139 General Appearance: other - intubated, unresponsive Respiratory/Chest: decreased breath sounds Cardiovascular: regular rhythm, tachycardia Abdomen: normal bowel sounds, soft, non tender, non distended Microbiology Date/Time Source Procedure Growth Status 06/28/17 00:05 Stool Clostridium difficile Toxin Assay - Final Complete Laboratory Tests Test 06/29/17 07:00 06/29/17 07:55 06/30/17 04:45 White Blood Count 22.4 K/UL (4.8-10.8) *H 19.9 K/UL (4.8-10.8) H Red Blood Count 3.46 M/UL (4.20-5.40) L 3.40 M/UL (4.20-5.40) L Hemoglobin 9.7 G/DL (12.0-16.0) L 9.9 G/DL (12.0-16.0) L Hematocrit 31.0 % (37.0-47.0) L 31.8 % (37.0-47.0) L Mean Corpuscular Volume 89 FL (80-99) 93 FL (80-99) Mean Corpuscular Hemoglobin 28.1 PG (27.0-31.0) 29.0 PG (27.0-31.0) Mean Corpuscular Hemoglobin Concent 31.4 G/DL (32.0-36.0) L 31.0 G/DL (32.0-36.0) L Red Cell Distribution Width 17.7 % (11.6-14.8) H 19.3 % (11.6-14.8) H Platelet Count 326 K/UL (150-450) 101 K/UL (150-450) #L Mean Platelet Volume 7.4 FL (6.5-10.1) 7.5 FL (6.5-10.1) Neutrophils (%) (Auto) % (45.0-75.0) % (45.0-75.0) Lymphocytes (%) (Auto) % (20.0-45.0) % (20.0-45.0) Monocytes (%) (Auto) % (1.0-10.0) % (1.0-10.0) Eosinophils (%) (Auto) % (0.0-3.0) % (0.0-3.0) Basophils (%) (Auto) % (0.0-2.0) % (0.0-2.0) Differential Total Cells Counted 100 Neutrophils % (Manual) 93 % (45-75) H Pending Lymphocytes % (Manual) 3 % (20-45) L Pending Monocytes % (Manual) 4 % (1-10) Eosinophils % (Manual) 0 % (0-3) Basophils % (Manual) 0 % (0-2) Band Neutrophils 0 % (0-8) Platelet Estimate Adequate Pending Platelet Morphology Normal Pending Hypochromasia 2+ Anisocytosis 1+ Schistocytes 1+ Sodium Level 140 mEQ/L (135-145) 132 mEQ/L (135-145) L Potassium Level 3.2 mEQ/L (3.4-4.9) L 4.1 mEQ/L (3.4-4.9) Chloride Level 104 mEQ/L (98-107) 98 mEQ/L (98-107) Carbon Dioxide Level 23 mEQ/L (20-30) 12 mEQ/L (20-30) L Anion Gap 13 (5-15) 22 (5-15) H Blood Urea Nitrogen 20 mg/dL (7-23) 23 mg/dL (7-23) Creatinine 0.7 mg/dL (0.5-0.9) 1.1 mg/dL (0.5-0.9) #H Estimat Glomerular Filtration Rate > 60 mL/min (>60) 51.3 mL/min (>60) Glucose Level 158 mg/dL (74-106) H 262 mg/dL (74-106) #H Uric Acid 3.9 mg/dL (3.0-7.5) Calcium Level 7.5 mg/dL (8.6-10.2) L 7.1 mg/dL (8.6-10.2) L Phosphorus Level 3.2 mg/dL (2.5-4.8) 5.9 mg/dL (2.5-4.8) H Magnesium Level 2.1 mg/dL (1.7-2.5) 1.9 mg/dL (1.7-2.5) Total Bilirubin 0.4 mg/dL (0.0-1.2) 0.6 mg/dL (0.0-1.2) Aspartate Amino Transf (AST/SGOT) 58 U/L (5-40) H 871 U/L (5-40) H Alanine Aminotransferase (ALT/SGPT) 31 U/L (3-33) 247 U/L (3-33) H Alkaline Phosphatase 247 U/L (35-104) H 294 U/L (35-104) H C-Reactive Protein, Quantitative 35.1 mg/dL (< 0.5) H Pro-B-Type Natriuretic Peptide 3195 pg/mL (0-125) H Total Protein 5.2 g/dL (6.6-8.7) L 4.2 g/dL (6.6-8.7) L Albumin 1.9 g/dL (3.5-5.2) L 1.7 g/dL (3.5-5.2) L Globulin 3.3 g/dL 2.5 g/dL Albumin/Globulin Ratio 0.5 (1.0-2.7) L 0.6 (1.0-2.7) L Alpha Fetoprotein Pending Carcinoembryonic Antigen 14.0 ng/mL H CA 19-9 Antigen > 13794 U/mL (< 37) H Arterial Blood pH 7.344 (7.350-7.450) Arterial Blood Partial Pressure CO2 41.0 mmHg (35.0-45.0) Arterial Blood Partial Pressure O2 59.9 mmHg (75.0-100.0) L Arterial Blood HCO3 21.8 mmol/L (22.0-26.0) L Arterial Blood Oxygen Saturation 87.6 % (92.0-98.0) L Arterial Blood Base Excess -3.6 Jeffry Test Positive Current Medications Medications (Trade) Dose Ordered Sig/Kwabena Route PRN Reason Start Time Stop Time Status Last Admin Dose Admin Acetaminophen (Tylenol) 650 mg Q4H PRN ORAL fever 06/28/17 11:00 07/28/17 10:59 06/30/17 01:41 Calcium Gluconate 1 gm/Sodium Chloride 120 ml @ 240 mls/hr Q12HR IVPB 06/29/17 09:00 07/26/17 13:59 06/29/17 20:30 Chlorhexidine Gluconate (Angelique-Hex 2%) 1 applic DAILY TOPIC 06/29/17 09:00 07/29/17 08:59 Dextrose 1,000 ml @ 50 mls/hr Q20H IV 06/26/17 11:30 07/26/17 11:29 06/29/17 14:00 Digoxin (Lanoxin) 0.25 mg DAILY IVP 06/28/17 09:30 07/28/17 09:29 06/29/17 08:45 Ergocalciferol (Drisdol) 50,000 intlu QWEEK ORAL 06/28/17 17:00 07/28/17 16:59 Ertapenem 1 gm/ Sodium Chloride 55 ml @ 110 mls/hr Q24H IV 06/25/17 02:00 07/01/17 23:59 06/30/17 01:31 Heparin Sodium (Porcine) (Heparin 5000 units/ml) 5,000 units EVERY 12 HOURS SUBQ 06/25/17 09:00 07/25/17 08:59 06/29/17 20:31 Lorazepam (Ativan 2mg/ml 1ml) 2 mg Q2H PRN IV For Anxiety 06/24/17 21:30 07/01/17 21:29 Metoclopramide HCl (Reglan) 10 mg Q8H PRN IVP Nausea & Vomiting 06/28/17 13:00 07/28/17 12:59 06/29/17 08:45 Micafungin Sodium 100 mg/Sodium Chloride 110 ml @ 110 mls/hr Q24H IVPB 06/26/17 20:00 07/03/17 19:59 06/29/17 19:39 Morphine Sulfate (Morphine Sulfate) 4 mg Q4H PRN IVP Severe Pain (Pain Scale 7-10) 06/24/17 21:30 07/01/17 21:29 06/29/17 18:45 Norepinephrine Bitartrate 8 mg/ Dextrose 500 ml @ 0 mls/hr Q24H IV 06/29/17 23:00 07/29/17 22:59 06/30/17 05:57 Ondansetron HCl (Zofran) 4 mg Q6H PRN IVP Nausea & Vomiting 06/24/17 21:30 07/24/17 21:29 Pantoprazole (Protonix) 40 mg Q12HR IVP 06/25/17 21:00 07/25/17 20:59 06/29/17 20:30 Phenylephrine HCl 50 mg/Dextrose 250 ml @ 0 mls/hr Q24H IV 06/29/17 21:00 07/29/17 20:59 06/30/17 04:45 ESTRELLITA SILVEIRA Jun 30, 2017 06:48
[2017-06-30] MEDS: Digoxin 0.5mg/2ml Inj IVP SCH (09:00)
[2017-06-30 09:14] LABS: BAND NEUTROPHILS % (MANUAL) 7 % (0-8); BASOPHILS % (MANUAL) 0 % (0-2); EOSINOPHILS % (MANUAL) 0 % (0-3); LYMPHOCYTES % (MANUAL) 8 % (20-45); METAMYELOCYTES % 4 % (0-0); NEUTROPHILS % (MANUAL) 78 % (45-75); NUCLEATED RED BLOOD CELLS 9 /100 WBC; PLATELET ESTIMATE DECREASED; PLATELET MORPHOLOGY NORMAL; TOTAL CELLS COUNTED 100
[2017-06-30 09:15] LABS: ANISOCYTOSIS 1+; BURR CELLS 1+; HYPOCHROMASIA 1+; MACROCYTES 1+; OVALOCYTES 1+
[2017-06-30 09:16] LABS: BLISTER CELL 1+
[2017-06-30] MEDS: Pantoprazole Inj IVP SCH (09:49)
[2017-06-30] MEDS: Calcium Gluconate 10% 1 GM in NS 110 ML IVPB SCH (09:49)
[2017-06-30] MEDS: Heparin 5000 units/ml inj SUBQ SCH (09:49)
--- NOTE | 2017-06-30 10:08 | General Progress Note ---
Assessment/Plan Problem List: (1) Metastatic adenocarcinoma ICD Codes: C79.9 - Secondary malignant neoplasm of unspecified site SNOMED: 3215022, 515646905 (2) Ascites ICD Codes: R18.8 - Other ascites SNOMED: 084985287 (3) Transaminitis ICD Codes: R74.0 - Nonspecific elevation of levels of transaminase and lactic acid dehydrogenase [LDH] SNOMED: 357016058 (4) Respiratory failure ICD Codes: J96.90 - Respiratory failure, unspecified, unspecified whether with hypoxia or hypercapnia SNOMED: 890452028 (5) Anemia ICD Codes: D64.9 - Anemia, unspecified SNOMED: 885478995 (6) Shock liver ICD Codes: K72.00 - Acute and subacute hepatic failure without coma SNOMED: 688880208 Assessment/Plan s/p paracentesis NPO NGT to suction ABX fu labs fu oncology poor prognosis Subjective ROS Limited/Unobtainable: No Allergies: Coded Allergies: No Known Allergies (Unverified , 06/24/17) Subjective on levofed and kandis DNR now Objective Last 24 Hour Vital Signs Date Time Temp Pulse Resp B/P (MAP) Pulse Ox O2 Delivery O2 Flow Rate FiO2 06/30/17 09:41 73 16 100 06/30/17 09:00 58 06/30/17 08:30 79 16 37/14 100 Mechanical Ventilator 100 06/30/17 08:00 99.9 89 16 60/34 100 Mechanical Ventilator 100 06/30/17 08:00 100 06/30/17 08:00 102 06/30/17 07:30 101.8 103 17 68/25 100 Mechanical Ventilator 100 06/30/17 07:03 123 16 100 06/30/17 07:00 113 17 51/22 100 Mechanical Ventilator 100 06/30/17 06:30 117 16 32/22 100 Mechanical Ventilator 100 06/30/17 06:00 125 18 50/17 99 Mechanical Ventilator 100 06/30/17 06:00 50/17 06/30/17 05:57 64/26 06/30/17 05:35 131 16 100 06/30/17 05:30 126 16 50/12 95 Mechanical Ventilator 100 06/30/17 05:00 127 13 76/60 94 Mechanical Ventilator 100 06/30/17 05:00 76/60 06/30/17 04:45 118 93/29 06/30/17 04:30 104.9 127 17 93/29 95 Mechanical Ventilator 100 06/30/17 04:00 82/58 06/30/17 04:00 127 16 82/58 95 Mechanical Ventilator 100 06/30/17 04:00 100 06/30/17 03:31 118 06/30/17 03:30 128 17 88/47 95 Mechanical Ventilator 100 06/30/17 03:22 115 21 100 06/30/17 03:00 128 17 46/30 93 Mechanical Ventilator 100 06/30/17 03:00 93/46 06/30/17 02:30 129 17 82/45 92 Mechanical Ventilator 100 06/30/17 02:17 101.5 06/30/17 02:00 128 17 80/20 91 Mechanical Ventilator 100 06/30/17 01:32 131 23 100 06/30/17 01:30 131 18 100/75 92 Mechanical Ventilator 100 06/30/17 01:00 132 19 99/47 92 Mechanical Ventilator 100 06/30/17 01:00 99/47 06/30/17 00:34 134 93/53 06/30/17 00:30 134 20 93/53 93 Mechanical Ventilator 100 06/30/17 00:00 101.2 136 20 105/52 94 Mechanical Ventilator 100 06/30/17 00:00 105/52 06/29/17 23:51 136 06/29/17 23:45 104/66 06/29/17 23:45 138 21 142/104 95 Mechanical Ventilator 100 06/29/17 23:30 141 20 104/66 95 Mechanical Ventilator 100 06/29/17 23:21 140 22 100 06/29/17 23:15 141 20 103/74 94 Mechanical Ventilator 100 06/29/17 23:00 106/90 06/29/17 23:00 139 19 100/60 94 Mechanical Ventilator 100 06/29/17 22:45 159 19 96/77 93 Mechanical Ventilator 100 06/29/17 22:30 156 19 95/61 93 Mechanical Ventilator 100 06/29/17 22:15 162 21 98/60 93 Mechanical Ventilator 100 06/29/17 22:00 98/60 06/29/17 21:45 162 21 106/74 96 Mechanical Ventilator 100 06/29/17 21:30 138 24 102/58 98 Mechanical Ventilator 100 9/16/17 21:28 112/93 16/17 21:15 123 24 106/74 97 Mechanical Ventilator 100 16/17 21:09 149 23 100 16/17 21:00 149 23 91/58 97 Mechanical Ventilator 100 16/17 21:00 91/58 16/17 20:52 154 39/16 916/17 20:45 162 19 39/16 96 Mechanical Ventilator 100 16/17 20:30 152 19 54/34 97 Mechanical Ventilator 100 16/17 20:30 54/34 16/17 20:15 133 20 79/33 97 Mechanical Ventilator 100 16/17 20:00 131 16/17 20:00 135 20 46/25 99 Mechanical Ventilator 100 16/17 20:00 52/28 1617 20:00 100 16/17 19:45 123 22 50/29 99 Mechanical Ventilator 100 16/17 19:30 100.4 128 22 50/29 99 Mechanical Ventilator 100 1617 19:30 133 22 100 16/17 19:15 99.4 16/17 19:00 112 26 109/80 99 Mechanical Ventilator 100 16/17 18:45 76/59 16/17 18:30 109 24 79/42 99 Mechanical Ventilator 100 16/17 18:00 96 24 81/60 100 Mechanical Ventilator 100 16/17 17:30 89 24 91/56 100 Mechanical Ventilator 100 16/17 17:15 99 25 100 16/17 17:00 90 25 95/50 100 Mechanical Ventilator 100 16/17 16:30 99 24 87/51 100 Mechanical Ventilator 100 16/17 16:00 99.4 92 21 86/53 100 Mechanical Ventilator 100 16/17 16:00 89 16/17 16:00 100 16/17 15:30 92 21 98/62 100 Mechanical Ventilator 100 916/17 15:10 99 21 100 16/17 15:00 93 21 88/75 100 Mechanical Ventilator 100 16/17 14:30 90 19 93/75 100 Mechanical Ventilator 100 16/17 14:00 96 21 102/60 100 Mechanical Ventilator 100 16/17 13:30 93 21 91/52 100 Mechanical Ventilator 100 9/16/17 13:10 91 21 100 06/29/17 13:00 94 20 89/58 100 Mechanical Ventilator 100 06/29/17 12:45 94 20 100/62 100 Mechanical Ventilator 100 06/29/17 12:30 94 19 91/53 100 Mechanical Ventilator 100 06/29/17 12:15 96 18 101/68 100 Mechanical Ventilator 100 06/29/17 12:00 97 06/29/17 12:00 100 06/29/17 12:00 97 19 101/62 100 Mechanical Ventilator 100 06/29/17 11:45 97 19 89/71 100 Mechanical Ventilator 100 06/29/17 11:30 96 19 85/56 100 Mechanical Ventilator 100 06/29/17 11:05 96 20 100 06/29/17 11:00 96 21 102/60 100 Mechanical Ventilator 100 06/29/17 10:30 96 20 96/56 100 Mechanical Ventilator 100 Intake and Output 06/30/17 07/01/17 19:00 07:00 Output Total 0 ml Balance 0 ml Output Urine Total 0 ml Laboratory Tests 06/30/17 04:45: White Blood Count 19.9H, Red Blood Count 3.40L, Hemoglobin 9.9L, Hematocrit 31.8L, Mean Corpuscular Volume 93, Mean Corpuscular Hemoglobin 29.0, Mean Corpuscular Hemoglobin Concent 31.0L, Red Cell Distribution Width 19.3H, Platelet Count 101#L, Mean Platelet Volume 7.5, Neutrophils (%) (Auto) , Lymphocytes (%) (Auto) , Monocytes (%) (Auto) , Eosinophils (%) (Auto) , Basophils (%) (Auto) , Differential Total Cells Counted 100, Neutrophils % ( Manual) 78H, Lymphocytes % (Manual) 8L, Monocytes % (Manual) 3, Eosinophils % ( Manual) 0, Basophils % (Manual) 0, Metamyelocytes % 4H, Band Neutrophils 7, Nucleated Red Blood Cells 9, Platelet Estimate DecreasedL, Platelet Morphology Normal, Hypochromasia 1+, Anisocytosis 1+, Macrocytosis 1+, Ovalocytes 1+, Blister Cells 1+, [place] Cells 1+, Sodium Level 132L, Potassium Level 4.1, Chloride Level 98, Carbon Dioxide Level 12L, Anion Gap 22H, Blood Urea Nitrogen 23, Creatinine 1.1#H, Estimat Glomerular Filtration Rate 51.3, Glucose Level 262 #H, Calcium Level 7.1L, Phosphorus Level 5.9H, Magnesium Level 1.9, Total Bilirubin 0.6, Aspartate Amino Transf (AST/SGOT) 871H, Alanine Aminotransferase (ALT/SGPT) 247H, Alkaline Phosphatase 294H, Total Protein 4.2L, Albumin 1.7L, Globulin 2.5, Albumin/Globulin Ratio 0.6L Height (Feet): 5 Height (Inches): 4.00 Weight (Pounds): 139 General Appearance: lethargic EENT: TMs normal Neck: supple Cardiovascular: tachycardia Respiratory/Chest: decreased breath sounds Abdomen: hypoactive bowel sounds, distended Extremities: non-tender JOSE D GRIFFIN Jun 30, 2017 10:08
--- NOTE | 2017-06-30 10:40 | Pulmonolgy Critical Care Note ---
Critical Care - Asmt/Plan Problems: (1) Respiratory failure (2) Septic shock (3) Hypotension (4) Lactic acid acidosis (5) Metastatic adenocarcinoma Respiratory: adjust tidal volume, CXR Cardiac: continue to monitor HR/BP Renal: F/U I&O, keep IV fluid, check electrolytes Infectious Disease: check cultures, continue antibiotics Gastrointestinal: continue feedings/current rate Endocrine: monitor blood sugar, check HgA1C, continue sliding scale insulin Hematologic: monitor H/H, transfuse if hgb<8.5 Neurologic: PRN Morphine, keep patient comfortable Affect: PRN ativan Prophylaxis: Protonix, Heparin Notes Reviewed: cardio, renal Discussed with: nurses, consultants, correctional case records supervisormarketing compliance manager - Objective Last 24 Hour Vital Signs Date Time Temp Pulse Resp B/P (MAP) Pulse Ox O2 Delivery O2 Flow Rate FiO2 06/30/17 10:00 41 16 51/32 100 Mechanical Ventilator 100 06/30/17 09:41 73 16 100 06/30/17 09:30 62 16 45/32 100 Mechanical Ventilator 100 06/30/17 09:00 58 06/30/17 09:00 98.9 63 16 56/24 100 Mechanical Ventilator 100 06/30/17 08:30 79 16 37/14 100 Mechanical Ventilator 100 06/30/17 08:00 99.9 89 16 60/34 100 Mechanical Ventilator 100 06/30/17 08:00 100 06/30/17 08:00 102 06/30/17 07:30 101.8 103 17 68/25 100 Mechanical Ventilator 100 06/30/17 07:03 123 16 100 06/30/17 07:00 113 17 51/22 100 Mechanical Ventilator 100 06/30/17 06:30 117 16 32/22 100 Mechanical Ventilator 100 06/30/17 06:00 125 18 50/17 99 Mechanical Ventilator 100 06/30/17 06:00 50/17 06/30/17 05:57 64/26 06/30/17 05:35 131 16 100 06/30/17 05:30 126 16 50/12 95 Mechanical Ventilator 100 06/30/17 05:00 127 13 76/60 94 Mechanical Ventilator 100 06/30/17 05:00 76/60 06/30/17 04:45 118 93/29 06/30/17 04:30 104.9 127 17 93/29 95 Mechanical Ventilator 100 06/30/17 04:00 82/58 9/17/17 04:00 127 16 82/58 95 Mechanical Ventilator 100 06/30/17 04:00 100 06/30/17 03:31 118 06/30/17 03:30 128 17 88/47 95 Mechanical Ventilator 100 06/30/17 03:22 115 21 100 06/30/17 03:00 128 17 46/30 93 Mechanical Ventilator 100 06/30/17 03:00 93/46 06/30/17 02:30 129 17 82/45 92 Mechanical Ventilator 100 06/30/17 02:17 101.5 06/30/17 02:00 128 17 80/20 91 Mechanical Ventilator 100 06/30/17 01:32 131 23 100 06/30/17 01:30 131 18 100/75 92 Mechanical Ventilator 100 06/30/17 01:00 132 19 99/47 92 Mechanical Ventilator 100 06/30/17 01:00 99/47 06/30/17 00:34 134 93/53 06/30/17 00:30 134 20 93/53 93 Mechanical Ventilator 100 06/30/17 00:00 101.2 136 20 105/52 94 Mechanical Ventilator 100 06/30/17 00:00 105/52 06/29/17 23:51 136 06/29/17 23:45 104/66 06/29/17 23:45 138 21 142/104 95 Mechanical Ventilator 100 06/29/17 23:30 141 20 104/66 95 Mechanical Ventilator 100 06/29/17 23:21 140 22 100 06/29/17 23:15 141 20 103/74 94 Mechanical Ventilator 100 06/29/17 23:00 106/90 06/29/17 23:00 139 19 100/60 94 Mechanical Ventilator 100 06/29/17 22:45 159 19 96/77 93 Mechanical Ventilator 100 06/29/17 22:30 156 19 95/61 93 Mechanical Ventilator 100 06/29/17 22:15 162 21 98/60 93 Mechanical Ventilator 100 06/29/17 22:00 98/60 06/29/17 21:45 162 21 106/74 96 Mechanical Ventilator 100 06/29/17 21:30 138 24 102/58 98 Mechanical Ventilator 100 06/29/17 21:28 112/93 06/29/17 21:15 123 24 106/74 97 Mechanical Ventilator 100 06/29/17 21:09 149 23 100 17 21:00 149 23 91/58 97 Mechanical Ventilator 100 16/17 21:00 91/58 16/17 20:52 154 39/16 16/17 20:45 162 19 39/16 96 Mechanical Ventilator 100 16/17 20:30 152 19 54/34 97 Mechanical Ventilator 100 16/17 20:30 54/34 16/17 20:15 133 20 79/33 97 Mechanical Ventilator 100 1617 20:00 131 1617 20:00 135 20 46/25 99 Mechanical Ventilator 100 16/17 20:00 52/28 16/17 20:00 100 1617 19:45 123 22 50/29 99 Mechanical Ventilator 100 1617 19:30 100.4 128 22 50/29 99 Mechanical Ventilator 100 16/17 19:30 133 22 100 16/17 19:15 99.4 1617 19:00 112 26 109/80 99 Mechanical Ventilator 100 16/17 18:45 76/59 16/17 18:30 109 24 79/42 99 Mechanical Ventilator 100 16/17 18:00 96 24 81/60 100 Mechanical Ventilator 100 16/17 17:30 89 24 91/56 100 Mechanical Ventilator 100 16/17 17:15 99 25 100 16/17 17:00 90 25 95/50 100 Mechanical Ventilator 100 16/17 16:30 99 24 87/51 100 Mechanical Ventilator 100 16/17 16:00 99.4 92 21 86/53 100 Mechanical Ventilator 100 16/17 16:00 89 16/17 16:00 100 16/17 15:30 92 21 98/62 100 Mechanical Ventilator 100 16/17 15:10 99 21 100 16/17 15:00 93 21 88/75 100 Mechanical Ventilator 100 16/17 14:30 90 19 93/75 100 Mechanical Ventilator 100 16/17 14:00 96 21 102/60 100 Mechanical Ventilator 100 16/17 13:30 93 21 91/52 100 Mechanical Ventilator 100 16/17 13:10 91 21 100 16/17 13:00 94 20 89/58 100 Mechanical Ventilator 100 9/16/17 12:45 94 20 100/62 100 Mechanical Ventilator 100 06/29/17 12:30 94 19 91/53 100 Mechanical Ventilator 100 06/29/17 12:15 96 18 101/68 100 Mechanical Ventilator 100 06/29/17 12:00 97 06/29/17 12:00 100 06/29/17 12:00 97 19 101/62 100 Mechanical Ventilator 100 06/29/17 11:45 97 19 89/71 100 Mechanical Ventilator 100 06/29/17 11:30 96 19 85/56 100 Mechanical Ventilator 100 06/29/17 11:05 96 20 100 06/29/17 11:00 96 21 102/60 100 Mechanical Ventilator 100 Status: awake Condition: critical HEENT: atraumatic Neck: full ROM Lungs: chest wall tender Heart: HR/BP unstable, regular Abdomen: soft, active bowel sounds Extremities: no C/C/E, edema Decubiti: location Micro: Microbiology Date/Time Source Procedure Growth Status 06/29/17 07:15 Blood Blood Culture - Preliminary Gram Positive Nigel Resulted 06/29/17 07:00 Blood Blood Culture - Preliminary NO GROWTH AFTER 24 HOURS Resulted 06/28/17 15:00 Ascities Fluid Gram Stain - Final Resulted 06/28/17 15:00 Ascities Fluid Body Fluid Culture Pending Resulted 06/29/17 01:20 Sputum Gram Stain - Final Resulted 06/29/17 01:20 Sputum Sputum Culture - Preliminary NO GROWTH Resulted 06/28/17 00:05 Stool Clostridium difficile Toxin Assay - Final Complete Accucheck: 151 Critical Care - Subjective ROS Limited/Unobtainable: Yes Condition: critical, grave, other - moribund FI02: 100 Vent Support Breath Rate: 16 Vent Support Mode: AC Vent Tidal Volume: 600 Sputum Amount: None PEEP: 0.0 PIP: 74 I&O: Intake and Output 06/30/17 07/01/17 19:00 07:00 Output Total 0 ml Balance 0 ml Output Urine Total 0 ml CXR: extensive infiltrate ET-Tube: 7.5 ET Position: 22 NIXON CHEATHAM Jun 30, 2017 10:40
--- NOTE | 2017-06-30 11:51 | Diagnostic Imaging Report ---
Indication: Dyspnea Comparison: 06/29/17 A single view chest radiograph was obtained. Findings: Severe airspace opacification with air bronchograms demonstrate bilaterally with interval worsening. There is a left pleural effusion noted. Tubes and lines are stable. Impression: Worsening severe bilateral airspace disease.
[2017-06-30] MEDS ORDERED: NS 275ml ONE ×2 (15:50→15:51)
[2017-06-30] MEDS ORDERED: Sterile Water Irrig 1000ml IRRIG ONE (15:51)
[2017-06-30] MEDS ORDERED: Tubing IV Extension IV ONE (15:51)
[2017-06-30] MEDS ORDERED: D5W 275ml ONE (15:51)
[2017-06-30] MEDS ORDERED: Dyna-Hex 2% Top Sol 8oz TOPIC SCH (21:00)
--- NOTE | 2017-07-01 09:35 | Discharge Summary ---
Discharge Summary Hospital Course Date of Admission Jun 24, 2017 at 18:15 Date of Discharge Jun 30, 2017 at 10:45 Admitting Diagnosis RESP DISTRESS,SEPSIS HPI Tanya Lewis is a 56 year old female who was admitted on Jun 24, 2017 at 18 :15 for Respiratory Distress, Sepsis Hospital Course summary #[id number] Discharge Discharge Disposition Patient was discharged to Discharge Diagnoses: Discharge Instructions Discharge Instructions Special Instructions I have been assigned to complete a D/C Summary on this account. I was not involved in the patient management Francine Flores NP ([place]) Jul 01, 2017 09:35
[2017-07-01 13:35] LABS: COMMENT,BODY FLUID PATHOLOGIST COMMENT
[2017-07-01 14:45] LABS: OTHERS PATHOLOGIST COMMENT
--- NOTE | 2017-07-02 03:15 | Discharge Summary 2 SIG ---
SUMMARY DATE OF ADMISSION: 06/24/2017 DATE OF EXPIRATION: 06/30/2017 Reason for admission: 56-year-old female with stage IV metastatic adenocarcinoma, treated at [facility], presented by the paramedics. Upon arrival to ED, patient with agonal breathing , bradycardic, unresponsive, with pulse oximetry of 40. The patient required emergent oral intubation. According to family, the patient had episodes of emesis prior to arrival. The patient required emergency oral intubation . t and transferred to Laboratory workup revealed leukocytosis with WBC -21.1, anemia with hemoglobin- 8.9, and hematocrit- 27.3. Lactic acid -3.1. BUN -31 and creatinine-0.7. LFTs were stable. EKG revealed atrial tachycardia with heart rate of 130. Chest x-ray revealed left pleural effusion and interstitial edema, possible superimposed infiltrate on the right .Troponin was minimally elevated- 0.34. The patient was admitted to ICU for further management. ADMITTING DIAGNOSES: 1. Acute hypoxemic respiratory failure. 2. Pleural effusion. 3. Pulmonary edema. 4. Sepsis. 5. Shock secondary to sepsis. 6. Lactic acidosis. 7. Elevated troponin. 8. Possible pneumonia. 9. Metastatic adenocarcinoma, stage IV. Hospital Course: The patient was admitted to ICU. Ventilator support and pulmonary toilet provided as needed. The settings titrated as needed. Pulmonary toilet provided. The patient was followup with daily chest x-ray. The patient was required pressor for hemodynamic support. ID, GI, and Nephrology consults were requested. The patient was kept NPO. NG tube was connected to low intermittent suction. The patient was initially on empiric antibiotics . Blood culture revealed Sharon. Urine culture was negative. Sputum culture revealed Sharon. Stool for C. difficile was negative. Antibiotic regimen optimized per ID recommendations. The patient had a paracenteses due to the malignant ascites, which yielded 3.4 liters of fluid. No evidence of spontaneous bacterial peritonitis. Echocardiogram revealed no evidence of subacute bacterial endocarditis, however, poor quality of study. Ejection fraction was 45% with global left ventricular hypokinesis and right ventricular systolic pressure of 30 consistent with mild pulmonary hypertension. Per Nephrology, the patient had a low albumin and low protein. 24-hour urine protein - 502. Nephrotoxics were avoided. Renal parameters, electrolytes were closely monitored. Elevated liver enzymes initially, but worsened, possibly shock liver secondary to sepsis. CT of the head initially done in the emergency room, revealed no evidence of acute intracranial pathology. Blood sugar was managed with sliding scale of insulin. The patient had evidence of severe protein-calorie malnutrition. All consultants agreed that prognosis was extremely poor given persistent leukocytosis, intermittent high fever, and stage IV metastatic adenocarcinoma. On 06/30/2017 after thorough discussion of patient condition and prognosis with doctor,the family made a decision to change code status to DNR/DNI . Later that day, the patient was found to be in asystole. Critical care / ferryboat operator doctor was at the bedside to pronounce the patient at 1045 am on 06/30/2017. Cause of : cardiopulmonary arrest. FINAL DIAGNOSES: 1. Acute hypoxemic respiratory failure, requiring intubation. 2. Pulmonary edema. 3. Pleural effusion. 4. Sepsis with fungemia. 5. Septic shock secondary to sepsis. 6. Lactic acidosis. 7. Metastatic adenocarcinoma, stage IV. 8. Possible hospital care-associated pneumonia. 9. Dehydration. 10. Shock liver (secondary to sepsis). 11. Cardiomyopathy with ejection fraction of 45% and global left ventricular hypokinesis. 12. Malignant ascites, status post paracentesis. 13. Diabetes mellitus. 14. Severe protein-calorie malnutrition. Qamar Christie M.D. I have been assigned to dictate discharge summary on this account and I was not involved in the patient's management. Francine [facility] DR: Dejuan JOB#: [id number] CC: LUCIAN
== END 2017-06-30 10:45 | disposition expired | DRG 710 ==
LOC: EDBD 17:37 → EMR 18:11 → ICU 18:15 → EDBEDREQ 18:36
PROC: 5A1955Z Respiratory Ventilation, Greater than 96 Consecutive Hours (ICD-10-PCS; principal; 2017-06-24)
PROC: 0BH17EZ Insertion of Endotracheal Airway into Trachea, Via Natural or Artificial Opening (ICD-10-PCS; 2017-06-24)
PROC: 0W9G3ZX Drainage of Peritoneal Cavity, Percutaneous Approach, Diagnostic (ICD-10-PCS; 2017-06-28)
DX: A41.9 Sepsis, unspecified organism (principal); R65.21 Severe sepsis with septic shock; J96.01 Acute respiratory failure with hypoxia; K72.00 Acute and subacute hepatic failure without coma; R18.0 Malignant ascites; E43 Unspecified severe protein-calorie malnutrition; C80.1 Malignant (primary) neoplasm, unspecified; E86.0 Dehydration; D64.9 Anemia, unspecified; B49 Unspecified mycosis; Z68.23 Body mass index [BMI] 23.0-23.9, adult; I42.9 Cardiomyopathy, unspecified; E11.9 Type 2 diabetes mellitus without complications
CPT/HCPCS: 36415; 36600; 70450; 71010; 76942; 80053; 80150; 80202; 81003; 81050; 82105; 82248; 82378; 82550; 82553; 82607; 82728; 82746; 82803; 83540; 83550; 83605; 83735; 83880; 84100; 84156; 84443; 84484; 84550; 85007; 85025; 85610; 85730; 86140; 86301; 86850; 86900; 86901; 87040; 87070; 87086; 87205; 87324; 88104; 89051; 93005; 93306; 94002; 94003; J2370; J2765